=== PATIENT | male | born 1940 | race Hispanic/Latino ===

== ENCOUNTER → 2017-08-14 | Outpatient (CLI) | payer BC, MEDICARE ==
[~2017-08-14] MED LIST: ASPIRIN81 M2 PO; ELMIRON100 MG PO; FLUTICASONE PROP; HYDROCODONE; MELOXICAM7.5 MG PO; METOPROLOL SUCC50 MG PO; NITROFURANTOIN100 MG PO; Z.0.LISINOPRIL40 MG PO; Z.0.METOPROLOL TART5 PO; Z.0.TAMSULOSIN HCL0. PO; Z.0.TRIAMTERENE-HC1 PO; Z.1.TIZANIDINE HCL2 PO; Z.2.METFORMIN HCL500 PO
--- NOTE | 2017-08-14 10:49 | Diagnostic Imaging Report ---
PROCEDURE:KNEE THREE VIEWS BILATERAL COMPARISON:None. INDICATIONS:KNEE PAIN FINDINGS: There are no fractures, dislocations, lytic or blastic lesions. The bones are well-mineralized. The soft-tissues are unremarkable. Tricompartmental degenerative changes evidenced by joint space narrowing and subchondral sclerosis. Atherosclerotic calcifications. CONCLUSION: No acute radiographic abnormality. Degenerative changes. Dictated by: Dung Acevedo M.D. on 08/14/2017 at 10:50 Electronically approved by: Dung Acevedo M.D. on 08/14/2017 at 10:50
== END ==
LOC: RAD 08:53
PROVIDERS: ATTEND Internal Medicine
DX: M25.562 Pain in left knee (principal); M25.561 Pain in right knee

== ENCOUNTER → 2017-08-26 | Outpatient (CLI) | payer BC, MEDICARE ==
--- NOTE | 2017-08-26 09:18 | Diagnostic Imaging Report ---
Right knee MRI without contrast. History: Knee pain. Meniscus tear. Decreased range of motion. Pain not responding to conservative management. Arthritis. Comparison: None. Technique: Multiplanar multi-sequence MRI of the knee without contrast. Findings: Medial compartment: There is a complex tear involving the posterior horn and body segments of the medial meniscus. Meniscal tissue is displaced to the periphery. There is advanced full-thickness articular cartilage loss in the medial compartment with underlying bone marrow edema. There are peripheral marginal osteophytes. The medial collateral ligament complex is intact. Lateral compartment: There is a complex tear involving the posterior horn and body segments of the lateral meniscus. There are regions of articular cartilage fraying and deep fissuring in the lateral compartment with subchondral cystic change and mild bone marrow edema. There are peripheral marginal osteophytes. The lateral collateral ligament complex is intact. Intercondylar notch: There is a chronic appearing full-thickness anterior cruciate ligament tear. The posterior cruciate ligament is intact. Patellofemoral compartment: There are regions of full-thickness articular cartilage loss in the patellofemoral compartment. There are peripheral marginal osteophytes area there is mild underlying bone marrow edema. Extensor mechanism: The quadriceps and patellar tendons are normal. Other findings: There is a joint effusion and synovitis. There is no acute fracture, subluxation or avascular necrosis. Varicose veins are seen. 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 Complex lateral meniscus tear with less severe degenerative arthrosis in the lateral compartment of the knee. 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 Regions of full-thickness articular cartilage loss in the patellofemoral compartment. Signed by: Dr. Srinath Metzger M.D. on 08/26/2017 9:15 AM
--- NOTE | 2017-08-26 09:24 | Diagnostic Imaging Report ---
Left knee MRI without contrast. History: Knee pain. Meniscus tear. Decreased range of motion. Pain not responding to conservative management. Arthritis. Comparison: None. Technique: Multiplanar multi-sequence MRI of the knee without contrast. Findings: Medial compartment: There is a complex tear involving the posterior horn and body segments of the medial meniscus. Meniscal tissue is displaced to the periphery. There are regions of articular cartilage fraying and deep fissuring in the medial compartment with underlying bone marrow edema. There are peripheral marginal osteophytes. The medial collateral ligament complex is intact. Lateral compartment: There is a complex tear involving the anterior horn and body segments of the lateral meniscus. There are regions of articular cartilage fraying and deep fissuring in the lateral compartment with mild bone marrow edema. There are peripheral marginal osteophytes. The lateral collateral ligament complex is intact. Intercondylar notch: There is a chronic appearing near full-thickness anterior cruciate ligament tear. A few intact fibers are seen. The posterior cruciate ligament is intact. Patellofemoral compartment: There are regions of full-thickness articular cartilage loss in the patellofemoral compartment. There are peripheral marginal osteophytes. There is mild underlying bone marrow edema. Extensor mechanism: The quadriceps and patellar tendons are normal. Other findings: There is a joint effusion and synovitis. There is no acute fracture, subluxation or avascular necrosis. Varicose veins are seen. IMPRESSION: Complex medial meniscus tear with moderate degenerative arthrosis in the medial compartment of the knee. Complex lateral meniscus tear with less severe degenerative arthrosis in the lateral compartment of the knee. Chronic appearing near full-thickness anterior cruciate ligament tear. Regions of full-thickness articular cartilage loss in the patellofemoral compartment. Signed by: Dr. Srinath Metzger M.D. on 08/26/2017 9:21 AM
== END ==
LOC: MRI 07:37
PROVIDERS: ATTEND Specialist
DX: S83.242A Other tear of medial meniscus, current injury, left knee, initial encounter (principal); S83.241A Other tear of medial meniscus, current injury, right knee, initial encounter

== ENCOUNTER 2017-10-15 16:07 | Outpatient (RCR) | payer BC, MEDICARE | END 2017-10-25 | LOC: PT 16:07 | PROVIDERS: ATTEND Specialist | DX: M25.562 Pain in left knee (principal); M25.561 Pain in right knee | CPT/HCPCS: 97110 ×2; 97161; G8978; G8979 ==

== ENCOUNTER → 2017-11-25 | Outpatient (RCR) | payer BC, MEDICARE | LOC: PT 10-28 16:12 | PROVIDERS: ATTEND Specialist | DX: M25.562 Pain in left knee (principal); M25.561 Pain in right knee | CPT/HCPCS: 97010; 97110 ×9; 97140; 97164; G8978; G8979 ==

== ENCOUNTER 2017-12-16 07:45 | Outpatient (RCR) | payer BC, MEDICARE | END 2017-12-26 | LOC: PT 07:45 | PROVIDERS: ATTEND Specialist | DX: M25.562 Pain in left knee (principal); M25.561 Pain in right knee; M25.662 Stiffness of left knee, not elsewhere classified; M25.661 Stiffness of right knee, not elsewhere classified | CPT/HCPCS: 97110 ×5; G8978; G8979 ==

== ENCOUNTER 2018-07-28 11:10 | Inpatient (IN) | payer BC, MEDICARE ==
[~2018-07-28] VITALS: Ht 172.7 cm; Wt 80.8 kg
--- OUTSIDE RECORDS SUMMARY | 2018-07-28 11:14 | XMS REPORT | Summary of Care ---
Author Author [facility] Organization [facility] Address Unknown Phone Unavailable Encounter [facility] [place](FIN) [phone] Date(s): 05/18/18 - 05/18/18 [facility] [address], [address] [place], [place] [address] [phone] Discharge Disposition: Home or Self Care Attending Physician: Js Bellamy MD Referring Physician: Jarod Rainey MD Vital Signs No data available for this section Problem List Condition Effective Dates Status Health Status Informant Diabetes Resolved mellitus(Confirmed) Escherichia Active coli(Confirmed)1 Hypertension(Confirm Resolved ed) 1Problem added by Discern Expert. Allergies, Adverse Reactions, Alerts Substance Reaction Severity Status penicillins Active contrast media SV^Severe Active (iodine-based) Medications No data available for this section Results No data available for this section Immunizations Not Given Vaccine Date Status Refusal Reason pneumococcal 23-valent vaccine 05/12/14 Not Given Patient Refuses Procedures Procedure Date Related Diagnosis Body Site Status Craniotomy 04/20/18 Completed Appendectomy Completed Social History Social History Type Response Alcohol Never Smoking Status Former smoker; Previous treatment: None; Ready to change: No; Concerns about tobacco use in household: No; Exposure to Tobacco Smoke None; Cigarette Smoking Last 365 Days No; Reg Smoking Cessation Counseling No entered on: 05/18/18 Assessment and Plan No data available for this section
--- OUTSIDE RECORDS SUMMARY | 2018-07-28 11:14 | XMS REPORT | Continuity of Care Document ---
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 [facility] CEREBRAL MENINGES/GAMMA KNIFE CONSULT Active 05/05/2018 [facility] NEW ONSET SEIZURE Active 04/14/2018 [facility] SEIZURE Active 04/14/2018 [facility] J45.909 - "UNSPECIFIED ASTHMA, UNCOMPLIC Active 05/01/2016 [facility] [place] UNKN Active 12/14/2015 [facility] J40 - "BRONCHITIS, NOT SPECIFIED A" Active 09/12/2015 [facility] [place] Discharge Diagnosis: UTI 07/14/2014 07/16/2014 [facility] Discharge Diagnosis: Cellulitis 07/14/2014 07/16/2014 [facility] TESTICULAR PAIN Active 07/14/2014 [facility] SPLIT [id number] Active 07/07/2014 [facility] CHEST PAIN Active 05/11/2014 [facility] SOB, CHEST PAIN Active 05/11/2014 [facility] UTI Active 05/11/2014 [facility] 466.0 - ACUTE BRONCHITI Active 02/23/2014 [facility] [place] COUGH Active 05/29/2012 [facility] ALLERGIES Active 05/23/2011 [facility] LEG PAIN AND BACK Active 04/11/2011 [facility] HTN CRISIS Active 06/09/2001 [facility] Diabetes mellitus Resolved Problem 06/09/2012 [facility] Hypertension Resolved Problem 06/09/2012 [facility] Prostate Resolved Problem 12/17/2015 [facility], [facility] [place] Escherichia coli<sup>1</sup> Active Problem 05/04/2016 Problem added by Discern Expert. [facility], [facility] [place] Diabetes mellitus Resolved Problem 06/08/2018 [facility] [place],[facility] Escherichia coli<sup>1</sup> Active Problem 06/08/2018 [facility] Discern Expert[facility] Problem 06/08/2018 [facility] Diabetes mellitus Resolved Problem 05/25/2018 SELENA Renner,[facility] Escherichia coli<sup>1</sup> Active Problem 05/25/2018 Problem added by Discern Expert. [facility] Hypertension Resolved Problem 05/25/2018 SELENA Renner,[facility] URIN TRACT INFECTION NOS Active [facility] OBSTRUCTIVE SLEEP APNEA Active [facility] XRAY Active [facility] BENIGN NEOPLASM OF CEREBRAL MENINGES Active [facility] UNSPECIFIED CONVULSIONS Active [facility] Medications Medication Details Route Status Patient Instructions Ordering Provider Order Date Source NS (Bolus) IV 500 mL, 500 ml/hr, Infuse Over: 1 hr, Route: IV, 500, Drug form: INJ, ONCE, Priority: STAT, Dosing Weight 84.091 kg, Start date: 05/22/18 22:22:00 TOY DEPARTMENT MANAGER, Stop date: 05/22/18 22:22:00 TOY DEPARTMENT MANAGER Inactive 05/23/2018 [facility] Acetaminophen 325 MG / Hydrocodone Bitartrate 5 MG Oral Tablet 1 tab, Route: PO, Drug Form: TAB, Dosing Weight 84.091, kg, Q4H, PRN Pain Score 4-6, Start date: 05/18/18 11:06:00 TOY DEPARTMENT MANAGER, Duration: 30 day, Stop date: 06/17/18 11:05:00 CSTNotes: (Same as: [place] 325/5) Do not exceed 4gm/day of acetaminophen. Inactive 05/18/2018 [facility] Sodium Chloride 0.9% IV 1,000 mL 1,000 mL, Rate: 50 ml/hr, Infuse over: 20 hr, Route: IV, Dosing Weight 84.091 kg, Total Volume: 1,000, Priority: Routine, Start date: 05/18/18 11:06:00 TOY DEPARTMENT MANAGER, Duration: 30 day, Stop date: 06/17/18 11:05:00 TOY DEPARTMENT MANAGER, 2.03, m2 Inactive 05/18/2018 [facility] Acetaminophen 325 mg, 1 tab, Route: PO, Drug form: TAB, Q4H, Dosing Weight 84.091, kg, PRN Pain Score 1-3, Start date: 05/18/18 11:06:00 TOY DEPARTMENT MANAGER, Duration: 30 day, Stop date: 06/17/18 11:05:00 CSTNotes: Do not exceed 4 gm/day. (Same as: Tylenol) Inactive 05/18/2018 [facility] Fentanyl 50 microgram, Route: IVP, ONCALL, Dosing Weight 90, kg, Priority: Routine, Start date: 05/18/18 6:00:00 TOY DEPARTMENT MANAGER, Duration: 1 doses or times Inactive 05/18/2018 [facility] Bupivacaine Hydrochloride 2.5 MG/ML / Epinephrine 0.005 MG/ML Injectable Solution 30 mL, Route: MISC, Dosing Weight 90, kg, ONCALL, Start date: 05/18/18 6:00:00 TOY DEPARTMENT MANAGER, Duration: 30 day, Stop date: 06/17/18 5:59:00 TOY DEPARTMENT MANAGER Inactive 05/18/2018 [facility] Bacitracin 0.5 UNT/MG / Polymyxin B 10 UNT/MG Topical Ointment [Polysporin] 1 appl, Route: TOP, ONCALL, Drug form: OINT, Priority: Routine, Start date: 05/18/18 6:00:00 TOY DEPARTMENT MANAGER, Duration: 1 doses or times Inactive 05/18/2018 [facility] Sodium Chloride 0.9% IV 1,000 mL 1,000 mL, Rate: 50 ml/hr, Infuse over: 20 hr, Route: IV, Dosing Weight 90 kg, Total Volume: 1,000, Priority: Routine, Start date: 05/18/18 5:21:00 TOY DEPARTMENT MANAGER, Duration: 30 day, Stop date: 06/17/18 5:20:00 TOY DEPARTMENT MANAGER, 2.07, m2 Inactive 05/18/2018 [facility] Famotidine 20 mg, 2 mL, Route: IVP, Drug form: INJ, ONCE, Dosing Weight 90, kg, Start date: 05/18/18 5:21:00 TOY DEPARTMENT MANAGER, Stop date: 05/18/18 5:21:00 CSTNotes: (Same as: Pepcid) Can be dilute in 5-10cc NS IVP: Slow IV push over at least 2 minutes. Inactive 05/18/2018 [facility] Dexamethasone 6 mg, 0.6 mL, Route: IVP, Drug form: INJ, ONCE, Dosing Weight 90, kg, Start date: 05/18/18 5:21:00 TOY DEPARTMENT MANAGER, Stop date: 05/18/18 5:21:00 CSTNotes: MEDICATION WASTE Product Size: 10 mg Product Wasted: _4__ mg Inactive 05/18/2018 [facility] Ondansetron 4 mg, 2 mL, Route: IVP, Drug form: INJ, Q6H, Dosing Weight 90, kg, PRN Nausea & Vomiting, Start date: 05/18/18 5:21:00 TOY DEPARTMENT MANAGER, Duration: 30 day, Stop date: 06/17/18 5:20:00 CSTNotes: (Same as: Zofran) MEDICATION WASTE Product Size: 4 mg Product Wasted: _0__ mg Inactive 05/18/2018 [facility] Fentanyl 25 microgram, 0.5 mL, Route: IVP, Drug form: INJ, Q1H, Dosing Weight 90, kg, PRN Pain Score 7-10, Priority: Routine, Start date: 05/18/18 5:21:00 TOY DEPARTMENT MANAGER, Duration: 1 doses or times, Stop date: 05/19/18 0:00:00 CSTNotes: (Same as: Sublimaze) Preservative free. Inactive 05/18/2018 [facility] Promethazine 25 mg, 1 mL, Route: IVPB, Drug form: INJ, Q6H, Dosing Weight 90, kg, PRN Nausea & Vomiting, Start date: 05/18/18 5:21:00 TOY DEPARTMENT MANAGER, Duration: 30 day, Stop date: 06/17/18 5:20:00 CSTNotes: Do not give IV pu sh. (Same as: Phenergan) Inactive 05/18/2018 [facility] Diphen 25 mg oral capsule 50 mg=2 cap, PO, ONCE, take 2 caps by mouth one hour before the contrast medium injection., # 2 cap, 0 Refill(s), Pharmacy: [place] [id number] Active 05/15/2018 [facility] Prednisone 50 MG Oral Tablet 50 mg=1 tab, PO, Daily, take 1 tab by mouth 13 hours, 7 hours, and 1 hour before cotrast medium injection, # 3 tab, 0 Refill(s), Pharmacy: [place] [id number] No Longer Active 05/15/2018 [facility] Rocephin 1 gm, Route: IVPB, Drug form: PDR/INJ, ONCE, Dosing Weight 104.545, kg, Priority: STAT, Start date: 07/14/14 10:20:00, Stop date: 07/14/14 10:20:00 Inactive 07/14/2014 [facility] clindamycin 300 mg oral capsule 300 mg=1 cap, PO, Q6H, # 28 cap, 0 Refill(s) Active 07/14/2014 [facility] Ciprofloxacin 500 MG Oral Tablet [Cipro] 500 mg=1 tab, PO, Q12H, # 28 tab, 0 Refill(s) Active 07/14/2014 [facility] Morphine 4 mg, 2 mL, Route: IVP, Drug form: INJ, ONCE, Dosing Weight 104.545, kg, Priority: STAT, Start date: 07/14/14 8:19:00, Stop date: 07/14/14 8:19:00Notes: (Same as:MORPhine Sulfate) Inactive 07/14/2014 [facility] Zofran 4 mg, 2 mL, Route: IVP, Drug form: INJ, ONCE, Dosing Weight 104.545, kg, Priority: STAT, Start date: 07/14/14 8:19:00, Stop date: 07/14/14 8:19:00Notes: (Same as: Zofran) Inactive 07/14/2014 [facility] Sodium Chloride 0.154 MEQ/ML Injectable Solution 1,000 mL, 1,000 ml/hr, Infuse Over: 1 hr, Route: IV, 1,000, Drug form: INJ, ONCE, Priority: STAT, Dosing Weight 104.545 kg, Start date: 07/14/14 8:19:00, Duration: 1 doses or times, Stop date: 07/14/14 8:19:00 Inactive 07/14/2014 [facility] 0.4 ML Enoxaparin sodium 100 MG/ML Prefilled Syringe [Lovenox] 40 mg, SUB-Q, Daily, # 20 syr, 0 Refill(s) Active 05/19/2014 [facility] Vitamin D3 1000 intl units oral tablet, chewable 1,000 IntlUnit=1 tab, CHEW, Daily, 0 Refill(s) Active 05/19/2014 [facility] Insulin Aspart 100 unit/ml - (Starting CD) See Special Instructions, SUB-Q, TID-Before Meals, Check blood sugar before breakfast, lunch, and dinner, and inject correction doses: Inject 1 unit if Sugar 150-199, Inject 2 units if Sugar 200-249, Inject 3 units if Sugar 250-299, Inject 4 units if...Special Instructions: Check blood sugar before breakfast, lunch, and dinner, and inject correction doses: Inject 1 unit if Sugar 150-199, Inject 2 un its if Sugar 200-249, Inject 3 units if Sugar 250-299, Inject 4 units if Sugar 300-349, Inject 5 units if Sugar is 350 or more Active 05/19/2014 [facility] Aspirin 325 MG Oral Tablet 325 mg=1 tab, PO, Daily, # 90 tab, 0 Refill(s) Active 05/19/2014 [facility] Metformin hydrochloride 500 MG Oral Tablet 500 mg=1 tab, PO, BID, # 30 tab, 0 Refill(s) Active 05/19/2014 [facility] Insulin, Aspart, Human 5 unit, SUB-Q, TID-Before Meals, Blood Glucose Results, 0 Refill(s) No Longer Active 05/18/2014 [facility] glucagon recombinant 1 mg injection 1 mg, IM, PRN, Blood Glucose Results, 0 Refill(s) Active 05/18/2014 [facility] finasteride 5 mg oral tablet 5 mg=1 tab, PO, Daily, 0 Refill(s) Active 05/18/2014 [facility] Enoxaparin 40 mg=0.4 mL, SUB-Q, [id number], 0 Refill(s) No Longer Active 05/18/2014 [facility] Avodart 0.5 mg, Route: PO, Drug form: CAP, Daily, Dosing Weight 96.727, kg, Start date: 05/18/14 9:00:00, Duration: 30 day, Stop date: 06/16/14 9:00:00 No Longer Active 05/18/2014 [facility] meropenem 500 mg, Route: IVPB, Drug form: PDR/INJ, ABXQ6H, Dosing Weight 96.727, kg, CrCL >=50ml/min, Extended infusion, infuse over 3 hours, Start date: 05/15/14 16:00:00, Duration: 30 day, Stop date: 06/14/14 10:00:00Notes: Same as Merrem.. No Longer Active 05/15/2014 [facility] metoprolol extended release 50 mg, 1 tab, Route: PO, Drug form: ERTAB, Daily, Start date: 05/14/14 9:00:00, Duration: 30 day, Stop date: 06/12/14 9:00:00Notes: (Same as: Toprol XL) May split tab, but do not crush. No Longer Active 05/14/2014 [facility] meloxicam 7.5 mg, 1 tab, Route: PO, Drug form: TAB, Daily, Dosing Weight 104.091, kg, Start date: 05/14/14 9:00:00, Duration: 30 day, Stop date: 06/12/14 9:00:00Notes: (Same as: Mobic) No Longer Active 05/14/2014 [facility] Lisinopril 40 mg, 2 tab, Route: PO, Drug form: TAB, Daily, Dosing Weight 104.091, kg, Start date: 05/14/14 9:00:00, Duration: 30 day, Stop date: 06/12/14 9:00:00Notes: (Same as: Prinivil, Zestril) No Longer Active 05/14/2014 [facility] Dutasteride 0.5 mg, Route: PO, Drug form: CAP, Daily, Dosing Weight 104.091, kg, Start date: 05/14/14 9:00:00, Duration: 30 day, Stop date: 06/12/14 9:00:00 No Longer Active 05/14/2014 [facility] Vitamin B 12 1,000 microgram, 2 tab, Route: PO, Drug form: TAB, Daily, Dosing Weight 104.091, kg, Start date: 05/14/14 9:00:00, Duration: 30 day, Stop date: 06/12/14 9:00:00Notes: (Same As: Vitamin B12) No Longer Active 05/14/2014 [facility] Proscar 5 mg, 1 tab, Route: PO, Drug form: TAB, Daily, Start date: 05/14/14 9:00:00, Duration: 30 day, Stop date: 06/12/14 9:00:00Notes: (Same as: Proscar) "Do Not Crush" No Longer Active 05/14/2014 [facility] Hydrochlorothiazide 25 MG / Triamterene 37.5 MG Oral Capsule 1 tab, Route: PO, Drug Form: TAB, Dosing Weight 104.091, kg, Before Breakfast, Start date: 05/14/14 7:30:00, Duration: 30 day, Stop date: 06/12/14 7:30:00Notes: (triamterene-hydrochlorothiazide 37.5-25 mg TAB) (Same As: Maxzide-25) No Longer Active 05/14/2014 [facility] Robitussin-DM 5 ml, Route: PO, Drug Form: SYRP, Dosing Weight 96.727, kg, Q6H, PRN as needed for cough, Start date: 05/14/14 6:42:00, Duration: 30 day, Stop date: 06/13/14 6:41:00Notes: (dextromethorphan-guaifenes in 10-100mg/5ml 10 ml oral SOLN ud) (Same as: Robitussin DM) No Longer Active 05/14/2014 [facility] tamsulosin 0.4 mg, 1 cap, Route: PO, Drug form: CAP, Daily, Dosing Weight 96.727, kg, Priority: NOW, Start date: 05/13/14 22:06:00, Duration: 30 day, Stop date: 06/12/14 9:00:00Notes: (Same As: Flomax) "Do Not Crush" No Longer Active 05/14/2014 [facility] Metformin 500 mg, 1 tab, Route: PO, Drug form: TAB, BID, Dosing Weight 104.091, kg, Start date: 05/13/14 9:00:00, Duration: 30 day, Stop date: 06/11/14 17:00:00Notes: (Same as: Glucophage) Take with meal No Longer Active 05/13/2014 [facility] Enoxaparin 40 mg, 0.4 mL, Route: SUB-Q, Drug form: INJ, [id number], Dosing Weight 104.091, kg, Start date: 05/12/14 22:00:00, Duration: 30 day, Stop date: 06/10/14 22:00:00Notes: (Same as: Lovenox) No Longer Active 05/13/2014 [facility] Tylenol 650 mg, 2 tab, Route: PO, Drug form: TAB, Q6H, Dosing Weight 104.091, kg, PRN Pain Score 1-3, Start date: 05/12/14 19:28:00, Duration: 30 day, Stop date: 06/11/14 19:27:00Notes: Do not exceed 4 gm/day. (Same as: Tylenol) No Longer Active 05/13/2014 [facility] Glucagon 1 mg, Route: IM, Drug form: PDR/INJ, PRN, Dosing Weight 104.091, kg, PRN Blood Glucose Results, Start date: 05/12/14 17:57:00, Duration: 30 day, Stop date: 06/11/14 17:56:00 No Longer Active 05/12/2014 [facility] Dextrose 50% Syringe 12.5 gm, 25 mL, Route: IVP, Drug Form: INJ, Dosing Weight 104.091, kg, PRN, PRN Blood Glucose Results, Start date: 05/12/14 17:57:00, Duration: 30 day, Stop date: 06/11/14 17:56:00 No Longer Active 05/12/2014 [facility] Insulin, Aspart, Human 5 unit, 0.05 mL, Route: SUB-Q, Drug form: SOLN, TID-Before Meals, Dosing Weight 104.091, kg, PRN Blood Glucose Results, Start date: 05/12/14 17:57:00, Duration: 30 day, Stop date: 06/11/14 17:56:00Notes: Roll in palms of hands gently; Do not shake vigorously. (Same as: NovoLOG) "single patient use only" Stable for 28 days at room temperature. Expires in days from Date No Longer Active 05/12/2014 [facility] Dextrose 50% Syringe 50 mL, Route: IVP, Dosing Weight 104.091, kg, PRN, PRN Blood Glucose Results, Start date: 05/12/14 17:55:00, Duration: 30 day, Stop date: 06/11/14 17:54:00 Inactive 05/12/2014 [facility] Glucagon 1 mg, Route: IM, PRN, Dosing Weight 104.091, kg, PRN Blood Glucose Results, Start date: 05/12/14 17:55:00, Duration: 30 day, Stop date: 06/11/14 17:54:00 Inactive 05/12/2014 [facility] Levaquin 500 mg, 100 mL, Route: IVPB, Drug form: INJ, [id number], Dosing Weight 104.091, kg, Start date: 05/12/14 17:00:00, Duration: 30 day, Stop date: 06/10/14 17:00:00Notes: (Same as:Levaquin) No Longer Active 05/12/2014 [facility] Hydrochlorothiazide 25 MG / Triamterene 37.5 MG Oral Capsule 1 cap, PO, Before Breakfast, 0 Refill(s) Active 05/12/2014 [facility] pneumococcal capsular polysaccharide type 1 vaccine / pneumococcal capsular polysaccharide type 10A vaccine / pneumococcal capsular polysaccharide type 11A vaccine / pneumococcal capsular polysaccharide type 12F vaccine / pneumococcal capsular polysacchar 0.5 ml, Route: IM, Drug Form: INJ, Daily, Start date: 05/12/14 9:00:00, Duration: 1 doses or times, Stop date: 05/12/14 9:00:00Notes: (Same as: Pneumovax 23) Refrigerate Inactive 05/12/2014 [facility] Saline Flush 0.9% 10 ml, Route: IVP, Drug Form: INJ, Dosing Weight 104.545, kg, Q12H, Start date: 05/12/14 9:00:00, Duration: 30 day, Stop date: 06/10/14 21:00:00Notes: (Same as: BD Posiflush) No Longer Active 05/12/2014 [facility] Aspirin 325 MG Enteric Coated Tablet 325 mg, 1 tab, Route: PO, Drug form: ECTAB, Daily, Dosing Weight 104.545, kg, Start date: 05/12/14 9:00:00, Duration: 30 day, Stop date: 06/10/14 9:00:00Notes: (Do Not Crush) Do not crush or chew. No Longer Active 05/12/2014 [facility] tamsulosin 0.4 mg oral capsule 0.4 mg=1 cap, PO, Daily, # 30 cap, 0 Refill(s) Active 05/12/2014 [facility] Dutasteride 0.5 MG / Tamsulosin hydrochloride 0.4 MG Oral Capsule [Carlene] 1 cap, PO, Daily, 0 Refill(s) Active 05/12/2014 [facility] Sulfamethoxazole 400 MG / Trimethoprim 80 MG Oral Tablet 2 tab, BID, 0 Refill(s) No Longer Active 05/12/2014 [facility] Sulfamethoxazole 0 Refill(s) No Longer Active 05/12/2014 [facility] Vitamin D 1000, 0 Refill(s) No Longer Active 05/12/2014 [facility] Vitamin B-12 1000 mcg oral tablet 1,000 microgram=1 tab, PO, Daily, # 30 tab, 0 Refill(s) No Longer Active 05/12/2014 [facility] metoprolol 50 mg oral tablet, extended release 50 mg, PO, Daily, # 30 tab, 0 Refill(s) Active 05/12/2014 [facility] aspirin 0 Refill(s) No Longer Active 05/12/2014 [facility] Metformin 500 mg, BID, 0 Refill(s) No Longer Active 05/12/2014 [facility] meloxicam 7.5 mg oral tablet 7.5 mg=1 tab, PO, Daily, # 30 tab, 0 Refill(s) Active 05/12/2014 [facility] lisinopril 40 mg oral tablet 40 mg=1 tab, PO, Daily, # 30 tab, 0 Refill(s) Active 05/12/2014 [facility] Saline Flush 0.9% 10 ml, Route: IVP, Drug Form: INJ, Dosing Weight 104.545, kg, PRN, PRN Line Flush, Start date: 05/12/14 7:31:00, Duration: 30 day, Stop date: 06/11/14 7:30:00Notes: (Same as: BD Posiflush) No Longer Active 05/12/2014 [facility] Nitroglycerin 0.4 mg, 1 tab, Route: SL, Drug form: TAB, Q5Min, Dosing Weight 104.545, kg, PRN Chest Pain, Start date: 05/12/14 7:31:00, Duration: 3 doses or times, Stop date: Limited # of timesNotes: (Same as:Nitr oquick, Nitrostat) "Do Not Crush" Sublingual tablet No Longer Active 05/12/2014 [facility] aspirin 325 mg, Route: PO, Drug form: TAB, ONCE, Dosing Weight 104.545, kg, Priority: STAT, Start date: 05/12/14 3:58:00, Stop date: 05/12/14 3:58:00 Inactive 05/12/2014 [facility] Albuterol 0.833 MG/ML / Ipratropium [place] 0.167 MG/ML Inhalant Solution [DuoNeb] 3 ml, Route: INHALATION, Drug Form: SOLN, Dosing Weight 104.545, kg, PRN, PRN Respiratory Protocol, Start date: 05/12/14 2:12:00, Duration: 30 day, Stop date: 06/11/14 2:11:00Notes: (Same as: Duoneb) No Longer Active 05/12/2014 [facility] Sodium Chloride 0.154 MEQ/ML Injectable Solution 1,000 mL, 1,000 ml/hr, Infuse Over: 1 Hour, Route: IV, ONCE, Priority: STAT, Dosing Weight 104.545 kg, Start date: 05/12/14 1:46:00, Duration: 1 doses or times, Stop date: 05/12/14 1:46:00 Inactive 05/12/2014 [facility] Ciprofloxacin 400 mg, Route: IVPB, ONCE, Dosing Weight 104.545, kg, Priority: STAT, Start date: 05/12/14 1:45:00, Stop date: 05/12/14 1:45:00 Inactive 05/12/2014 [facility] Saline Flush 0.9% 10 mL, Route: IVP, Drug Form: INJ, Dosing Weight 104.545, kg, PRN, PRN Line Flush, Start date: 05/12/14 0:52:00, Duration: 30 day, Stop date: 06/11/14 0:51:00Notes: (Same as: BD Posiflush) Inactive 05/12/2014 [facility] albuterol 90 mcg/inh inhalation aerosol 1-2 puff, INHALATION, QID, PRN, 1 unit, wheezing, Substitution Allowed, Maintenance INHALATION Active Shahnaz 06/07/2012 [facility] Azithromycin 5 Day Dose Pack 250 mg oral tablet 250 mg, PO, Daily, Take 2 tablets by mouth the first day then 1 tablet by mouth days 2- 5, 6 tab, Substitution AllowedTake 2 tablets by mouth the first day then 1 tablet by mouth days 2-5 PO Active [place] 06/07/2012 [facility] DuoNeb inhalation solution 3 mL, Route: INHALATION, Drug Form: SOLN, Dosing Weight 100, kg, ONCE, Start date: 06/07/12 15:07:00, Stop date: 06/07/12 15:07:00 INHALATION No Longer Active [place] 06/07/2012 [facility] Saline Flush 0.9% 5 mL, Route: IVP, Drug Form: INJ, Dosing Weight 100, kg, Q8H, PRN Line Flush, Start date: 06/07/12 15:07:00, Duration: 30 day, Stop date: 07/07/12 15:06:00, Administer at least once every 8 hoursAdmi nister at least once every 8 hours IVP No Longer Active [place] 06/07/2012 [facility] predniSONE 50 mg oral tablet 50 mg, 1 tab, PO, Daily, 5 tab, Substitution Allowed, TAB PO Active [place] 05/23/2011 [facility] Pepcid 20 mg oral tablet 20 mg, 1 tab, Route: PO, Drug form: TAB, ONCE, Start date: 05/23/11 14:30:00, Stop date: 05/23/11 14:30:00 PO No Longer Active [place] 05/23/2011 [facility] albuterol 0.083% inhalation solution 2.49 mg, Route: NEB, ONCE, Priority: STAT, Start date: 05/23/11 14:03:00, Stop date: 05/23/11 14:03:00 NEB No Longer Active [place] 05/23/2011 [facility] budesonide 0.5 mg, Route: NEB, ONCE, Priority: STAT, Start date: 05/23/11 14:03:00, Stop date: 05/23/11 14:03:00 NEB No Longer Active [place] 05/23/2011 [facility] Saline Flush 0.9% 5 ml, Route: IVP, Drug Form: INJ, PRN, PRN Line Flush, Start date: 05/23/11 13:57:00, Duration: 30 day, Stop date: 06/22/11 13:56:00 IVP No Longer Active [place] 05/23/2011 [facility] famotidine 20 mg, 2 mL, Route: IVP, Drug form: INJ, ONCE, Priority: STAT, Start date: 05/23/11 13:57:00, Stop date: 05/23/11 13:57:00 IVP No Longer Active [place] 05/23/2011 [facility] methylPREDNISolone SODium SUCCinate 125 mg, 2 mL, Route: IVP, Drug form: INJ, ONCE, Priority: STAT, Start date: 05/23/11 13:57:00, Stop date: 05/23/11 13:57:00 IVP No Longer Active [place] 05/23/2011 [facility] diphenhydrAMINE 25 mg, 0.5 mL, Route: IVP, Drug form: INJ, ONCE, Priority: STAT, Start date: 05/23/11 13:57:00, Stop date: 05/23/11 13:57:00 IVP No Longer Active [place] 05/23/2011 [facility] epinephrine 0.3 mg, 0.3 mL, Route: SUB-Q, Drug form: INJ, ONCE, Priority: STAT, Start date: 05/23/11 13:57:00, Stop date: 05/23/11 13:57:00 SUB-Q No Longer Active [place] 05/23/2011 [facility] [place] 7.5/325 oral tablet 1-2 tab, PO, Q4-6H, PRN, 30 tab, Pain, Substitution Allowed, Maintenance PO Active Edmundo 04/12/2011 [facility] acetaminophen-hydrocodone 325 mg-10 mg oral tablet 1 tab, Route: PO, Drug Form: TAB, ONCE, STAT, Start date: 04/12/11 6:37:00, Stop date: 04/12/11 6:37:00 PO No Longer Active [facility] 04/12/2011 [facility] Allergies, Adverse Reactions, Alerts Substance Category Reaction Severity Reaction type Status Date Reported Comments Source penicillins Assertion Drug allergy Active [facility] contrast media (iodine-based) Assertion SV^Severe Drug allergy Active [facility] Immunizations Immunization Date Given Site Status Last Updated Comments Source pneumococcal 23-valent vaccine 05/12/2014 Not Given [facility], [facility] [place] pneumococcal 23-valent vaccine 05/12/2014 [facility] 05/12/2014 Not Given [facility] Results Order Name Results Value Reference Range Date Interpretation Comments Source CHEM PANEL eGFR 47 mL/min/1.73m2 05/23/2018 Result Comment: The eGFR is calculated using the CKD-EPI formula. In most young, healthy individuals the eGFR will be >90 mL/min/1.73m2. The eGFR declines with age. An eGFR of 60-89 may be normal in some populations, particularly the elderly, for whom the CKD-EPI formula has not been extensively validated. Use of the eGFR is not recommended in the following populations: Individuals with unstable creatinine concentrations, including patients and those with serious co-morbid conditions. Patients with extremes in muscle mass or diet. The data above are obtained from the National Kidney Disease Education Program (NKDEP) which additionally recommends that when the eGFR is used in patients with extremes of body mass index for purposes of drug dosing, the eGFR should be multiplied by the estimated BMI. [facility] CHEM PANEL Calcium Lvl 9.1 mg/dL 8.5 - 10.5 05/23/2018 [facility] CHEM PANEL CO2 27 meq/L 24 - 32 05/23/2018 [facility] CHEM PANEL Chloride Lvl 102 meq/L 95 - 109 05/23/2018 [facility] CHEM PANEL Potassium Lvl 3.9 meq/L 3.5 - 5.1 05/23/2018 [facility] CHEM PANEL Sodium Lvl 139 meq/L 135 - 145 05/23/2018 [facility] CHEM PANEL BUN 33 mg/dL 7 - 22 05/23/2018 [facility] CHEM PANEL Creatinine Lvl 1.44 mg/dL 0.50 - 1.40 05/23/2018 [facility] CHEM PANEL Glucose Lvl 109 mg/dL 70 - 99 05/23/2018 [facility] CHEM PANEL AGAP 13.9 meq/L 10.0 - 20.0 05/23/2018 [facility] HEMATOLOGY Platelet 164 K/CMM 133 - 450 05/23/2018 [facility] HEMATOLOGY MPV 7.8 fL 7.4 - 10.4 05/23/2018 [facility] HEMATOLOGY MCHC 35.2 g/dL 32.0 - 36.0 05/23/2018 [facility] HEMATOLOGY RDW 13.6 % 11.5 - 14.5 05/23/2018 [facility] HEMATOLOGY MCH 33.2 pg 27.0 - 31.0 05/23/2018 [facility] HEMATOLOGY Hgb 13.7 g/dL 14.0 - 18.0 05/23/2018 [facility] HEMATOLOGY Hct 39.0 % 42.0 - 54.0 05/23/2018 [facility] HEMATOLOGY WBC 9.5 K/CMM 3.7 - 10.4 05/23/2018 [facility] HEMATOLOGY RBC 4.14 M/CMM 4.70 - 6.10 05/23/2018 [facility] HEMATOLOGY MCV 94.2 fL 80.0 - 94.0 05/23/2018 [facility] HEMATOLOGY Plt Morph Normal (05/22/18 10:45 PM) 05/23/2018 [facility] HEMATOLOGY Lymphocytes 20.4 % 20.0 - 40.0 05/23/2018 [facility] HEMATOLOGY Monocytes 11.5 % 2.0 - 12.0 05/23/2018 [facility] HEMATOLOGY Segs 64.2 % 45.0 - 75.0 05/23/2018 [facility] HEMATOLOGY RBC Morph Normal (05/22/18 10:45 PM) 05/23/2018 [facility] HEMATOLOGY Basophils 0.7 % 0.0 - 1.0 05/23/2018 [facility] HEMATOLOGY Neutrophils # 6.1 K/CMM 1.5 - 8.1 05/23/2018 [facility] HEMATOLOGY Lymphocytes # 1.9 K/CMM 1.0 - 5.5 05/23/2018 [facility] HEMATOLOGY Eosinophils 3.2 % 0.0 - 4.0 05/23/2018 [facility] HEMATOLOGY Eosinophils # 0.3 K/CMM 0.0 - 0.5 05/23/2018 [facility] HEMATOLOGY Basophils # 0.1 K/CMM 0.0 - 0.2 05/23/2018 [facility] HEMATOLOGY Monocytes # 1.1 K/CMM 0.0 - 0.8 05/23/2018 [facility] Brain wo contrast CT Brain wo contrast CT EXAM: CT BRAIN WITHOUT CONTRAST DATE: 05/22/2018 21:37 INDICATION: - headache COMPARISON: Brain MRI dated 05/18/2018. Brain CT dated 05/18/2018. TECHNIQUE: Routine axial CT images of the brain were obtained. Reformatted images in the sagittal and coronal plane were included. IV contrast: None. DLP: 872 mGy-cm FINDINGS: Status post resection of left frontal meningioma is again demonstrated. Hyperattenuation in the left cerebral convexity adjacent to the craniotomy, which may represent hemorrhage and/or granulation tissue is again demonstrated, with a tiny pockets of pneumocephalus. Encephalomalacia in the left frontal lobe is again demonstrated. Confluent microvascular ischemic changes in the periventricular and subcortical white matter are again identified. IMPRESSION: Expected evolutionary changes of the operative cavity in the left frontal convexity. Microvascular ischemic changes and volume loss. There is no adverse change. 05/22/2018 - - This report was dictated by a Swatch Maker/Fellow/Physician Skimmer. I have personally reviewed the images as well as the interpretation and agree with the findings. Read by: Siva Lu MD Resident/Fellow/Physician Skimmer: Siva Lu MD Dictated Date/time: 05/22/18 21:51 Electronically Signed by: Paz Barrow 05/22/18 22:53 FINAL REPORT [facility] CHEM PANEL POC Creatinine 1.6 mg/dL 0.5 - 1.4 05/18/2018 [facility] CHEM PANEL eGFR 41 mL/min/1.73m2 05/18/2018 Result Comment: The eGFR is calculated using the CKD-EPI formula. In most young, healthy individuals the eGFR will be >90 mL/min/1.73m2. The eGFR declines with age. An eGFR of 60-89 may be normal in some populations, particularly the elderly, for whom the CKD-EPI formula has not been extensively validated. Use of the eGFR is not recommended in the following populations: Individuals with unstable creatinine concentrations, including patients and those with serious co-morbid conditions. Patients with extremes in muscle mass or diet. The data above are obtained from the National Kidney Disease Education Program (NKDEP) which additionally recommends that when the eGFR is used in patients with extremes of body mass index for purposes of drug dosing, the eGFR should be multiplied by the estimated BMI. [facility] Brain w contrast CT Brain w contrast CT EXAM: CT BRAIN WITH CONTRAST INDICATION: - Gamma Knife, malignant neoplasm COMPARISON: MRI brain of the same day TECHNIQUE: Routine axial CT images of the brain were obtained. DISCUSSION: Left frontal resection cavity is redemonstrated with associated extra dural fluid. IMPRESSION: Images are adequate for localization. 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 TECHNIQUE: Axial postcontrast 3-D T1 weighted imaging was acquired through the brain. IV contrast: 18 mL of MultiHance FINDINGS: Limited sequence was acquired for treatment planning. There are expected postoperative changes of left frontal craniotomy. A focal area of nodular enhancement is seen lining the left aspect of the anterior third of the superior sagittal sinus, in close relationship with the superior and medial aspect of the surgical cavity [series 201, image [id number]], measuring approximately 9 x 6 x 10 mm (CCxAPxT), likely representing a small focus of residual tumor. The degree of dural sinus invasion cannot be established in the present examination. There is generalized dilation of the supratentorial ventricular system, associated with proportional widening of the subarachnoid space, indicating diffuse cortical volume loss. There are confluent areas of the distal hyperintensity within the periventricular white matter, likely representing chronic microvascular ischemic changes. There are prominent perivascular spaces within the basal ganglia. The major intracranial flow voids are well preserved. IMPRESSION: 1. Small area of nodular enhancement along the superior and medial aspect of the surgical cavity, in close relationship with the superior sagittal sinus, likely representing a residual tumor 2. Images are adequate for treatment planning 05/18/2018 - - This report was dictated by a Swatch Maker/Fellow/Physician Skimmer. I have personally reviewed the images as well as the interpretation and agree with the findings. Read by: Ernesto Mcleod Resident/Fellow/Physician Skimmer: Ernesto Mcleod Dictated Date/time: 05/18/18 09:57 Electronically Signed by: Kendall Coleman MD 05/18/18 11:00 FINAL REPORT [facility] Elbow 3 views DX Elbow 3 views DX EXAM: XR LEFT ELBOW 3 VIEWS DATE: 04/19/2018 10:32 AM TOY DEPARTMENT MANAGER INDICATION: - Pain COMPARISON: None TECHNIQUE: AP, lateral and oblique radiographs of the elbow FINDINGS: No acute fracture or malalignment is identified. 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 There is no excessive joint fluid. No soft tissue abnormality is identified. IMPRESSION: No acute abnormality. 04/19/2018 - - Read by: So Kenyon MD Dictated Date/time: 04/19/18 13:41 Electronically Signed by: So Kenyon MD 04/19/18 13:41 FINAL REPORT [facility] Shoulder series DX Shoulder series DX EXAM: XR RIGHT SHOULDER 3 VIEWS DATE: 04/19/2018 10:32 AM TOY DEPARTMENT MANAGER INDICATION: - Pain COMPARISON: None TECHNIQUE: AP views in internal and external rotation, and an axillary view of the shoulder FINDINGS: Suboptimal images of the shoulder visualized showing osteoarthritis without definite acute abnormality. No acute fracture or malalignment is identified. No soft tissue abnormality is identified. IMPRESSION: No definite acute abnormality. 04/19/2018 - - Read by: So Kenyon MD Dictated Date/time: 04/19/18 13:39 Electronically Signed by: So Kenyon MD 04/19/18 13:41 FINAL REPORT [facility] Brain Stealth wo contrast CT Brain Stealth wo contrast CT EXAM: CT BRAIN WITHOUT CONTRAST -STEALTH LOCALIZATION. DATE: 04/19/2018 9:49 AM TOY DEPARTMENT MANAGER INDICATION: - prior to OR, left frontal convexity meningioma. COMPARISON: MRI brain with and without contrast 04/15/2018. TECHNIQUE: Noncontrast high-resolution images of the brain were obtained. Coronal and sagittal reformatted images are provided. IV contrast: None. FINDINGS: High-resolution CT images of the head are performed . Correlations made with prior contrast enhanced magnetic resonance imaging images. The 3.7 x 3.5 cm left anterior frontal convexity meningioma is unchanged in size. Associated mass effect on the left frontal lobe. Vasogenic edema is seen in the contiguous left frontal white matter. No midline shift. The ventricles are stable in size. Hypodensities in the supratentorial white matter likely represent chronic migraines hepatic change. The basal cisterns are patent. IMPRESSION: Images adequate for localization. Left anterior frontal convexity meningioma. 04/19/2018 - - Read by: Shilpi Goode MD Dictated Date/time: 04/19/18 14:27 Electronically Signed by: Shilpi Goode MD 04/19/18 14:32 FINAL REPORT [facility] Shoulder series DX Shoulder series DX EXAM: XR RIGHT SHOULDER 3 VIEWS DATE: 04/17/2018 at 0535 hours. INDICATION: - Arm pain COMPARISON: Chest radiograph 04/14/2018. TECHNIQUE: AP views in internal and external rotation, and an axillary view of the shoulder FINDINGS: No acute fracture or malalignment is identified. Mild degenerative changes of the acromioclavicular joint. Cortical irregularity along the greater tuberosity visualized. No soft tissue abnormality is identified. IMPRESSION: Cortical irregularity along the greater tuberosity suggestive of rotator cuff pathology. No acute osseous abnormality. 04/17/2018 - - This report was dictated by a Swatch Maker/Fellow/Physician Skimmer. I have personally reviewed the images as well as the interpretation and agree with the findings. Read by: Bg Zavala MD Resident/Fellow/Physician Skimmer: Bg Zavala MD Dictated Date/time: 04/17/18 09:15 Electronically Signed by: So Kenyon MD 04/17/18 11:50 FINAL REPORT [facility] Pelvis AP DX Pelvis AP DX EXAM: XR PELVIS 1 VIEW DATE: 04/17/2018 at 0533 hours. INDICATION: - Pain COMPARISON: Lumbar spine radiograph 04/12/2011. TECHNIQUE: Frontal pelvis FINDINGS: No acute fracture or malalignment is identified. Degenerative changes are seen in the lower lumbar spine and hip joints. No soft tissue abnormality is identified. IMPRESSION: 1. No acute bony abnormality. 2. Degenerative changes in the lumbar spine and hip joints. 04/17/2018 - - This report was dictated by a Swatch Maker/Fellow/Physician Skimmer. I have personally reviewed the images as well as the interpretation and agree with the findings. Read by: Bg Zavala MD Resident/Fellow/Physician Skimmer: Bg Zavala MD Dictated Date/time: 04/17/18 09:12 Electronically Signed by: So Kenyon MD 04/17/18 09:15 FINAL REPORT [facility] Spine cervical wo contrast CT Spine cervical wo contrast CT EXAM: CT CERVICAL SPINE WITHOUT CONTRAST DATE: 04/17/2018 INDICATION: - Neck pain, R arm pain, neck rigidity COMPARISON: none TECHNIQUE: Volumetric CT acquisition of the cervical spine without contrast. Axial, sagittal and coronal reconstructions. IV contrast: None. DLP: 542 mGy-cm FINDINGS: Vertebral bodies: The craniocervical junction is normal. The height of the vertebral bodies is preserved. There is a subtle scoliotic curvature of cervical spine with the vertex toward the right. Benign-appearing radiolucent lesions and the base of the dens and in the body of C2 on the right side are identified, with a sclerotic margin. Disks, uncovertebral and facet joints: Narrowing of the intervertebral vertebral disc spaces with uncovertebral osteophytes is present at multiple levels. There is sclerosis of the vertebral bodies from C3 through C6. Cartilaginous nodes are identified at multiple levels. * C2-C3: The spinal canal and the neural foramina are patent. * C3-C4: There is narrowing of the left neural foramen secondary to uncovertebral and facet joint hypertrophy. * C4-C5: There is narrowing of the left neural foramen secondary to uncovertebral and facet joint hypertrophy. * C5-C6: There is mild narrowing of the right neural foramen and significant narrowing of the left neural foramen as a result of uncovertebral and facet joint hypertrophy. * C6-C7: The spinal canal and the neural foramina are patent. Neck soft tissues: Soft tissue calcifications posterior to the dens the region of the tectorial membrane are identified. The density of the spinal canal is otherwise unremarkable. The paraspinal soft tissues are normal. IMPRESSION: Degenerative changes of the disks, uncovertebral and facet joints, causing neural foraminal narrowing at multiple levels. Benign appearing radiolucent lesion in the body of C2 and the base of the dens, without clinical significance. 04/16/2018 - - Read by: Paz Barrow M Dictated Date/time: 04/17/18 09:15 Electronically Signed by: Paz Barrow 04/17/18 09:37 FINAL REPORT [facility] Brain w contrast MRI STEALTH Brain w contrast MRI STEALTH EXAM: MRI BRAIN WITH AND WITHOUT CONTRAST EXAM: MRI BRAIN WITH AND WITHOUT CONTRAST, STEALTH PROTOCOL. DATE: 04/14/2018 INDICATION: - better characterization of meningioma COMPARISON: CT brain 04/14/2018. TECHNIQUE: Multiplanar, multisequence MRI of the brain with and without intravenous contrast. High resolution postcontrast images of the brain for the purposes of treatment planning using stealth protocol were included. IV contrast: 18 mL MultiHance. FINDINGS: Examination is limited by patient motion. There is is an avidly enhancing dural-based mass in the left anterior frontal convexity measuring 3.7 x 3.5 x 2.9 cm (TV X AP X CC). The lesion demonstrates diffusion restriction. No susceptibility artifact is identified within the lesion to suggest hemorrhagic changes or calcification. There is local mass effect on the brain parenchyma. Mild surrounding vasogenic edema. The lesion abuts the lateral margin of the superior longitudinal sinus anteriorly, without any changes in its lumen. T2/FLAIR hyperintensity in the supratentorial white matter compatible with chronic microangiopathic change. The ventricles are normal size and configuration. There is no acute chronic hemorrhagic change. The vascular structures enhance uneventfully. Air-fluid level is noted in the left maxillary sinus. The skull base is unremarkable. IMPRESSION: Left anterior frontal convexity meningioma measuring 3.7 x 3.5 x 2.9 cm. Images appropriate for treatment planning. 04/15/2018 - - This report was dictated by a Swatch Maker/Fellow/Physician Skimmer. I have personally reviewed the images as well as the interpretation and agree with the findings. Read by: Zohra Kaiser MD Resident/Fellow/Physician Skimmer: Zohra Kaiser MD Dictated Date/time: 04/15/18 08:16 Electronically Signed by: Paz Barrow 04/15/18 13:47 FINAL REPORT [facility] Brain w/wo contrast MRI Brain w/wo contrast MRI EXAM: MRI BRAIN WITH AND WITHOUT CONTRAST EXAM: MRI BRAIN WITH AND WITHOUT CONTRAST, STEALTH PROTOCOL. DATE: 04/14/2018 INDICATION: - better characterization of meningioma COMPARISON: CT brain 04/14/2018. TECHNIQUE: Multiplanar, multisequence MRI of the brain with and without intravenous contrast. High resolution postcontrast images of the brain for the purposes of treatment planning using stealth protocol were included. IV contrast: 18 mL MultiHance. FINDINGS: Examination is limited by patient motion. There is is an avidly enhancing dural-based mass in the left anterior frontal convexity measuring 3.7 x 3.5 x 2.9 cm (TV X AP X CC). The lesion demonstrates diffusion restriction. No susceptibility artifact is identified within the lesion to suggest hemorrhagic changes or calcification. There is local mass effect on the brain parenchyma. Mild surrounding vasogenic edema. The lesion abuts the lateral margin of the superior longitudinal sinus anteriorly, without any changes in its lumen. T2/FLAIR hyperintensity in the supratentorial white matter compatible with chronic microangiopathic change. The ventricles are normal size and configuration. There is no acute chronic hemorrhagic change. The vascular structures enhance uneventfully. Air-fluid level is noted in the left maxillary sinus. The skull base is unremarkable. IMPRESSION: Left anterior frontal convexity meningioma measuring 3.7 x 3.5 x 2.9 cm. Images appropriate for treatment planning. 04/14/2018 - - This report was dictated by a Swatch Maker/Fellow/Physician Skimmer. I have personally reviewed the images as well as the interpretation and agree with the findings. Read by: Zohra Kaiser MD Resident/Fellow/Physician Skimmer: Zohra Kaiser MD Dictated Date/time: 04/15/18 08:16 Electronically Signed by: Paz Barrow 04/15/18 13:47 FINAL REPORT [facility] Chest 1view DX Chest 1view DX EXAM: XR CHEST 1 VIEW DATE: 04/14/2018 11:26 TOY DEPARTMENT MANAGER INDICATION: - altered mental status COMPARISON: None TECHNIQUE: AP chest FINDINGS: Lines and tubes: Electrocardiogram leads and electrodes overlie portions of the chest. Lungs and pleura: Thin linear opacity seen peripherally in the left lung base. Lungs otherwise clear. Heart and mediastinum: The heart size is normal for technique. The mediastinal contours are normal. Bones: No acute bony abnormality is identified. IMPRESSION: Mild left lower lobe atelectasis. 04/14/2018 - - Read by: Robert Tovar MD Dictated Date/time: 04/14/18 12:45 Electronically Signed by: Robert Tovar MD 04/14/18 12:46 FINAL REPORT [facility] Brain wo contrast CT Brain wo contrast CT EXAM: CT BRAIN WITHOUT CONTRAST DATE: 04/14/2018 11:23 TOY DEPARTMENT MANAGER INDICATION: "seizure, concern for ICH" COMPARISON: None. TECHNIQUE: Axial CT images of the brain were obtained. Sagittal and coronal reformats. IV contrast: None. DLP: 897 mGy-cm FINDINGS: A 2.5 x 3.8 cm x 4.1 extra-axial mass associated with CSF cleft is identified at the left frontal convexity. The mass is associated with an area of hyperostosis of the skull (series 5B image 22). There is associated mass effect on the underlying left frontal lobe, with a mild amount of associated vasogenic edema. No herniation. No acute intracranial hemorrhage or extra-axial collection. Severe confluent white matter hypoattenuation is nonspecific but most likely represents chronic microvascular ischemic changes. Moderate diffuse parenchymal volume loss. . There is no fracture of the skull, skull base, or visible facial bones. IMPRESSION: 1. Left frontal convexity 2.5 x 3.8 x 4.1 cm extra-axial mass with hyperostosis of the left frontal bone is most likely a meningioma. There is associated mass effect on the adjacent left frontal lobe with a mild amount of left frontal vasogenic edema. Suggest further characterization with magnetic resonance imaging of the brain with and without contrast. 2. No acute hemorrhage or infarction. 3. Advanced chronic microvascular ischemic changes observed 04/14/2018 - - This report was dictated by a Swatch Maker/Fellow/Physician Skimmer. I have personally reviewed the images as well as the interpretation and agree with the findings. Read by: Shady De Leon MD Resident/Fellow/Physician Skimmer: Shady De Leon MD Dictated Date/time: 04/14/18 11:54 Electronically Signed by: Thania Lawson MD 04/14/18 12:35 FINAL REPORT [facility] Chest 2 views DX Chest 2 views DX EXAMINATION: Chest, 2 view, frontal and lateral HISTORY: J45.909 Unspecified asthma, uncomplicated; cough FINDINGS: Frontal and lateral views of the chest are submitted for interpretation and compared to 09/12/2015. The cardiomediastinal silhouette is within normal limits. There are no pleural effusions or pneumothorax. The lungs are clear without focal pneumonic consolidation or pulmonary edema. There is multilevel degenerative disc disease of the lower thoracic spine. IMPRESSION: 1. No radiographic evidence of acute cardiopulmonary disease. 05/01/2016 - - Read by: Adithya Tucker MD Dictated Date/time: 05/01/16 09:28 Electronically Signed by: Adithya Tucker MD 05/01/16 09:36 FINAL REPORT [facility] CHEM PANEL eGFR 58 mL/min/1.73m2 12/14/2015 Result Comment: The eGFR is calculated using the CKD-EPI formula. In most young, healthy individuals the eGFR will be >90 mL/min/1.73m2. The eGFR declines with age. An eGFR of 60-89 may be normal in some populations, particularly the elderly, for whom the CKD-EPI formula has not been extensively validated. Use of the eGFR is not recommended in the following populations: Individuals with unstable creatinine concentrations, including patients and those with serious co-morbid conditions. Patients with extremes in muscle mass or diet. The data above are obtained from the National Kidney Disease Education Program (NKDEP) which additionally recommends that when the eGFR is used in patients with extremes of body mass index for purposes of drug dosing, the eGFR should be multiplied by the estimated BMI. [facility] CHEM PANEL AGAP 8.5 meq/L 10.0 - 20.0 12/14/2015 [facility] CHEM PANEL Calcium Lvl 8.3 mg/dL 8.5 - 10.5 12/14/2015 [facility] CHEM PANEL BUN 28 mg/dL 7 - 22 12/14/2015 [facility] CHEM PANEL Chloride Lvl 104 meq/L 95 - 109 12/14/2015 [facility] PANEL Glucose Lvl 123 mg/dL 70 - 99 12/14/2015 [facility] PANEL CO2 32 meq/L 24 - 32 12/14/2015 [facility] PANEL Sodium Lvl 140 meq/L 135 - 145 12/14/[address] [facility] [place] Potassium Lvl 4.5 meq/L 3.5 - 5.1 12/14/[address] [facility] [place] Creatinine Lvl 1.22 mg/dL 0.50 - 1.40 12/14/2015 [facility] Chest 2 views DX Chest 2 views DX CHEST PA AND LATERAL History: 74-year-old male with bronchitis. Comparison: 05/12/2015 Findings: Lungs: The lungs are partial expanded with bilateral lower lung zone subsegmental atelectasis. No distinct consolidation or infiltrate noted. Pleura: No pleural effusion. Mediastinum and dontrell: Perihilar vessels are prominent. Small hiatal hernia suspected. Heart size: Normal. Skeletal: Osteoarthritic changes of shoulders and throughout spine. IMPRESSION: There is no acute cardio pulmonary abnormality. 09/12/2015 - - Read by: Jesus Morris MD Dictated Date/time: 09/12/15 09:45 Electronically Signed by: Jesus Morris 09/12/15 09:47 FINAL REPORT [facility] URINE AND STOOL UA Urobilinogen <=1.0 mg/dL 0.1 - 1.0 07/14/2014 [facility] URINE AND STOOL UA Sq Epi Occasional /LPF Few /LPF 07/14/2014 [facility] URINE AND STOOL UA Ketones Negative mg/dL Negative mg/dL 07/14/2014 [facility] URINE AND STOOL UA Bili Negative *NA* (07/14/14 9:13 AM) Negative 07/14/2014 [facility] URINE AND STOOL UA WBC null 0 - 5 07/14/2014 [facility] URINE AND STOOL UA Leuk Est Large *ABN* (07/14/14 9:13 AM) Negative 07/14/2014 [facility] URINE AND STOOL UA Blood Small *ABN* (07/14/14 9:13 AM) Negative 07/14/2014 [facility] URINE AND STOOL UA Nitrite Negative (07/14/14 9:13 AM) Negative 07/14/2014 [facility] URINE AND STOOL UA Turbidity Marked *ABN* (07/14/14 9:13 AM) Clear 07/14/2014 [facility] URINE AND STOOL UA Protein Negative mg/dL Negative mg/dL 07/14/2014 [facility] URINE AND STOOL UA Glucose Negative mg/dL Negative mg/dL 07/14/2014 [facility] URINE AND STOOL UA Spec Grav 1.008 <=1.030 07/14/2014 [facility] URINE AND STOOL UA pH 5.0 5.0 - 8.0 07/14/2014 [facility] URINE AND STOOL UA RBC 11 /HPF 0 - 2 07/14/2014 [facility] URINE AND STOOL UA Bacteria Few /HPF None Seen /HPF 07/14/2014 [facility] URINE AND STOOL UA Color Yellow *NA* (07/14/14 9:13 AM) Yellow 07/14/2014 [facility] CHEM PANEL eGFR 39 mL/min/1.73m2 07/14/2014 1Result Comment: The eGFR is calculated using the CKD-EPI formula. In most young, healthy individuals the eGFR will be >90 mL/min/1.73m2. The eGFR declines with age. An eGFR of 60-89 may be normal in some populations, particularly the elderly, for whom the CKD-EPI formula has not been extensively validated. Use of the eGFR is not recommended in the following populations: Individuals with unstable creatinine concentrations, including patients and those with serious co-morbid conditions. Patients with extremes in muscle mass or diet. The data above are obtained from the National Kidney Disease Education Program (NKDEP) which additionally recommends that when the eGFR is used in patients with extremes of body mass index for purposes of drug dosing, the eGFR should be multiplied by the estimated BMI. [facility] CHEM PANEL AST 32 unit/L 0 - 37 07/14/2014 [facility] CHEM PANEL ALT 30 unit/L 0 - 65 07/14/2014 [facility] CHEM PANEL Albumin Lvl 3.4 g/dL 3.5 - 5.0 07/14/2014 [facility] CHEM PANEL Alk Phos 104 unit/L 39 - 136 07/14/2014 [facility] CHEM PANEL Bili Total 0.3 mg/dL 0.2 - 1.3 07/14/2014 [facility] CHEM PANEL Calcium Lvl 8.5 mg/dL 8.5 - 10.5 07/14/2014 [facility] CHEM PANEL Creatinine Lvl 1.7 mg/dL 0.5 - 1.4 07/14/2014 [facility] CHEM PANEL CO2 24 meq/L 24 - 32 07/14/2014 [facility] CHEM PANEL Total Protein 7.9 g/dL 6.4 - 8.4 07/14/2014 [facility] CHEM PANEL Glucose Lvl 101 mg/dL 70 - 99 07/14/2014 2Interpretive Data: Adult reference range values reflect the clinical guidelines of the [place] [employer]. [facility] CHEM PANEL BUN 34 mg/dL 7 - 22 07/14/2014 [facility] CHEM PANEL Sodium Lvl 134 meq/L 135 - 145 07/14/2014 [facility] CHEM PANEL Potassium Lvl 4.6 meq/L 3.5 - 5.1 07/14/2014 [facility] CHEM PANEL Chloride Lvl 100 meq/L 95 - 109 07/14/2014 [facility] CHEM PANEL B/C Ratio 20 6 - 25 07/14/2014 [facility] CHEM PANEL AGAP 14.6 meq/L 10.0 - 20.0 07/14/2014 [facility] CHEM PANEL Globulin 4.5 g/dL 2.0 - 4.0 07/14/2014 [facility] CHEM PANEL A/G Ratio 0.8 0.7 - 1.6 07/14/2014 [facility] Lymphocytes # 1.8 K/CMM 1.0 - 5.5 07/14/2014 [facility] Segs-Bands # 5.4 K/CMM 1.5 - 8.1 07/14/2014 [facility] Monocytes # 1.0 K/CMM 0.0 - 0.8 07/14/2014 [facility] Eosinophils # 0.3 K/CMM 0.0 - 0.5 07/14/2014 [facility] Basophils # 0.1 K/CMM 0.0 - 0.2 07/14/2014 [facility] Lymphocytes 21.6 % 20.0 - 40.0 07/14/2014 [facility] Monocytes 11.4 % 2.0 - 12.0 07/14/2014 [facility] Basophils 0.8 % 0.0 - 1.0 07/14/2014 [facility] Segs 62.9 % 45.0 - 75.0 07/14/2014 [facility] Eosinophils 3.3 % 0.0 - 4.0 07/14/2014 [facility] INR 1.01 0.85 - 1.17 07/14/2014 3Interpretive Data: RECOMMENDED RANGES FOR PROTIME INR: 2.0-3.0 for most medical and surgical thromboembolic states. 2.5-3.5 for artificial heart valves and recurrent embolism. INR SHOULD BE USED ONLY FOR PATIENTS ON STABLE ANTICOAGULANT THERAPY. [facility] PT 13.3 s 12.0 - 14.7 07/14/2014 [facility] PTT 21.7 s 22.9 - 35.8 07/14/2014 4Interpretive Data: Heparin Therapeutic Range: 57 - 92 Seconds [facility] MCHC 33.5 g/dL 32.0 - 36.0 07/14/2014 [facility] RDW 13.6 % 11.5 - 14.5 07/14/2014 [facility] MCV 95.8 fL 80.0 - 94.0 07/14/2014 [facility] MCH 32.1 pg 27.0 - 31.0 07/14/2014 [facility] Hgb 13.2 g/dL 14.0 - 18.0 07/14/2014 [facility] Hct 39.3 % 42.0 - 54.0 07/14/2014 [facility] WBC 8.5 K/CMM 3.7 - 10.4 07/14/2014 [facility] HEMATOLOGY RBC 4.10 M/CMM 4.70 - 6.10 07/14/2014 [facility] HEMATOLOGY MPV 7.6 fL 7.4 - 10.4 07/14/2014 [facility] HEMATOLOGY Platelet 216 K/CMM 133 - 450 07/14/2014 [facility] ELECTROLYTES Potassium Lvl 4.6 meq/L 3.5 - 5.1 05/19/2014 [facility] ELECTROLYTES Chloride Lvl 101 meq/L 95 - 109 05/19/2014 [facility] ELECTROLYTES Sodium Lvl 136 meq/L 135 - 145 05/19/2014 [facility] ELECTROLYTES eGFR 67 mL/min/1.73m2 05/19/2014 1Result Comment: The eGFR is calculated using the CKD-EPI formula. In most young, healthy individuals the eGFR will be >90 mL/min/1.73m2. The eGFR declines with age. An eGFR of 60-89 may be normal in some populations, particularly the elderly, for whom the CKD-EPI formula has not been extensively validated. Use of the eGFR is not recommended in the following populations: Individuals with unstable creatinine concentrations, including patients and those with serious co-morbid conditions. Patients with extremes in muscle mass or diet. The data above are obtained from the National Kidney Disease Education Program (NKDEP) which additionally recommends that when the eGFR is used in patients with extremes of body mass index for purposes of drug dosing, the eGFR should be multiplied by the estimated BMI. [facility] ELECTROLYTES CO2 27 meq/L 24 - 32 05/19/2014 [facility] ELECTROLYTES Calcium Lvl 9.2 mg/dL 8.5 - 10.5 05/19/2014 [facility] ELECTROLYTES BUN 29 mg/dL 7 - 22 05/19/2014 [facility] ELECTROLYTES Glucose Lvl 117 mg/dL 70 - 99 05/19/2014 4Interpretive Data: Adult reference range values reflect the clinical guidelines of the [place] [employer]. [facility] ELECTROLYTES Creatinine Lvl 1.1 mg/dL 0.5 - 1.4 05/19/2014 [facility] ELECTROLYTES AGAP 12.6 meq/L 10.0 - 20.0 05/19/2014 [facility] RBC 4.24 M/CMM 4.70 - 6.10 05/19/2014 [facility] HEMATOLOGY WBC 10.6 K/CMM 3.7 - 10.4 05/19/2014 [facility] Hgb 13.9 g/dL 14.0 - 18.0 05/19/2014 [facility] MCHC 33.8 g/dL 32.0 - 36.0 05/19/2014 [facility] MCH 32.8 pg 27.0 - 31.0 05/19/2014 [facility] RDW 12.9 % 11.5 - 14.5 05/19/2014 [facility] Platelet 247 K/CMM 133 - 450 05/19/2014 [facility] MPV 7.8 fL 7.4 - 10.4 05/19/2014 [facility] MCV 97.0 fL 80.0 - 94.0 05/19/2014 [facility] Hct 41.1 % 42.0 - 54.0 05/19/2014 [facility] ELECTROLYTES AGAP 12.3 meq/L 10.0 - 20.0 05/18/2014 [facility] ELECTROLYTES eGFR 60 mL/min/1.73m2 05/18/2014 2Result Comment: The eGFR is calculated using the CKD-EPI formula. In most young, healthy individuals the eGFR will be >90 mL/min/1.73m2. The eGFR declines with age. An eGFR of 60-89 may be normal in some populations, particularly the elderly, for whom the CKD-EPI formula has not been extensively validated. Use of the eGFR is not recommended in the following populations: Individuals with unstable creatinine concentrations, including patients and those with serious co-morbid conditions. Patients with extremes in muscle mass or diet. The data above are obtained from the National Kidney Disease Education Program (NKDEP) which additionally recommends that when the eGFR is used in patients with extremes of body mass index for purposes of drug dosing, the eGFR should be multiplied by the estimated BMI. [facility] ELECTROLYTES Creatinine Lvl 1.2 mg/dL 0.5 - 1.4 05/18/2014 [facility] ELECTROLYTES BUN 31 mg/dL 7 - 22 05/18/2014 [facility] ELECTROLYTES Glucose Lvl 106 mg/dL 70 - 99 05/18/2014 5Interpretive Data: Adult reference range values reflect the clinical guidelines of the [place] [employer]. [facility] ELECTROLYTES CO2 27 meq/L 24 - 32 05/18/2014 [facility] ELECTROLYTES Calcium Lvl 8.7 mg/dL 8.5 - 10.5 05/18/2014 [facility] ELECTROLYTES Potassium Lvl 4.3 meq/L 3.5 - 5.1 05/18/2014 [facility] ELECTROLYTES Chloride Lvl 102 meq/L 95 - 109 05/18/2014 [facility] ELECTROLYTES Sodium Lvl 137 meq/L 135 - 145 05/18/2014 [facility] HEMATOLOGY MCH 32.8 pg 27.0 - 31.0 05/18/2014 [facility] HEMATOLOGY Hgb 12.8 g/dL 14.0 - 18.0 05/18/2014 [facility] HEMATOLOGY MCV 97.3 fL 80.0 - 94.0 05/18/2014 [facility] HEMATOLOGY RBC 3.89 M/CMM 4.70 - 6.10 05/18/2014 [facility] HEMATOLOGY Hct 37.9 % 42.0 - 54.0 05/18/2014 [facility] HEMATOLOGY WBC 9.3 K/CMM 3.7 - 10.4 05/18/2014 [facility] HEMATOLOGY Platelet 210 K/CMM 133 - 450 05/18/2014 [facility] HEMATOLOGY MPV 7.9 fL 7.4 - 10.4 05/18/2014 [facility] HEMATOLOGY MCHC 33.7 g/dL 32.0 - 36.0 05/18/2014 [facility] HEMATOLOGY RDW 12.8 % 11.5 - 14.5 05/18/2014 [facility] CHEM PANEL Procalcitonin Lvl 0.19 ng/mL 0.00 - 0.10 05/15/2014 [facility] URINE AND STOOL UA Urobilinogen <=1.0 mg/dL 0.1 - 1.0 05/15/2014 [facility] URINE AND STOOL UA Protein 30 mg/dL Negative mg/dL 05/15/2014 [facility] URINE AND STOOL UA Glucose Negative mg/dL Negative mg/dL 05/15/2014 [facility] URINE AND STOOL UA Bili Negative *NA* (05/15/14 4:30 PM) Negative 05/15/2014 [facility] URINE AND STOOL UA Ketones Negative mg/dL Negative mg/dL 05/15/2014 [facility] URINE AND STOOL UA Blood Moderate *ABN* (05/15/14 4:30 PM) Negative 05/15/2014 [facility] URINE AND STOOL UA Nitrite Negative (05/15/14 4:30 PM) Negative 05/15/2014 [facility] URINE AND STOOL UA Leuk Est Large *ABN* (05/15/14 4:30 PM) Negative 05/15/2014 [facility] URINE AND STOOL UA RBC 93 /HPF 0 - 2 05/15/2014 [facility] URINE AND STOOL UA WBC null 0 - 5 05/15/2014 [facility] URINE AND STOOL UA Bacteria Many /HPF None Seen /HPF 05/15/2014 [facility] URINE AND STOOL UA Sq Epi None Seen 05/15/2014 [facility] URINE AND STOOL UA Color Yellow *NA* (05/15/14 4:30 PM) Yellow 05/15/2014 [facility] URINE AND STOOL UA Spec Grav 1.015 <=1.030 05/15/2014 [facility] URINE AND STOOL UA pH 5.0 5.0 - 8.0 05/15/2014 [facility] URINE AND STOOL UA Turbidity Marked *ABN* (05/15/14 4:30 PM) Clear 05/15/2014 [facility] CHEM PANEL eGFR 55 mL/min/1.73m2 05/15/2014 3Result Comment: The eGFR is calculated using the CKD-EPI formula. In most young, healthy individuals the eGFR will be >90 mL/min/1.73m2. The eGFR declines with age. An eGFR of 60-89 may be normal in some populations, particularly the elderly, for whom the CKD-EPI formula has not been extensively validated. Use of the eGFR is not recommended in the following populations: Individuals with unstable creatinine concentrations, including patients and those with serious co-morbid conditions. Patients with extremes in muscle mass or diet. The data above are obtained from the National Kidney Disease Education Program (NKDEP) which additionally recommends that when the eGFR is used in patients with extremes of body mass index for purposes of drug dosing, the eGFR should be multiplied by the estimated BMI. [facility] CHEM PANEL CO2 26 meq/L 24 - 32 05/15/2014 [facility] CHEM PANEL Creatinine Lvl 1.3 mg/dL 0.5 - 1.4 05/15/2014 [facility] CHEM PANEL Calcium Lvl 8.9 mg/dL 8.5 - 10.5 05/15/2014 [facility] CHEM PANEL Glucose Lvl 133 mg/dL 70 - 99 05/15/2014 6Interpretive Data: Adult reference range values reflect the clinical guidelines of the [place] [employer]. [facility] CHEM PANEL BUN 29 mg/dL 7 - 22 05/15/2014 [facility] CHEM PANEL Sodium Lvl 137 meq/L 135 - 145 05/15/2014 [facility] CHEM PANEL Chloride Lvl 101 meq/L 95 - 109 05/15/2014 [facility] CHEM PANEL Potassium Lvl 4.3 meq/L 3.5 - 5.1 05/15/2014 [facility] CHEM PANEL AGAP 14.3 meq/L 10.0 - 20.0 05/15/2014 [facility] HEMATOLOGY Eosinophils # 0.5 K/CMM 0.0 - 0.5 05/15/2014 [facility] HEMATOLOGY Monocytes # 1.2 K/CMM 0.0 - 0.8 05/15/2014 [facility] HEMATOLOGY Lymphocytes # 1.4 K/CMM 1.0 - 5.5 05/15/2014 [facility] HEMATOLOGY Segs-Bands # 4.8 K/CMM 1.5 - 8.1 05/15/2014 [facility] HEMATOLOGY Basophils 0.5 % 0.0 - 1.0 05/15/2014 [facility] HEMATOLOGY Monocytes 15.4 % 2.0 - 12.0 05/15/2014 [facility] HEMATOLOGY Eosinophils 6.2 % 0.0 - 4.0 05/15/2014 [facility] HEMATOLOGY Segs 60.6 % 45.0 - 75.0 05/15/2014 [facility] HEMATOLOGY Lymphocytes 17.3 % 20.0 - 40.0 05/15/2014 [facility] HEMATOLOGY MCV 97.2 fL 80.0 - 94.0 05/15/2014 [facility] HEMATOLOGY MCH 33.0 pg 27.0 - 31.0 05/15/2014 [facility] HEMATOLOGY Hct 37.4 % 42.0 - 54.0 05/15/2014 [facility] HEMATOLOGY Hgb 12.7 g/dL 14.0 - 18.0 05/15/2014 [facility] HEMATOLOGY WBC 7.9 K/CMM 3.7 - 10.4 05/15/2014 [facility] HEMATOLOGY RBC 3.85 M/CMM 4.70 - 6.10 05/15/2014 [facility] HEMATOLOGY Platelet 186 K/CMM 133 - 450 05/15/2014 [facility] HEMATOLOGY MPV 8.5 fL 7.4 - 10.4 05/15/2014 [facility] HEMATOLOGY MCHC 33.9 g/dL 32.0 - 36.0 05/15/2014 [facility] HEMATOLOGY RDW 12.8 % 11.5 - 14.5 05/15/2014 [facility] LIPIDS VLDL 21 05/13/2014 [facility] LIPIDS LDL (Calculated) 68 mg/dL <=99 mg/dL 05/13/2014 [facility] LIPIDS Trig 106 mg/dL <=149 mg/dL 05/13/2014 [facility] LIPIDS Chol 122 mg/dL <=199 mg/dL 05/13/2014 [facility] LIPIDS CHD Risk 3.70 4.00 - 7.30 05/13/2014 [facility] LIPIDS HDL 33 mg/dL >=61 mg/dL 05/13/2014 [facility] CARDIAC ENZYMES Total CK 156 unit/L 12 - 191 05/12/2014 [facility] CARDIAC ENZYMES Troponin-I null 0.00 - 0.40 05/12/2014 [facility] CARDIAC ENZYMES CK MB Index 0.9 0.0 - 2.5 05/12/2014 [facility] CARDIAC ENZYMES CK MB 1.4 ng/mL 0.5 - 3.6 05/12/2014 [facility] CARDIAC ENZYMES Total CK 162 unit/L 12 - 191 05/12/2014 [facility] CARDIAC ENZYMES Troponin-I null 0.00 - 0.40 05/12/2014 [facility] CARDIAC ENZYMES CK MB Index 1.2 0.0 - 2.5 05/12/2014 [facility] CARDIAC ENZYMES CK MB 2.0 ng/mL 0.5 - 3.6 05/12/2014 [facility] CARDIAC ENZYMES CK MB Index 1.6 0.0 - 2.5 05/12/2014 [facility] CARDIAC ENZYMES CK MB 2.8 ng/mL 0.5 - 3.6 05/12/2014 [facility] CARDIAC ENZYMES Total CK 178 unit/L 12 - 191 05/12/2014 [facility] CARDIAC ENZYMES Troponin-I null 0.00 - 0.40 05/12/2014 [facility] CARDIAC ENZYMES BNP 95 pg/mL <=100 pg/mL 05/12/2014 7Interpretive Data: Elevated results are in line with increasing severity of congestive heart failure. Minor elevations between 100 and 300 may be seen with Myocardial Ischemia, Sodium retaining drugs, and compensated/treated heart failure. [facility] CHEM PANEL Bili Total 0.3 mg/dL 0.2 - 1.3 05/12/2014 [facility] CHEM PANEL A/G Ratio 0.9 0.7 - 1.6 05/12/2014 [facility] CHEM PANEL Globulin 4.1 g/dL 2.0 - 4.0 05/12/2014 [facility] CHEM PANEL B/C Ratio 24 6 - 25 05/12/2014 [facility] CHEM PANEL Total Protein 7.6 g/dL 6.4 - 8.4 05/12/2014 [facility] CHEM PANEL Alk Phos 113 unit/L 39 - 136 05/12/2014 [facility] CHEM PANEL AST 25 unit/L 0 - 37 05/12/2014 [facility] CHEM PANEL Albumin Lvl 3.5 g/dL 3.5 - 5.0 05/12/2014 [facility] CHEM PANEL ALT 29 unit/L 0 - 65 05/12/2014 [facility] HEMATOLOGY Basophils # 0.1 K/CMM 0.0 - 0.2 05/12/2014 [facility] HEMATOLOGY Segs 87.3 % 45.0 - 75.0 05/12/2014 [facility] HEMATOLOGY Lymphocytes 4.3 % 20.0 - 40.0 05/12/2014 [facility] HEMATOLOGY Segs-Bands # 13.5 K/CMM 1.5 - 8.1 05/12/2014 [facility] HEMATOLOGY Lymphocytes # 0.7 K/CMM 1.0 - 5.5 05/12/2014 [facility] HEMATOLOGY Monocytes # 1.2 K/CMM 0.0 - 0.8 05/12/2014 [facility] HEMATOLOGY Eosinophils 0.3 % 0.0 - 4.0 05/12/2014 [facility] HEMATOLOGY Monocytes 7.7 % 2.0 - 12.0 05/12/2014 [facility] HEMATOLOGY Basophils 0.4 % 0.0 - 1.0 05/12/2014 [facility] HEMATOLOGY D-Dimer 1.50 ug/mL FEU 05/12/2014 8Interpretive Data: In DIC, quantitative D-Dimer is generally greater than 0.66 ug/mL FEU. Values of quantitative D-Dimer less than 0.40 ug/mL FEU have been reported to be associated with a low probability of deep vein thrombosis/pulmonary embolism. This test alone should not be used to rule out DVT/PE. [facility] URINE AND STOOL UA Urobilinogen <=1.0 mg/dL 0.1 - 1.0 05/12/2014 [facility] URINE AND STOOL UA Color Ltyellow 05/12/2014 [facility] URINE AND STOOL UA Sq Epi None Seen 05/12/2014 [facility] URINE AND STOOL UA Turbidity Marked *ABN* (05/12/14 1:15 AM) Clear 05/12/2014 [facility] URINE AND STOOL UA pH 5.0 5.0 - 8.0 05/12/2014 [facility] URINE AND STOOL UA Spec Grav 1.017 <=1.030 05/12/2014 [facility] URINE AND STOOL UA Glucose Negative mg/dL Negative mg/dL 05/12/2014 [facility] URINE AND STOOL UA Protein 100 mg/dL Negative mg/dL 05/12/2014 [facility] URINE AND STOOL UA Blood Moderate *ABN* (05/12/14 1:15 AM) Negative 05/12/2014 [facility] URINE AND STOOL UA Leuk Est Large *ABN* (05/12/14 1:15 AM) Negative 05/12/2014 [facility] URINE AND STOOL UA Nitrite Negative (05/12/14 1:15 AM) Negative 05/12/2014 [facility] URINE AND STOOL UA WBC null 0 - 5 05/12/2014 [facility] URINE AND STOOL UA RBC 29 /HPF 0 - 2 05/12/2014 [facility] URINE AND STOOL UA Mucus Few /LPF None Seen /LPF 05/12/2014 [facility] URINE AND STOOL UA Bili Negative *NA* (05/12/14 1:15 AM) Negative 05/12/2014 [facility] URINE AND STOOL UA Ketones Negative mg/dL Negative mg/dL 05/12/2014 [facility] URINE AND STOOL UA Bacteria Many /HPF None Seen /HPF 05/12/2014 [facility] VIRAL - SEROLOGY Influ A Negative (05/12/14 1:15 AM) Negative 05/12/2014 [facility] VIRAL - SEROLOGY Influ B Negative 9 (05/12/14 1:15 AM) Negative 05/12/2014 9Interpretive Data: Influenza A&B Antigen: Due to the low sensitivity of this test a negative result does not exclude influenza virus infection. A diagnosis of influenza should be considered based on a patient's clinical presentation and empiric antiviral treatment should be considered, if indicated. If more conclusive testing is desired, follow-up confirmatory testing with either viral culture or PCR is warranted. [facility] Microbiology Culture: Blood 06/07/2012 [facility] Microbiology Culture: Blood 06/07/2012 [facility] CHEMISTRY CK MB Index 0.6 0.0 - 2.5 06/07/2012 Normal [facility] CHEMISTRY Lactic Acid Lvl 1.3 mMol/L 0.5 - 2.2 06/07/2012 Normal [facility] CHEMISTRY Total CK 165 unit/L 12 - 191 06/07/2012 Normal [facility] CHEMISTRY BNP 83 pg/mL <=100 06/07/2012 Normal 3Interpretive Data: Elevated results are in line with increasing severity of congestive heart failure. Minor elevations between 100 and 300 may be seen with Myocardial Ischemia, Sodium retaining drugs, and compensated/treated heart failure. [facility] CHEMISTRY eGFR 55 mL/min/1.73m2 06/07/2012 NA 1Result Comment: The eGFR is calculated using the CKD-EPI formula. In most young, healthy individuals the eGFR will be >90 mL/min/1.73m2. The eGFR declines with age. An eGFR of 60-89 may be normal in some populations, particularly the elderly, for whom the CKD-EPI formula has not been extensively validated. Use of the eGFR is not recommended in the following populations: Individuals with unstable creatinine concentrations, including patients and those with serious co-morbid conditions. Patients with extremes in muscle mass or diet. The data above are obtained from the National Kidney Disease Education Program (NKDEP) which additionally recommends that when the eGFR is used in patients with extremes of body mass index for purposes of drug dosing, the eGFR should be multiplied by the estimated BMI. [facility] CHEMISTRY Glucose Lvl 127 mg/dL 70 - 99 06/07/2012 [place] 2Interpretive Data: Adult reference range values reflect the clinical guidelines of the [place] [employer]. [facility] CHEMISTRY B/C Ratio 16 6 - 25 06/07/2012 Normal [facility] CHEMISTRY Albumin Lvl 3.2 g/dL 3.5 - 5.0 06/07/2012 LOW [facility] CHEMISTRY AGAP 15.1 meq/L 10.0 - 20.0 06/07/2012 Normal [facility] CHEMISTRY CO2 27 meq/L 24 - 32 06/07/2012 Normal [facility] CHEMISTRY Calcium Lvl 8.5 mg/dL 8.5 - 10.5 06/07/2012 Normal [facility] CHEMISTRY Chloride Lvl 104 meq/L 95 - 109 06/07/2012 Normal [facility] CHEMISTRY Creatinine Lvl 1.3 mg/dL 0.5 - 1.4 06/07/2012 Normal [facility] CHEMISTRY Potassium Lvl 4.1 meq/L 3.5 - 5.1 06/07/2012 Normal [facility] CHEMISTRY BUN 21 mg/dL 7 - 22 06/07/2012 Normal [facility] CHEMISTRY Sodium Lvl 142 meq/L 135 - 145 06/07/2012 Normal [facility] CHEMISTRY Globulin 4.6 g/dL 2.0 - 4.0 06/07/2012 HI [facility] CHEMISTRY A/G Ratio 0.7 0.7 - 1.6 06/07/2012 Normal [facility] CHEMISTRY Total Protein 7.8 g/dL 6.4 - 8.4 06/07/2012 Normal [facility] CHEMISTRY ALT 20 unit/L 0 - 65 06/07/2012 Normal [facility] CHEMISTRY Bili Total 0.5 mg/dL 0.2 - 1.3 06/07/2012 Normal [facility] CHEMISTRY Alk Phos 91 unit/L 39 - 136 06/07/2012 Normal [facility] CHEMISTRY AST 18 unit/L 0 - 37 06/07/2012 Normal [facility] CHEMISTRY CK MB 1.0 ng/mL 0.5 - 3.6 06/07/2012 Normal [facility] CHEMISTRY Troponin-I null 0.00 - 0.40 06/07/2012 Normal [facility] HEMATOLOGY Lymphocytes # 1.9 K/CMM 1.0 - 5.5 06/07/2012 Normal [facility] HEMATOLOGY Monocytes # 2.2 K/CMM 0.0 - 0.8 06/07/2012 HI [facility] HEMATOLOGY Eosinophils # 0.3 K/CMM 0.0 - 0.5 06/07/2012 Normal [facility] HEMATOLOGY Basophils # 0.0 K/CMM 0.0 - 0.2 06/07/2012 Normal [facility] HEMATOLOGY Segs-Bands # 10.3 K/CMM 1.5 - 8.1 06/07/2012 HI [facility] HEMATOLOGY Segs 66.0 % 45.0 - 75.0 06/07/2012 Normal [facility] HEMATOLOGY Bands 4.0 % 0.0 - 11.0 06/07/2012 Normal [facility] HEMATOLOGY Basophils 0.0 % 0.0 - 1.0 06/07/2012 Normal [facility] HEMATOLOGY Atypical Lymphs 0.0 % <=0.0 06/07/2012 Normal [facility] HEMATOLOGY Lymphocytes 13.0 % 20.0 - 40.0 06/07/2012 LOW [facility] HEMATOLOGY Eosinophils 2.0 % 0.0 - 4.0 06/07/2012 Normal [facility] HEMATOLOGY Monocytes 15.0 % 2.0 - 12.0 06/07/2012 HI [facility] HEMATOLOGY INR 1.09 0.85 - 1.17 06/07/2012 Normal 4Interpretive Data: RECOMMENDED RANGES FOR PROTIME INR: 2.0-3.0 for most medical and surgical thromboembolic states. 2.5-3.5 for artificial heart valves and recurrent embolism. INR SHOULD BE USED ONLY FOR PATIENTS ON STABLE ANTICOAGULANT THERAPY. [facility] HEMATOLOGY PT 14.3 s 12.0 - 14.7 06/07/2012 Normal [facility] HEMATOLOGY PTT 29.5 s 22.9 - 35.8 06/07/2012 Normal 5Interpretive Data: Heparin Therapeutic Range: 57 - 92 Seconds [facility] HEMATOLOGY Platelet 149 K/CMM 133 - 450 06/07/2012 Normal [facility] HEMATOLOGY RDW 13.8 % 11.5 - 14.5 06/07/2012 Normal [facility] HEMATOLOGY MPV 8.2 fL 7.4 - 10.4 06/07/2012 Normal [facility] HEMATOLOGY Hgb 13.4 g/dL 14.0 - 18.0 06/07/2012 LOW [facility] HEMATOLOGY MCH 32.8 pg 27.0 - 31.0 06/07/2012 HI [facility] HEMATOLOGY MCV 98.2 fL 80.0 - 94.0 06/07/2012 [facility] HEMATOLOGY Hct 40.2 % 42.0 - 54.0 06/07/2012 LOW [facility] HEMATOLOGY MCHC 33.4 g/dL 32.0 - 36.0 06/07/2012 Normal [facility] HEMATOLOGY RBC 4.10 M/CMM 4.70 - 6.10 06/07/2012 LOW [facility] HEMATOLOGY WBC 14.7 K/CMM 3.7 - 10.4 06/07/2012 HI [facility] CHEMISTRY Calcium Lvl 8.9 mg/dL 8.5 - 10.5 05/23/2011 Normal [facility] CHEMISTRY Sodium Lvl 142 meq/L 135 - 145 05/23/2011 Normal [facility] CHEMISTRY BUN 22 mg/dL 7 - 22 05/23/2011 Normal [facility] CHEMISTRY Glucose Lvl 125 mg/dL 05/23/2011 NA 1Interpretive Data: Reference Ranges : 0 - 7 days : 41 - 90 mg/dL7 days - 150 yrs : 70 - 99 mg/dL (fasting), based on the clinical recommendations of the [place] [employer]. [facility] CHEMISTRY Chloride Lvl 107 meq/L 95 - 109 05/23/2011 Normal [facility] CHEMISTRY Potassium Lvl 3.7 meq/L 3.5 - 5.1 05/23/2011 Normal [facility] CHEMISTRY Creatinine Lvl 1.1 mg/dL 0.5 - 1.4 05/23/2011 Normal [facility] CHEMISTRY CO2 27 meq/L 24 - 32 05/23/2011 Normal [facility] CHEMISTRY AGAP 11.7 meq/L 10.0 - 20.0 05/23/2011 Normal [facility] HEMATOLOGY Lymphocytes # 1.5 K/CMM 1.0 - 5.5 05/23/2011 Normal [facility] HEMATOLOGY Monocytes # 0.7 K/CMM 0.0 - 0.8 05/23/2011 Normal [facility] HEMATOLOGY Eosinophils # 0.3 K/CMM 0.0 - 0.5 05/23/2011 Normal [facility] HEMATOLOGY Basophils # 0.1 K/CMM 0.0 - 0.2 05/23/2011 Normal [facility] HEMATOLOGY Segs-Bands # 4.8 K/CMM 1.5 - 8.1 05/23/2011 Normal [facility] HEMATOLOGY Basophils 0.8 % 0.0 - 1.0 05/23/2011 Normal [facility] HEMATOLOGY Lymphocytes 20.4 % 20.0 - 40.0 05/23/2011 Normal [facility] HEMATOLOGY Monocytes 9.6 % 2.0 - 12.0 05/23/2011 Normal [facility] HEMATOLOGY Eosinophils 3.5 % 0.0 - 4.0 05/23/2011 Normal [facility] HEMATOLOGY Segs 65.7 % 45.0 - 75.0 05/23/2011 Normal [facility] HEMATOLOGY RBC 3.93 M/CMM 4.70 - 6.10 05/23/2011 LOW [facility] HEMATOLOGY Hct 37.4 % 42.0 - 54.0 05/23/2011 LOW [facility] HEMATOLOGY Hgb 13.1 g/dL 14.0 - 18.0 05/23/2011 LOW [facility] HEMATOLOGY WBC 7.4 K/CMM 3.7 - 10.4 05/23/2011 Normal [facility] HEMATOLOGY MCHC 35.1 g/dL 32.0 - 36.0 05/23/2011 Normal [facility] HEMATOLOGY MCH 33.4 pg 27.0 - 31.0 05/23/2011 [facility] HEMATOLOGY MCV 95.2 fL 80.0 - 94.0 05/23/2011 [facility] HEMATOLOGY MPV 8.2 fL 7.4 - 10.4 05/23/2011 Normal [facility] HEMATOLOGY Platelet 188 K/CMM 133 - 450 05/23/2011 Normal [facility] HEMATOLOGY RDW 13.1 % 11.5 - 14.5 05/23/2011 Normal [facility] Vital Signs Vital Sign Value Date Comments Source BMI Calculated 27.73 06/03/2018 [facility] Weight 82.727 06/03/2018 [facility] Height 172.72 cm 06/03/2018 [facility] Systolic (mm Hg) 122 06/03/2018 [facility] Diastolic (mm Hg) 72 06/03/2018 [facility] Heart Rate 60 06/03/2018 [facility] Temperature Oral (F) 97 F 06/03/2018 [facility] Temperature Oral (F) 97.9 F 05/23/2018 [facility] Systolic (mm Hg) 129 05/23/2018 [facility] Diastolic (mm Hg) 78 05/23/2018 [facility] Respitory Rate 18 05/23/2018 [facility] Respitory Rate 16 05/23/2018 [facility] Systolic (mm Hg) 137 05/23/2018 [facility] Diastolic (mm Hg) 68 05/23/2018 [facility] Height 177.8 cm 05/23/2018 [facility] BMI Calculated 26.6 05/23/2018 [facility] Weight 84.091 05/23/2018 [facility] Systolic (mm Hg) 113 05/23/2018 [facility] Diastolic (mm Hg) 59 05/23/2018 [facility] Temperature Oral (F) 97.8 F 05/23/2018 [facility] Heart Rate 61 05/23/2018 [facility] Respitory Rate 18 05/23/2018 [facility] Systolic (mm Hg) 161 05/18/2018 [facility] Diastolic (mm Hg) 83 05/18/2018 [facility] Respitory Rate 17 05/18/2018 [facility] Systolic (mm Hg) 161 05/18/2018 [facility] Diastolic (mm Hg) 88 05/18/2018 [facility] Respitory Rate 15 05/18/2018 [facility] Respitory Rate 16 05/18/2018 [facility] Systolic (mm Hg) 161 05/18/2018 [facility] Diastolic (mm Hg) 86 05/18/2018 [facility] BMI Calculated 28.19 05/18/2018 [facility] Weight 84.091 05/18/2018 [facility] Height 172.72 cm 05/18/2018 [facility] BMI Calculated 32.02 05/15/2018 [facility] Weight 90 05/15/2018 [facility] Height 167.64 cm 05/15/2018 [facility] Respitory Rate 18 07/14/2014 [facility] Systolic (mm Hg) 116 07/14/2014 [facility] Diastolic (mm Hg) 62 07/14/2014 [facility] Heart Rate 64 07/14/2014 [facility] Systolic (mm Hg) 128 07/14/2014 [facility] Diastolic (mm Hg) 65 07/14/2014 [facility] Heart Rate 68 07/14/2014 [facility] Respitory Rate 20 07/14/2014 [facility] Heart Rate 71 07/14/2014 [facility] Respitory Rate 24 07/14/2014 [facility] Systolic (mm Hg) 145 07/14/2014 [facility] Diastolic (mm Hg) 75 07/14/2014 [facility] BMI Calculated 37.2 07/14/2014 [facility] Weight 104.545 07/14/2014 [facility] Height 167.64 cm 07/14/2014 [facility] Temperature Oral (F) 98.7 F 05/19/2014 [facility] Heart Rate 76 05/19/2014 [facility] Respitory Rate 17 05/19/2014 [facility] Systolic (mm Hg) 139 05/19/2014 [facility] Diastolic (mm Hg) 83 05/19/2014 [facility] Temperature Oral (F) 98.3 F 05/19/2014 [facility] Heart Rate 74 05/19/2014 [facility] Respitory Rate 17 05/19/2014 [facility] Systolic (mm Hg) 139 05/19/2014 [facility] Diastolic (mm Hg) 80 05/19/2014 [facility] Temperature Oral (F) 97.9 F 05/19/2014 [facility] Systolic (mm Hg) 132 05/19/2014 [facility] Diastolic (mm Hg) 73 05/19/2014 [facility] Respitory Rate 17 05/19/2014 [facility] Heart Rate 75 05/19/2014 [facility] Weight 96.727 05/13/2014 [facility] Weight 104.091 05/12/2014 [facility] Height 172.72 cm 05/12/2014 [facility] Weight 104.545 05/12/2014 [facility] BMI Calculated 35.04 05/12/2014 [facility] Weight 100.000 06/07/2012 [facility] Height 172.72 cm 06/07/2012 [facility] Systolic (mm Hg) 141 05/23/2011 [facility] Heart Rate 81 05/23/2011 [facility] Temperature Oral (F) 98.0 F 05/23/2011 [facility] Diastolic (mm Hg) 81 05/23/2011 [facility] Respitory Rate 18 05/23/2011 [facility] Weight 95.455 05/23/2011 [facility] Height 167.64 cm 05/23/2011 [facility] Temperature Oral (F) 97.6 F 05/23/2011 [facility] Respitory Rate 18 05/23/2011 [facility] Heart Rate 89 05/23/2011 [facility] Diastolic (mm Hg) 80 05/23/2011 [facility] Systolic (mm Hg) 154 05/23/2011 [facility] Temperature Oral (F) 98.2 F 04/12/2011 [facility] Systolic (mm Hg) 146 04/12/2011 [facility] Diastolic (mm Hg) 78 04/12/2011 [facility] Heart Rate 66 04/12/2011 [facility] Respitory Rate 18 04/12/2011 [facility] Height 167.64 cm 04/12/2011 [facility] Weight 97.727 04/12/2011 [facility] Respitory Rate 18 04/12/2011 [facility] Heart Rate 87 04/12/2011 [facility] Diastolic (mm Hg) 69 04/12/2011 [facility] Systolic (mm Hg) 147 04/12/2011 [facility] Temperature Oral (F) 98.7 F 04/12/2011 [facility] Encounters Location Location Details Encounter Type Encounter Number Reason For Visit Attending Provider ADM Date DC Date Status Source [facility] Emergency [id number] LEG PAIN AND BACK DANTE EDMUNDO 04/12/2011 04/12/2011 Active [facility] Emergency [id number] ALLERGIES HALEY ARACELIS 05/23/2011 05/23/2011 Active [facility] Emergency [id number] COUGH DIDIER SHAHNAZ 06/07/2012 06/07/2012 Active [facility] [place] [facility] Di[facility] Services [id number] Jose Luis Yates 02/23/2014 [facility]/24[facility] [id number] Morris Mcfarlane 05/12/2014 05/19/2014 [facility] [id number] Hawk Merida 07/14/2014 07/14/2014 [facility] Outpatient [id number] Pilar Souza 07/20/2014 07/20/2014 [facility] - [place] Out[facility] Diag Services [id number] Jose Luis Yates 09/12/2015 09/13/2015 [facility] [place] [facility] Outpatient [id number] Pilar Souza 12/14/2015 12/15/2015 [facility] [place] Outpt Diag Services [id number] Jose Luis Briscoea 05/01/2016 05/02/2016 [facility] [place] Outpatient [id number] MARIZA HERNANDEZ 05/08/2018 Active [facility] Outpatient [id number] JS BARRERANCO 05/18/2018 Active [facility] Bedded Outpatient [id number] Cedric Villarreal 05/18/2018 05/18/2018 [facility] [place] [id number] Js Josesito 05/18/2018 05/19/2018 [facility] Emergency [id number] Wes Александрharley 05/23/2018 05/23/2018 [facility] Outpatient [id number] MARIZA HERNANDEZ 06/02/2018 Active [facility] Ambulatory Pre-Reg [id number] Mariza Hernandez 06/02/2018 06/02/2018 [facility] [place] [id number] MARIZA HERNANDEZ 06/03/2018 Active [facility] Outpatient [id number] Mariza Hernandez 06/03/2018 06/04/2018 [facility] Phone Message [id number] 06/04/2018 06/06/2018 [facility] Procedures Procedure Code Date Perfomer Comments Source Craniotomy [id number] 04/20/2018 [facility] Craniotomy [id number] 04/20/2018 [facility] Appendectomy [id number] [facility] [id number] [facility] [place] [facility] [id number] [facility] Appendectomy [id number] [facility]
--- OUTSIDE RECORDS SUMMARY | 2018-07-28 11:15 | XMS REPORT ---
Author Author [facility] Address Unknown Phone Unavailable Care Team Providers Care Dry Cell Tester Name Role Phone RENE HAYES Unavailable Unavailable DENICE GIRALDO Unavailable Unavailable Problems This patient has no known problems. Allergies, Adverse Reactions, Alerts This patient has no known allergies or adverse reactions. Medications This patient has no known medications. Results Test Description Test Time Test Comments Text Results Atomic Results Result Comments CHEST SINGLE (PORTABLE) 2017-12-27 06:49:00 [place] [address] Patient Name: DEVIKA ALICEA MR #: [id number] : 1940 Age/Sex: 77/M Req #: [id number] Adm Physician: RENE HAYES MD Ordered by: STEVE CLANCY DIVEMASTER Report #: [id number] Location: ICU Room/Bed: ICU [facility] Procedure: [id number] DX/CHEST SINGLE (PORTABLE) Exam Date: Exam Time: REPORT STATUS: Signed EXAM: CHEST SINGLE (PORTABLE), AP 1 view INDICATION: Chest pain COMPARISON: AP view of the chest December 26, 2017 FINDINGS: LINES/TUBES: None LUNGS: No consolidations or edema. Mild subsegmental bibasilar atelectasis and central bronchial thickening. PLEURA: No effusions or pneumothorax. HEART AND MEDIASTINUM: Normal size and contour. BONES AND SOFT TISSUES: No acute findings. IMPRESSION: Mild subsegmental bibasilar atelectasis and central bronchial thickening. Signed by: Dr. Maria Antonia Solo M.D. on 12/27/2017 6:50 AM Dictated By: MARIA ANTONIA SOLO MD 9 Transcribed By: JSOE on 12/27/17649 COPY TO: STEVE CLANCY NP CHEST SINGLE (PORTABLE) 2017-12-26 16:56:00 [place] [address] Patient Name: DEVIKA ALICEA MR #: [id number] : 1940 Age/Sex: 77/M Req #: [id number] Adm Physician: Ordered by: JUS HUERTA MD Report #: [id number] Location: ER Room/Bed: Procedure: [id number] DX/CHEST SINGLE (PORTABLE) Exam Date: 12/26/17 Exam Time: 1614 REPORT STATUS: Signed EXAMINATION: CHEST SINGLE (PORTABLE) INDICATION: COMPARISON: Chest radiograph 03/12/2017 FINDINGS: AP view TUBES and LINES: None. LUNGS: Lungs are well inflated. Lungs are clear. There is no evidence of pneumonia or pulmonary edema. PLEURA: No pleural effusion or pneumothorax. HEART AND MEDIASTINUM: The cardiomediastinal silhouette is unremarkable. BONES AND SOFT TISSUES: No acute osseous lesion. Soft tissues are unremarkable. UPPER ABDOMEN: No free air under the diaphragm. IMPRESSION: No acute thoracic abnormality. Signed by: DR. Guillermo Reese MD on 12/26/2017 4:57 PM Dictated By: GUILLERMO REESE MD 56 Transcribed By: JOSE on 12/26/171656 COPY TO: JUS HUERTA MD MRI RIGHT KNEE WO [facility] [address] [place] [address] Patient Name: DEVIKA ALICEA MR #: [id number] : 1940 Age/Sex: 76/M Req #: [id number] Adm Physician: Ordered by: DENICE GIRALDO MD Report #: [id number] Location: MRI Room/Bed: Procedure: [id number] MRI/MRI RIGHT KNEE WO Exam Date: Exam Time: REPORT STATUS: Signed Right knee MRI without contrast. History: Knee pain. Meniscus tear. Decreased range of motion. Pain not responding to conservative management. Arthritis. Comparison: None. Technique: Multiplanar multi-sequence MRI of the knee without contrast. Findings: Medial compartment: There is a complex tear involving the posterior horn and body segments of the medial meniscus. Meniscal tissue is displaced to the periphery. There is advanced full-thickness articular cartilage loss in the medial compartment with underlying bone marrow edema. There are peripheral marginal osteophytes. The medial collateral ligament complex is intact. Lateral compartment: There is a complex tear involving the posterior horn and body segments of the lateral meniscus. There are regions of articular cartilage fraying and deep fissuring in the lateral compartment with subchondral cystic change and mild bone marrow edema. There are peripheral marginal osteophytes. The lateral collateral ligament complex is intact. Intercondylar notch: There is a chronic appearing full-thickness anterior cruciate ligament tear. The posterior cruciate ligament is intact. Patellofemoral compartment: There are regions of full-thickness articular cartilage loss in the patellofemoral compartment. There are peripheral marginal osteophytes area there is mild underlying bone marrow edema. Extensor mechanism: The quadriceps and patellar tendons are normal. Other findings: There is a joint effusion and synovitis. There is no acute fracture, subluxation or avascular necrosis. Varicose veins are seen. 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 Complex lateral meniscus tear with less severe degenerative arthrosis in the lateral c ompartment of the knee. 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 Regions of full-thickness articular cartilage loss in the patellofemoral compartment. Signed by: Dr. Harvey Metzger M.D. on 08/26/2017 9:15 AM Dictated By: HARVEY METZGER MD, MD 4 Transcribed By: JOSE on 08/26/17914 COPY TO: DENICE GIRALDO MD MRI KNEE LEFT WO [place] [address] Patient Name: DEVIKA ALICEA MR #: [id number] : 1940 Age/Sex: 76/M Req #: [id number] Adm Physician: Ordered by: DENICE GIRALDO MD Report #: [id number] Location: MRI Room/Bed: Procedure: [id number] MRI/MRI KNEE LEFT WO Exam Date: Exam Time: REPORT STATUS: Signed Left knee MRI without contrast. History: Knee pain. Meniscus tear. Decreased range of motion. Pain not responding to conservative management. Arthritis. Comparison: None. Technique: Multiplanar multi-sequence MRI of the knee without contrast. Findings: Medial compartment: There is a complex tear involving the posterior horn and body segments of the medial meniscus. Meniscal tissue is displaced to the periphery. There are regions of articular cartilage fraying and deep fissuring in the medial compartment with underlying bone marrow edema. There are peripheral marginal osteophytes. The medial collateral ligament complex is intact. Lateral compartment: There is a complex tear involving the anterior horn and body segments of the lateral meniscus. There are regions of articular cartilage fraying and deep fissuring in the lateral compartment with mild bone marrow edema. There are peripheral marginal osteophytes. The lateral collateral ligament complex is intact. Intercondylar notch: There is a chronic appearing near full-thickness anterior cruciate ligament tear. A few intact fibers are seen. The posterior cruciate ligament is intact. Patellofemoral compartment: There are regions of full- thickness articular cartilage loss in the patellofemoral compartment. There are peripheral marginal osteophytes. There is mild underlying bone marrow edema. Extensor mechanism: The quadriceps and patellar tendons are normal. Other findings: There is a joint effusion and synovitis. There is no acute fracture, subluxation or avascular necrosis. Varicose veins are seen. IMPRESSION: Complex medial meniscus tear with moderate degenerative arthrosis in the medial compartment of the knee. Complex lateral meniscus tear with less severe degenerative arthrosis in the lateral compartment of the knee. Chronic appearing near full-thickness anterior cruciate ligament tear. Regions of full-thickness articular cartilage loss in the patellofemoral compartment. Signed by: Dr. Harvey Metzger M.D. on 08/26/2017 9:21 AM Dictated By: HARVEY METZGER MD, MD 0 Transcribed By: JOSE on 08/26/17920 COPY TO: DENICE GIRALDO MD KNEE THREE VIEWS BILATERAL [place] [address] Patient Name: DEVIKA ALICEA MR #: [id number] : 1940 Age/Sex: 76/M Req #: [id number] Adm Physician: Ordered by: RENE HAYES MD Report #: [id number] Location: [facility] Room/Bed: Procedure: [id number] DX/KNEE THREE VIEWS BILATERAL Exam Date: 08/14/17 Exam Time: 0900 REPORT STATUS: Signed PROCEDURE: KNEE THREE VIEWS BILATERAL COMPARISON: None. INDICATIONS: KNEE PAIN FINDINGS: There are no fractures, dislocations, lytic or blastic lesions. The bones are well-mineralized. The soft-tissues are unremarkable. Tricompartmental degenerative changes evidenced by joint space narrowing and subchondral sclerosis. Atherosclerotic calcifications. CONCLUSION: No acute radiographic abnormality. Degenerative changes. Dictated by: Carey Marion M.D. on 08/14/2017 at 10:50 Electronically approved by: Carey Marion M.D. on 08/14/2017 at 10:50 Dictated By: CAREY MARION MD 1050 Transcribed By: NOEMI on 08/14/17 1050 COPY TO: RENE HAYES MD US RENAL RETROPERITONEAL COMP [place] [address] Patient Name: DEVIKA ALICEA MR #: [id number] : 1940 Age/Sex: 76/M Req #: [id number] [facility] Physician: RENE HAYES MD Ordered by: RENE HAYES MD Report #: [id number] Location: [facility] Room/Bed: [place] Procedure: [id number] US/US RENAL RETROPERITONEAL COMP Exam Date: 03/13/17 Exam Time: 1520 REPORT STATUS: Signed PROCEDURE: US RETROPERITONEAL ( KIDNEY ). COMPARISON: None. INDICATIONS: BETO TECHNIQUE: Kathleen-scale and color sonographic images of the bilateral kidneys and bladder where obtained in transverse and longitudinal planes. FINDINGS: RIGHT KIDNEY: 12.9 cm, cortex 1.6 cm Cysts: None Solid masses: None Stones: None Hydronephrosis: None Echogenicity: Slightly increased LEFT KIDNEY: 12.8 cm, cortex 1.9 cm Cysts: None Solid masses: None Stones: None Hydronephrosis: None Echogenicity: Slightly increased Bladder: No focal lesions. Prostate: Not visualized. CONCLUSION: 1. Normal bilateral renal size. Slightly increased renal cortical echogenicity, likely reflecting mild medical renal disease. No hydronephrosis, stones, or solid lesions. Bertin Bliss M.D. Dictated by: Bertin Bliss M.D. on 03/13/2017 at 16:28 Electronically approved by: Bertin Bliss M.D. on 03/13/2017 at 16:28 Dictated By: BERTIN BLISS MD 27 Transcribed By: NOEMI on 03/13/171627 COPY TO: RENE HAYES MD CHEST XRAY LINE PLACEMENT [place] [address] Patient Name: DEVIKA ALICEA MR #: [id number] : 1940 Age/Sex: 76/M Req #: [id number] Adm Physician: ETHEL MCCALL MD Ordered by: RENE HAYES MD Report #: [id number] Location: [facility] Room/Bed: [place] [address] Procedure: [id number] DX/CHEST XRAY LINE PLACEMENT Exam Date: Exam Time: REPORT STATUS: Signed Examination: Single AP view of the chest. COMPARISON: None. INDICATION: PICC line placement IMPRESSION: 1. Lines and Tubes: Right-sided PICC line has its distal tip projecting in the mid SVC. 2. Linear opacity in the left lower lung, likely reflect subsegmental atelectasis. The lungs are otherwise clear. 3. Cardiomediastinal silhouette is normal. Pulmonary vasculature is normal. 4. No acute bony abnormalities. Signed by: Dr. Bertin Bliss M.D. on 03/12/2017 7:57 PM Dictated By: BERTIN BLISS MD 56 Transcribed By: JOSE on 03/12/171956 COPY TO: RENE HAYES MD
--- OUTSIDE RECORDS SUMMARY | 2018-07-28 11:15 | XMS REPORT | Summary of Care ---
Author Author [facility] Address Unknown Phone Unavailable Encounter HQ Encntr_alicoleen(FIN) [id number] Date(s): 06/02/18 - 06/02/18 [facility] [address], [address] [phone] Attending Physician: Alexis Separ MD Referring Physician: Jarod Rainey MD Vital [...] Response Alcohol Never Smoking Status Former smoker; Type: Cigarettes; Lives with someone who smokes; Cigarette Smoking Last 365 Days Yes; Reg Smoking Cessation Counseling No entered on: 06/03/18 Assessment and Plan No data available for this section
--- OUTSIDE RECORDS SUMMARY | 2018-07-28 11:15 | XMS REPORT | Summary of Care ---
Author Author [facility] Address Unknown Phone Unavailable Encounter HQ Bryanr_tomi(FIN) [id number] Date(s): 06/03/18 - 06/03/18 [facility] [address], [address] [place] [phone] Discharge Disposition: Home or Self Care Attending Physician: Alexis Spear MD Referring Physician: Jarod Rainey MD Vital Signs Most recent to 1 oldest [Reference Range]: Height 172.72 cm (06/03/18 8:57 AM) Temperature Oral 97 DegF [96.4-99.1 DegF] (06/03/18 8:57 AM) Blood Pressure 122/72 mmHg [90-140/60-90 mmHg] (06/03/18 8:57 AM) Peripheral Pulse 60 bpm Rate [60-100 bpm] (06/03/18 8:57 AM) Weight 82.727 kg (06/03/18 8:57 AM) Body Mass Index 27.73 m2 (06/03/18 8:57 AM) Problem List Condition Effective Dates Status Health Status Informant Diabetes Resolved mellitus(Confirmed) Escherichia Active coli(Confirmed)1 Hypertension(Confirm Resolved ed) 1Problem added by Discern Expert. Allergies, Adverse Reactions, Alerts Substance Reaction Severity Status penicillins Active contrast media SV^Severe Active (iodine-based) Medications No Known Medications Results No data available for this section [...]
--- OUTSIDE RECORDS SUMMARY | 2018-07-28 11:15 | XMS REPORT | Summary of Care ---
Author Author [facility] Address Unknown Phone Unavailable Encounter HQ Millientr_tomi(FIN) [id number] Date(s): 06/04/18 - 06/05/18 [facility] [address], [address] [place] [phone] Vital Signs No data available for this [...]
--- OUTSIDE RECORDS SUMMARY | 2018-07-28 11:15 | XMS REPORT | Summary of Care ---
Author Author [facility] Organization [facility] Address Unknown Phone Unavailable Encounter MARYCARMEN Dickson(TRACEY) [id number] Date(s): 05/18/18 - 05/18/18 [facility] [address] Discharge Disposition: Home or Self Care Attending Physician: Cedric Merino MD Referring Physician: Cedric Merino MD Vital Signs 1 2 3 Most recent to oldest [Reference Range]: 172.72 cm (05/18/18 6:07 AM) 167.64 cm (05/15/18 1:12 PM) Height 161/83 mmHg *HI* (05/18/18 1:00 PM) 161/88 mmHg *HI* (05/18/18 12:45 PM) 161/86 mmHg *HI* (05/18/18 12:30 PM) Blood Pressure [90-140/60-90 mmHg] 17 BRMIN (05/18/18 1:00 PM) 15 BRMIN (05/18/18 12:45 PM) 16 BRMIN (05/18/18 12:30 PM) Respiratory Rate [14-20 BRMIN] 84.091 kg (05/18/18 6:07 AM) 90 kg (05/15/18 1:12 PM) Weight 28.19 m2 (05/18/18 6:07 AM) 32.02 m2 (05/15/18 1:12 PM) Body Mass Index Problem List Condition Effective Dates Status Health Status Informant Diabetes Resolved mellitus(Confirmed) Escherichia Active coli(Confirmed)1 Hypertension(Confirm Resolved ed) 1Problem added by Discern Expert. Allergies, Adverse Reactions, Alerts Substance Reaction Severity Status penicillins Active contrast media SV^Severe Active (iodine-based) Medications acetaminophen 325 mg, 1 tab, Route: PO, Drug form: TAB, Q4H, Dosing Weight 84.091, kg, PRN Nick n Score 1-3, Start date: 05/18/18 11:06:00 HEALTH AND SAFETY TECHNICIAN, Duration: 30 day, Stop date: 11:05:00 HEALTH AND SAFETY TECHNICIAN Notes: Do not exceed 4 gm/day. (Same as: Tylenol) Start Date: 05/18/18 Stop Date: 05/18/18 Status: Discontinued acetaminophen-hydrocodone 325 mg-5 mg oral tablet 1 tab, Route: PO, Drug Form: TAB, Dosing Weight 84.091, kg, Q4H, PRN Pain Score 4-6, Start date: 05/18/18 11:06:00 HEALTH AND SAFETY TECHNICIAN, Duration: 30 day, Stop date: 06/17/18 11 :05:00 HEALTH AND SAFETY TECHNICIAN Notes: (Same as: [place] 325/5) Do not exceed 4gm/day of acetaminophen. Start Date: 05/18/18 Stop Date: 05/18/18 Status: Discontinued acetaminophen-hydrocodone 325 mg-5 mg oral tablet 2 tab, Route: PO, Drug Form: TAB, Dosing Weight 84.091, kg, Q4H, PRN Pain Score 7-10, Start date: 05/18/18 11:06:00 HEALTH AND SAFETY TECHNICIAN, Duration: 30 day, Stop date: 06/17/18 1 1:05:00 HEALTH AND SAFETY TECHNICIAN Notes: (Same as: [place] 325/5) Do not exceed 4gm/day of acetaminophen. Start Date: 05/18/18 Stop Date: 05/18/18 Status: Discontinued bupivacaine 0.25%-epinephrine 1:200,000 injectable solution 30 mL, Route: MISC, Dosing Weight 90, kg, ONCALL, Start date: 05/18/18 6:00:[address], Duration: 30 day, Stop date: 06/17/18 5:59:00 HEALTH AND SAFETY TECHNICIAN Start Date: 05/18/18 Stop Date: 05/18/18 Status: Completed dexamethasone 6 mg, 0.6 mL, Route: IVP, Drug form: INJ, ONCE, Dosing Weight 90, kg, Start date : 05/18/18 5:21:00 HEALTH AND SAFETY TECHNICIAN, Stop date: 05/18/18 5:21:00 HEALTH AND SAFETY TECHNICIAN Notes: MEDICATION WASTE Product Size: 10 mgProduct Wasted: _4__ mg Start Date: 05/18/18 Stop Date: 05/18/18 Status: Completed Diphen 25 mg oral capsule 50 mg=2 cap, PO, ONCE, take 2 caps by mouth one hour before the contrast medium injection., # 2 cap, 0 Refill(s), Pharmacy: [facility] [id number] Start Date: 05/15/18 Status: Ordered famotidine 20 mg, 2 mL, Route: IVP, Drug form: INJ, ONCE, Dosing Weight 90, kg, Start date: 05/18/18 5:21:00 HEALTH AND SAFETY TECHNICIAN, Stop date: 05/18/18 5:21:00 HEALTH AND SAFETY TECHNICIAN Notes: (Same as: Pepcid)Can be dilute in 5-10cc NS IVP: Slow IV push over at le ast 2 minutes. Start Date: 05/18/18 Stop Date: 05/18/18 Status: Completed fentaNYL 25 microgram, 0.5 mL, Route: IVP, Drug form: INJ, Q1H, Dosing Weight 90, kg, PRN Pain Score 7-10, Priority: Routine, Start date: 05/18/18 5:21:00 HEALTH AND SAFETY TECHNICIAN, Duration: 1 doses or times, Stop date: 05/19/18 0:00:00 HEALTH AND SAFETY TECHNICIAN Notes: (Same as: Sublimaze) Preservative free. Start Date: 05/18/18 Stop Date: 05/18/18 Status: Discontinued fentaNYL 50 microgram, Route: IVP, ONCALL, Dosing Weight 90, kg, Priority: Routine, Start date: 05/18/18 6:00:00 HEALTH AND SAFETY TECHNICIAN, Duration: 1 doses or times Start Date: 05/18/18 Stop Date: 05/18/18 Status: Completed ondansetron 4 mg, 2 mL, Route: IVP, Drug form: INJ, Q6H, Dosing Weight 90, kg, PRN Nausea & Vomiting, Start date: 05/18/18 5:21:00 HEALTH AND SAFETY TECHNICIAN, Duration: 30 day, Stop date: 5:20:00 HEALTH AND SAFETY TECHNICIAN Notes: (Same as: Zofran) MEDICATION WASTE Product Size: 4 mgProduct Was tanya: _0__ mg Start Date: 05/18/18 Stop Date: 05/18/18 Status: Discontinued Polysporin topical ointment 1 appl, Route: TOP, ONCALL, Drug form: OINT, Priority: Routine, Start date: 04/29 05/16 6:00:00 HEALTH AND SAFETY TECHNICIAN, Duration: 1 doses or times Start Date: 05/18/18 Stop Date: 05/18/18 Status: Completed predniSONE 50 mg oral tablet 50 mg=1 tab, PO, Daily, take 1 tab by mouth 13 hours, 7 hours, and 1 hour before cotrast medium injection, # 3 tab, 0 Refill(s), Pharmacy: [facility] [id number] Start Date: 05/15/18 Stop Date: 05/18/18 Status: Completed promethazine 25 mg, 1 mL, Route: IVPB, Drug form: INJ, Q6H, Dosing Weight 90, kg, PRN Nausea & Vomiting, Start date: 05/18/18 5:21:00 HEALTH AND SAFETY TECHNICIAN, Duration: 30 day, Stop date: 06/17/18 5:20:00 HEALTH AND SAFETY TECHNICIAN Notes: Do not give IV push. (Same as: Phenergan) Start Date: 05/18/18 Stop Date: 05/18/18 Status: Discontinued Sodium Chloride 0.9% IV 1,000 mL 1,000 mL, Rate: 50 ml/hr, Infuse over: 20 hr, Route: IV, Dosing Weight 84.091 kg , Total Volume: 1,000, Priority: Routine, Start date: 05/18/18 11:06:00 HEALTH AND SAFETY TECHNICIAN, Dur ation: 30 day, Stop date: 06/17/18 11:05:00 HEALTH AND SAFETY TECHNICIAN, 2.03, m2 Start Date: 05/18/18 Stop Date: 05/18/18 Status: Discontinued Sodium Chloride 0.9% IV 1,000 mL 1,000 mL, Rate: 50 ml/hr, Infuse over: 20 hr, Route: IV, Dosing Weight 90 kg, To gina Volume: 1,000, Priority: Routine, Start date: 05/18/18 5:21:00 HEALTH AND SAFETY TECHNICIAN, Duration : 30 day, Stop date: 06/17/18 5:20:00 HEALTH AND SAFETY TECHNICIAN, 2.07, m2 Start Date: 05/18/18 Stop Date: 05/18/18 Status: Discontinued Results CHEM PANEL Most recent to 1 oldest [Reference Range]: eGFR 41 mL/min/1.73m2 1 *NA* (05/18/18 5:49 AM) POC Creatinine 1.6 mg/dL [0.5-1.4 mg/dL] *HI* (05/18/18 5:49 AM) 1Result Comment: The eGFR is calculated using [...] from the National Kidney Disease Education Program ( NKDEP) which additionally recommends that when the eGFR is used in patients with extremes of body mass index for purposes of drug dosing, the eGFR should be mul tiplied by the estimated BMI. Immunizations Not Given Vaccine Date Status Refusal [...]
--- OUTSIDE RECORDS SUMMARY | 2018-07-28 11:15 | XMS REPORT | Summary of Care ---
Author Author [facility] Organization [facility] Address Unknown Phone Unavailable Encounter HQ Randolph(FIN) [id number] Date(s): 05/22/18 - 05/22/18 [facility] [address] [facility] [place] [address]- Encounter Diagnosis Headache (Discharge Diagnosis) - 05/22/18 Discharge Disposition: Home or Self Care Attending Physician: Wes Winslow MD Vital Signs 1 2 3 Most recent to oldest [Reference Range]: 177.8 cm (05/22/18 7:16 PM) Height 97.9 DegF (05/22/18 11:51 PM) 97.8 DegF (05/22/18 7:16 PM) Temperature Oral [96.4-99.1 DegF] 129/78 mmHg (05/22/18 11:51 PM) 137/68 mmHg (05/22/18 9:51 PM) 113/59 mmHg (05/22/18 7:16 PM) Blood Pressure [90-140/60-90 mmHg] 18 BRMIN (05/22/18 11:51 PM) 16 BRMIN (05/22/18 9:51 PM) 18 BRMIN (05/22/18 7:16 PM) Respiratory Rate [14-20 BRMIN] 61 bpm (05/22/18 7:16 PM) Peripheral Pulse Rate [60-100 bpm] 84.091 kg (05/22/18 7:16 PM) Weight 26.6 m2 (05/22/18 7:16 PM) Body Mass Index Problem List Condition Effective Dates Status Health Status Informant Diabetes Resolved mellitus(Confirmed) Escherichia Active coli(Confirmed)1 Hypertension(Confirm Resolved ed) 1Problem added by Discern Expert. Allergies, Adverse Reactions, Alerts Substance Reaction Severity Status penicillins Active contrast media SV^Severe Active (iodine-based) Medications NS (Bolus) IV 500 mL, 500 ml/hr, Infuse Over: 1 hr, Route: IV, 500, Drug form: INJ, ONCE, Prio rity: STAT, Dosing Weight 84.091 kg, Start date: 05/22/18 22:22:00 BASKET BRAIDER, Stop ede e: 05/22/18 22:22:00 BASKET BRAIDER Start Date: 05/22/18 Stop Date: 05/22/18 Status: Completed Results ELECTROLYTES Most recent to 1 oldest [Reference Range]: Sodium Lvl [135-145 139 mEq/L mEq/L] (05/22/18 10:45 PM) Potassium Lvl 3.9 mEq/L [3.5-5.1 mEq/L] (05/22/18 10:45 PM) Chloride Lvl [95-109 102 mEq/L mEq/L] (05/22/18 10:45 PM) CO2 [24-32 mEq/L] 27 mEq/L (05/22/18 10:45 PM) AGAP [10.0-20.0 13.9 mEq/L mEq/L] (05/22/18 10:45 PM) CHEM PANEL Most recent to 1 oldest [Reference Range]: Creatinine Lvl 1.44 mg/dL [0.50-1.40 mg/dL] *HI* (05/22/18 10:45 PM) eGFR 47 mL/min/1.73m2 1 *NA* (05/22/18 10:45 PM) BUN [7-22 mg/dL] 33 mg/dL *HI* (05/22/18 10:45 PM) Glucose Lvl [70-99 109 mg/dL mg/dL] *HI* (05/22/18 10:45 PM) Calcium Lvl 9.1 mg/dL [8.5-10.5 mg/dL] (05/22/18 10:45 PM) 1Result Comment: The eGFR is calculated using [...] be mul tiplied by the estimated BMI. HEMATOLOGY Most recent to 1 oldest [Reference Range]: WBC [3.7-10.4 K/CMM] 9.5 K/CMM (05/22/18 10:45 PM) RBC [4.70-6.10 4.14 M/CMM M/CMM] *LOW* (05/22/18 10:45 PM) Hgb [14.0-18.0 g/dL] 13.7 g/dL *LOW* (05/22/18 10:45 PM) Hct [42.0-54.0 %] 39.0 % *LOW* (05/22/18 10:45 PM) MCV [80.0-94.0 fL] 94.2 fL *HI* (05/22/18 10:45 PM) MCH [27.0-31.0 pg] 33.2 pg *HI* (05/22/18 10:45 PM) MCHC [32.0-36.0 35.2 g/dL g/dL] (05/22/18 10:45 PM) RDW [11.5-14.5 %] 13.6 % (05/22/18 10:45 PM) MPV [7.4-10.4 fL] 7.8 fL (05/22/18 10:45 PM) Platelet [133-450 164 K/CMM K/CMM] (05/22/18 10:45 PM) Segs [45.0-75.0 %] 64.2 % (05/22/18 10:45 PM) Lymphocytes 20.4 % [20.0-40.0 %] (05/22/18 10:45 PM) Monocytes [2.0-12.0 11.5 % %] (05/22/18 10:45 PM) Eosinophils [0.0-4.0 3.2 % %] (05/22/18 10:45 PM) Basophils [0.0-1.0 0.7 % %] (05/22/18 10:45 PM) Neutrophils # 6.1 K/CMM [1.5-8.1 K/CMM] (05/22/18 10:45 PM) Lymphocytes # 1.9 K/CMM [1.0-5.5 K/CMM] (05/22/18 10:45 PM) Monocytes # [0.0-0.8 1.1 K/CMM K/CMM] *HI* (05/22/18 10:45 PM) Eosinophils # 0.3 K/CMM [0.0-0.5 K/CMM] (05/22/18 10:45 PM) Basophils # [0.0-0.2 0.1 K/CMM K/CMM] (05/22/18 10:45 PM) RBC Morph Normal (05/22/18 10:45 PM) Plt Morph Normal (05/22/18 10:45 PM) Immunizations Not Given Vaccine Date Status Refusal Reason pneumococcal 23-valent vaccine 05/12/14 Not Given Patient Refuses Procedures Procedure Date Related Diagnosis Body Site Status Craniotomy 04/20/18 Completed Appendectomy Completed Social History Social History Type Response Alcohol Never Smoking Status Former smoker; Type: Cigarettes; Lives with someone who smokes; Cigarette Smoking Last 365 Days Yes; Reg Smoking Cessation Counseling No entered on: 05/22/18 Assessment and Plan No data available for this section
[2018-07-28 12:16] LABS: BASOPHILS # (AUTO) 0.1 (0.0-0.1); BASOPHILS % 0.5 % (0.0-1.0); EOSINOPHILS # (AUTO) 0.2 (0.0-0.4); EOSINOPHILS % 2.1 % (0.0-6.0); HEMATOCRIT 44.8 % (38.2-49.6); HEMOGLOBIN 14.9 g/dL (14.0-18.0); LYMPHOCYTES # (AUTO) 1.6 (1.0-3.2); LYMPHOCYTES % 13.5 % (18.0-39.1); MEAN CORPUSCULAR HEMOGLOBIN 33.3 pg (28-32); MEAN CORPUSCULAR HGB CONC 33.3 g/dL (31-35); MONOCYTES # (AUTO) 1.2 (0.2-0.8); MONOCYTES % 10.4 % (4.4-11.3); NEUTROPHILS # (AUTO) 8.4 (2.1-6.9); NEUTROPHILS % 72.6 % (38.7-80.0); PLATELET COUNT 253 x10e3/uL (140-360); RED BLOOD COUNT 4.48 x10e6/uL (4.3-5.7); RED CELL DISTRIBUTION WIDTH 14.1 % (11.7-14.4)
[2018-07-28 12:21] LABS: INR 0.99; PROTHROMBIN TIME 13.6 seconds (11.9-14.5)
[2018-07-28 12:22] LABS: PARTIAL THROMBOPLASTIN TIME 28.8 seconds (23.8-35.5)
[2018-07-28 12:23] LABS: BILIRUBIN,URINE NEGATIVE (NEGATIVE); CLARITY,URINE SL CLOUDY (CLEAR); COLOR,URINE YELLOW (YELLOW); KETONES,URINE NEGATIVE (NEGATIVE); LEUKOCYTE ESTERASE ,URINE NEGATIVE (NEGATIVE); NITRITE,URINE NEGATIVE (NEGATIVE); PROTEIN,URINE DIPSTICK 2+ (NEGATIVE)
[2018-07-28 12:24] LABS: URINE UROBILINOGEN 1 mg/dL (0.2 - 1)
[2018-07-28 12:30] LABS: ALANINE AMINOTRANSFERASE 22 IU/L (0-55); ALBUMIN 3.3 g/dL (3.5-5.0); ALBUMIN/GLOBULIN RATIO 0.8 (0.8-2.0); ALKALINE PHOSPHATASE 148 IU/L (40-150); ANION GAP 13.2 mmol/L (8-16); BLOOD UREA NITROGEN 18 mg/dL (7-26); BUN/CREATININE RATIO 19 (6-25); CALCIUM 9.4 mg/dL (8.4-10.2); CARBON DIOXIDE 28 mmol/L (22-29); CHLORIDE 101 mmol/L (98-107); CREATININE, SERUM 0.97 mg/dL (0.72-1.25); EST GLOMERULAR FILTRATION RATE > 60 ML/MIN (60-); GLUCOSE 100 mg/dL (74-118); MAGNESIUM 2.3 MG/DL (1.3-2.1); PHOSPHORUS 3.2 MG/DL (2.3-4.7); POTASSIUM 4.2 mmol/L (3.5-5.1); SODIUM 138 mmol/L (136-145)
[2018-07-28] MEDS ORDERED: ACETAMINOPHEN 325 MG TAB PO ONE (12:30)
[2018-07-28] MEDS ORDERED: ACETAMINOPHEN 325 MG TAB ONE (12:32)
[2018-07-28 12:33] LABS: BACTERIA,URINE RARE /HPF; EPITHELIAL CELLS,URINE RARE /LPF
--- NOTE | 2018-07-28 13:39 | Diagnostic Imaging Report ---
EXAMINATION: PA and lateral views of the chest. COMPARISON: Portable chest 12/27/2017 CLINICAL HISTORY: Shortness of breath, weakness DISCUSSION: Lines/tubes: None. Lungs: Large left sided pneumothorax with complete collapse of the left lung. Right lung is grossly clear, without consolidation, nodules or masses. Pleura: No pleural effusion. Heart and mediastinum: Cardiomediastinal silhouette is unremarkable. Pulmonary vasculature is normal. Bones and soft tissues: No acute bony abnormalities. Degenerative changes in the thoracic spine IMPRESSION: Large left-sided pneumothorax with complete collapse of the left lung. 2. Findings discussed with Dr. Bethea July 28, 2018 1340 hours Signed by: Dr. Bertin Bliss M.D. on 07/28/2018 1:35 PM
[2018-07-28] MEDS ORDERED: LIDOCAINE HCL 2% LOCAL 20 ML VIAL ONE (13:57)
[2018-07-28] MEDS ORDERED: ONDANSETRON HCL INJ 2MG/ML 2ML 2 MG/ML VIAL ONE (14:19)
[2018-07-28] MEDS ORDERED: MORPHINE SULFATE INJ 4 MG/ML INJ 1ML ONE (14:19)
[2018-07-28] MEDS ORDERED: ONDANSETRON HCL INJ 2MG/ML 2ML 2 MG/ML VIAL IV STA (14:33)
[2018-07-28] MEDS ORDERED: MORPHINE SULFATE INJ 4 MG/ML INJ 1ML IV ONE (14:45)
[2018-07-28] MEDS ORDERED: LIDOCAINE HCL 2% LOCAL INJ 5 ML SDV VIAL INJ ONE (14:45)
[2018-07-28] MEDS ORDERED: SODIUM CHLORIDE FLUSH 10 ML SYR INJ PRN (15:30)
[2018-07-28] MEDS ORDERED: ONDANSETRON HCL INJ 2MG/ML 2ML 2 MG/ML VIAL IV PRN (15:30)
[2018-07-28] MEDS ORDERED: ASPIRIN 81 MG CHEW TAB PO ONE (15:30)
--- NOTE | 2018-07-28 15:36 | Diagnostic Imaging Report ---
Examination: Single AP view of the chest. COMPARISON: Earlier 07/28/2018 INDICATION: Chest tube placement DISCUSSION: Interval placement of a left chest tube, which terminates over the medial aspect of the left lung base. Near complete interval reexpansion of the left lung with a small residual apical pneumothorax, air gap approximately 1.5 cm. Linear opacity in the lung base likely reflects residual subsegmental atelectasis. Right lung remains grossly clear. Stable cardiomediastinal contour. No acute osseous abnormality. IMPRESSION: Interval placement of a left chest tube as described above, with near complete interval reexpansion of the left lung. Small residual left apical pneumothorax. Signed by: Dr. Dalton Yost M.D. on 07/28/2018 3:33 PM
[2018-07-28] MEDS ORDERED: MORPHINE SULFATE INJ 4 MG/ML INJ 1ML IV PRN (15:45)
[2018-07-28] MEDS ORDERED: MORPHINE SULFATE 2 MG/ML SYR 1ML IV PRN (16:00)
--- NOTE | 2018-07-28 19:07 | NUR ---
please call dtr to inform of change or move to room. Georgette
--- NOTE | 2018-07-28 19:38 | NUR ---
PT AWAKE ALERT SKIN W/D RESP NONLAB. NAD NOTED. AWAITING BED ASSIGNMENT. APPROX 90ML BLOODY RETURN IN CHEST TUBE DRAIN.
[2018-07-28 20:55] LABS: CREATINE KINASE MB 1.7 ng/mL (0-5.0)
[2018-07-28 22:00] VITALS: BP 148/70
[2018-07-28 22:31] VITALS: BP 148/70
--- NOTE | 2018-07-28 22:40 | NUR ---
Patient daughter in the room. Daughter provided patient's medical history at this time.
[2018-07-28 22:54] VITALS: BP 148/70
--- NOTE | 2018-07-28 23:15 | NUR ---
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 Patient admitted in unit @8990 by stretcher. Patient alert/oriented x2-3 Bel[place]ian speaking. Patient complained pain on left chest. Medicated as ordered. Head to toe assessment completed. No skin issued noted. Bed in lower position,locked. Call lay within reach. Will continue to monitor.
[2018-07-29] VITALS (7 sets, daily range): BP systolic 101–130; BP diastolic 63–71
[2018-07-29 05:45] LABS: BASOPHILS # (AUTO) 0.1 (0.0-0.1); BASOPHILS % 0.7 % (0.0-1.0); EOSINOPHILS # (AUTO) 0.3 (0.0-0.4); EOSINOPHILS % 3.2 % (0.0-6.0); HEMATOCRIT 42.4 % (38.2-49.6); HEMOGLOBIN 13.7 g/dL (14.0-18.0); LYMPHOCYTES # (AUTO) 1.6 (1.0-3.2); LYMPHOCYTES % 18.3 % (18.0-39.1); MEAN CORPUSCULAR HEMOGLOBIN 32.9 pg (28-32); MEAN CORPUSCULAR HGB CONC 32.3 g/dL (31-35); MEAN CORPUSCULAR VOLUME 101.7 fL (81-99); MONOCYTES # (AUTO) 1.3 (0.2-0.8); MONOCYTES % 15.2 % (4.4-11.3); NEUTROPHILS # (AUTO) 5.5 (2.1-6.9); NEUTROPHILS % 61.9 % (38.7-80.0); PLATELET COUNT 220 x10e3/uL (140-360); RED BLOOD COUNT 4.17 x10e6/uL (4.3-5.7)
--- NOTE | 2018-07-29 06:12 | Diagnostic Imaging Report ---
Examination: Single AP view of the chest. COMPARISON: 07/28/2018 INDICATION: Follow-up pneumothorax DISCUSSION: Lines/tubes: Chest tube present. Lungs: Increased consolidation in the left lung. Pleura: No pneumothorax. Heart and mediastinum: The heart and the mediastinum are unremarkable. Bones and soft tissues: No acute bony abnormalities. IMPRESSION: 1. Left lung pneumonia versus reexpansion edema. 2. No pneumothorax. Signed by: Dr. Felix Murcia M.D. on 07/29/2018 6:09 AM
[2018-07-29 06:18] LABS: CREATINE KINASE MB 1.5 ng/mL (0-5.0)
[2018-07-29 06:54] LABS: ALANINE AMINOTRANSFERASE 15 IU/L (0-55); ALBUMIN 2.8 g/dL (3.5-5.0); ALBUMIN/GLOBULIN RATIO 0.8 (0.8-2.0); ALKALINE PHOSPHATASE 128 IU/L (40-150); ANION GAP 12.9 mmol/L (8-16); BLOOD UREA NITROGEN 19 mg/dL (7-26); BUN/CREATININE RATIO 17 (6-25); CARBON DIOXIDE 31 mmol/L (22-29); CHLORIDE 103 mmol/L (98-107); CREATININE, SERUM 1.15 mg/dL (0.72-1.25); EST GLOMERULAR FILTRATION RATE > 60 ML/MIN (60-); GLUCOSE 111 mg/dL (74-118); POTASSIUM 3.9 mmol/L (3.5-5.1); SODIUM 143 mmol/L (136-145)
--- NOTE | 2018-07-29 07:00 | NUR ---
bedside rounds complete no distress noted, updated on poc vocied understanding, denies pain at this time, call light in reach will continue to monitor
--- NOTE | 2018-07-29 07:01 | NUR ---
Report given to oncoming nurse,walking round done.
[2018-07-29] MEDS ORDERED: DEXTROSE 50% SYRINGE 50 ML IV PRN (09:00)
[2018-07-29] MEDS ORDERED: METOPROLOL SUCCINATE 50 MG TAB XL PO SCH (09:00)
[2018-07-29] MEDS ORDERED: NON-FORMULARY MEDICATION (Aspirin 81 MG) PO SCH (09:00)
[2018-07-29] MEDS ORDERED: NON-FORMULARY MEDICATION (Lisinopril 40 MG) PO SCH (09:00)
[2018-07-29] MEDS ORDERED: LISINOPRIL 20 MG TAB PO SCH ×2 (09:30)
[2018-07-29] MEDS ORDERED: VENLAFAXINE HCL75 MG PO (09:59)
[2018-07-29] MEDS ORDERED: AMIODARONE HCL200 MG PO (09:59)
[2018-07-29] MEDS ORDERED: Jardiance PO (09:59)
[2018-07-29] MEDS ORDERED: LEVETIRACETAM500 MG PO (09:59)
[2018-07-29] MEDS ORDERED: atrovastatin PO (09:59)
[2018-07-29] MEDS ORDERED: HYDRALAZINE HCL25 MG PO (09:59)
[2018-07-29] MEDS ORDERED: CLOPIDOGREL75 MG PO (09:59)
[2018-07-29] MEDS ORDERED: LASIX20 MG PO (09:59)
[2018-07-29] MEDS ORDERED: LISINOPRIL 2.5 MG TAB PO SCH (10:00)
[2018-07-29] MEDS ORDERED: PENTOSAN POLYSULFATE SODIUM 100 MG CAP PO SCH (10:00)
[2018-07-29] MEDS: ASPIRIN 81 MG ENTERIC COATED PO SCH (10:30)
[2018-07-29] MEDS: LEVOFLOXACIN 250MG/D5W 50ML 50 ML IV SCH (10:30)
[2018-07-29] MEDS: METOPROLOL SUCCINATE 25 MG TAB XL PO SCH (10:30)
[2018-07-29] MEDS: LEVETIRACETAM 500 MG TAB PO SCH ×2 (10:30→20:25)
[2018-07-29] MEDS: FUROSEMIDE INJ 10 MG/ML 2 ML VIAL IV SCH (10:30)
[2018-07-29] MEDS: AMIODARONE HCL 200 MG TAB PO SCH (10:30)
--- NOTE | 2018-07-29 11:00 | NUR ---
Iv infiltrated, R fa 20g x 1 stick tolerated well, r ac dc'd covered with 2x2 and tape.
[2018-07-29] MEDS: INSULIN LISPRO 100 UNIT/1 ML 3ML VIAL SQ SCH ×3 (11:30→20:25)
--- NOTE | 2018-07-29 12:47 | Consultation ---
DATE OF CONSULTATION: Pulmonary Consultation REASON FOR CONSULT: Pneumothorax. CONSULTING PHYSICIAN: Dr. Ortega. HISTORY OF PRESENT ILLNESS: Mr. Levy is a 77-year-old male, who presented to Dr. Ortega's office with complaints of shortness of breath going on for a week and a half. [place] the [place] and the shortness of breath started and it was associated with chest pain, so he used medication for acid reflux; however, no improvement and they came back, which was two days ago and they saw Dr. Ortega in the office. I spoke to Dr. Ortega. The patient's oxygen saturation was in the 80s with no audible breath sounds on the left side. He was sent to the emergency room, chest tube was placed, and the patient started feeling better. He still has a chest tube. There is minimal air leak and there is fluid drainage. Lung has opened up on the chest x-ray. He is denying any complaints of nausea, vomiting, or diarrhea. He smoked for 25 plus years, four packs per day and he quit around 30 years ago. REVIEW OF SYSTEMS: GENERAL: Denies any fever or chills. HEAD: Denies any head trauma. ENT: Denies any earaches. CVS: Denies any chest pain. RESPIRATORY: Shortness of breath. GI: Denies any nausea or vomiting. The rest of the review of systems are negative except as in HPI. PAST MEDICAL HISTORY: Hypertension, hyperlipidemia, seizure disorder, coronary artery disease, and CKD. PAST SURGICAL HISTORY: Appendectomy, prostate surgery, and kidney stone. FAMILY HISTORY: Mother at the age of 72 from heart attack. SOCIAL HISTORY: He is . 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 Four to five packs per day for 25 years. ALLERGIES: PENICILLIN. PHYSICAL EXAMINATION: VITAL SIGNS: Temperature 97.9, pulse of 60, blood pressure 130/67, respiratory rate is 18 to 20, and O2 saturation 96% on 2 L. HEENT: Head is atraumatic, normocephalic. NECK: Supple. CHEST: Crackles on the left side, but otherwise clear to auscultation. Breath sounds are audible on both sides. He has a left-sided chest tube. HEART: S1, S2 audible. ABDOMEN: Soft, nontender, and nondistended. EXTREMITIES: No pedal edema. No clubbing, cyanosis, or edema. NEUROLOGIC: Awake and alert. No focal neurologic deficit. LABS: White count of 8000, hemoglobin 13.7, and platelets 220. Chemistry is within normal limits. Chest x-ray, I have reviewed the images. The pneumothorax is resolved and re-expansion is done; however, it is showing increased interstitial marking and alveolar markings. ASSESSMENT: Mr. Levy is a 77-year-old male with pneumothorax, previous history of smoking, likely has chronic obstructive pulmonary disease and emphysema; however, not proven. Question of asbestos exposure. Possible etiology of pneumothorax may be emphysema unlikely that he has a spontaneous pneumothorax at this age; however, it is possible: CURRENT PROBLEMS: 1. Left-sided pneumothorax, possibly tension. 2. Coronary artery disease. 3. Hypertension. 4. Chronic kidney disease. PLAN: 1. I will continue the patient on chest tube, small air leak, but we will continue the chest tube for now. 2. CT of the chest without contrast to further evaluate the lung parenchyma. 3. At some point, once the chest tube is out, the patient will need a PFT to evaluate for presence of COPD and emphysema. Detailed discussion was done with the patient and daughter at bedside. MD JOLIE Melgar/IVELISSE /[id number]
--- NOTE | 2018-07-29 13:50 | NUR ---
CASE MANAGEMENT INITIAL ASSESSMENT Supervisor General to bedside to discuss plan of care with patient/family. CM/SW role and care transitions discussed. Anticipated discharge plan discussed along with duration of care. CM/SW discussed patients right to make decisions in care. CM/SW work hours given. Patient lives: LIVES IN 1 STROY HOME W HIS . PT AND SPEAK VERY LITTLE GAMBIAN. DTR AND GDTR SPEAK GAMBIAN WELL. Admit/Transfer: TO ER FROM DR. HAYES'S OFFICE Hospital/ER visits since last admit: NONE. LAST ADMIT WAS TO [facility] FOR CR[facility]OTOMY IN 03/2018; BENIGN. XRT ONLY POA/Emergency contact: SAPPHIRE / CAROLE @ [phone] Current/Previous Home Health: RECEIVES PHYSICAL THERAPY 2X/WEEK, BUT THE GRAND DTR AND MOM CANNOT REMEMBER THE NAME. PCP/Follow-up Care: FREDDY Current/Previous DME: [facility] Other Services: NONE Employment Status: RETIRED Areas of Concerns: NONE Referral Needs: NONE STATES PT WILL F/U IN OCTOBER FOR BRAIN TUMOR Education Needs: EDUCATED FAMILY TO NOTIFY CM OF NAME OF AGENCY FOR CONTINUUM OF HOME CARE / PT IMM/WHITE given and signed (if applicable): ALREADY GIVEN Goal for discharge: RETURN HOME W FAMILY CM/SW left business card at the bedside with contact information. Name and number was also written on the patients whiteboard. Patient verbalized understanding of discussion. CM will follow-up with ongoing discharge and transition of care needs.
--- NOTE | 2018-07-29 13:53 | History and Physical ---
HISTORY OF PRESENT ILLNESS: Hemant Levy is a 77-year-old male, who had a past medical historypositive for congestive heart failure, coronary artery disease status post stent placement, hypertension, and chronic renal insufficiency, came to my office complaining of shortness of breath. On physical exam, he was noted to have decreased breath sounds on the left lung, hypoxemic with oxygen saturation of 88% at rest. He was sent to the emergency room immediately. The patient was found to have pneumothorax. Chest tube was placed immediately. The patient is feeling much better and he was also complaining of chest pain. REVIEW OF SYSTEMS: CARDIOVASCULAR: He had some chest pain. No palpitation. RESPIRATORY: Shortness of breath, which resolved now after chest tube having placed. No cough. No phlegm. GASTROINTESTINAL: No nausea. No vomiting. No diarrhea. GENITOURINARY: No frequency. No dysuria. ALLERGIES: ALLERGIC TO PENICILLIN. SOCIAL HISTORY: He used to smoke, he quit 30 years ago. He does not drink alcohol. PAST MEDICAL HISTORY: Positive for congestive heart failure, coronary artery disease, status post stent placement, diabetes mellitus, and chronic renal insufficiency. PHYSICAL EXAMINATION: VITAL SIGNS: Blood pressure 130/67, temperature 98.4, heart rate 61 per minute, respiratory rate 16 per minute, and oxygen saturation 96%. HEART: Showed regular rhythm. No murmur or added sound. LUNGS: Clear bilaterally with decreased breath sounds on the left base. ABDOMEN: Soft. EXTREMITIES: No evidence of cyanosis or hematoma. IMAGING: The initial chest x-ray showed large left-sided pneumothorax with complete collapse of the left lung. The right lung was completely clear. Last chest x-ray showed left lung pneumonia versus re-expansion edema. No pneumothorax. Blood culture has been done, reports are pending. I am going to start the patient on Levaquin 500 mg IV daily also because of the pneumonia. FINAL IMPRESSION: 1. Left pneumothorax, status post chest tube placement. 2. Acute on chronic systolic congestive heart failure. 3. Hypoxic respiratory failure. 4. Chronic renal failure, stage 3. 5. Hypertension with chronic renal failure. 6. Hypertensive heart disease with congestive heart failure. 7. Uncontrolled diabetes mellitus, type 2 with chronic renal insufficiency. 8. Coronary artery disease, status post stent placement. 9. Obesity. 10. Left pneumonia, which is a community-acquired pneumonia. PLAN OF TREATMENT: We are going to continue current medication regimen. We are going to start him on Lasix 20 mg IV daily because of the edema that he has in the legs. Aspirin 81 mg daily. Continue with furosemide 20 mg daily. Continue monitoring blood sugar before meals and at bedtime with sliding scale medium dose. Continue Toprol-XL 50 mg daily, morphine 4 mg IV q.4 hours as needed for severe pain, and Zofran 4 mg IV as needed for nausea and vomiting, amiodarone 100 mg daily, aspirin 81 mg daily, lisinopril 40 mg daily. We are going to also start him on Levaquin, which is going to be 500 mg IV daily. Consults going to be Dr. Almaraz for Cardiology and also Dr. Stanley for Pulmonary. We are going to repeat a BMP tomorrow. MD VANESSA Sloan/IVELISSE /[id number]
--- NOTE | 2018-07-29 14:19 | Diagnostic Imaging Report ---
EXAM: CT Chest without contrast. INDICATION: Pneumothorax. COMPARISON: Chest radiograph 07/29/2018. TECHNIQUE: Chest was scanned utilizing a multidetector helical scanner from the lung apex through the level of the adrenal glands without administration of IV contrast. Coronal and sagittal reformations were obtained. Routine protocol was performed. RADIATION DOSE: Total DLP: 447.3 mGy*cm Estimated effective dose: (DLP x 0.014 x size factor) mSv Dose modulation, iterative reconstruction, and/or weight based adjustment of the mA/kV was utilized to reduce the radiation dose to as low as reasonably achievable. FINDINGS: LINES/ TUBES: There is a left basilar chest tube which terminates in the medial lower left lung. LUNGS AND AIRWAYS: There is multifocal groundglass and consolidative opacity throughout the left upper lobe. There is consolidative opacity in the left lower lobe. There is patchy opacity in the right lower lobe. Mild scattered smooth intralobular septal thickening. PLEURA: There is a small basilar predominant left-sided pneumothorax, measuring up to 1 cm in maximal thickness. Trace left apical pneumothorax component. Trace left pleural effusion. HEART AND MEDIASTINUM: The thyroid gland is normal. No mediastinal, hilar or axillary lymphadenopathy. There is mild cardiomegaly. There are extensive coronary at this chronic calcifications. UPPER ABDOMEN: Limited non-contrast views of the upper abdomen. There is gallbladder sludge. Extensive atherosclerotic vascular calcifications. Small hiatal hernia. BONES: No acute osseous abnormality. No suspicious lytic or blastic lesions. Degenerative changes of the visualized spine. SOFT TISSUES: There is subcutaneous gas in the left lower chest wall and left lateral upper abdominal soft tissues, likely related to chest tube placement. IMPRESSION: Left basilar chest tube with small basilar predominant left-sided pneumothorax, measuring up to 1 cm. Trace left pleural effusion. Multifocal groundglass and consolidative opacities in the left lung. Findings likely represent multifocal pneumonia with superimposed pulmonary edema. Signed by: Dr. David Hernández MD on 07/29/2018 2:15 PM
[2018-07-29] MEDS: HYDRALAZINE HCL 25 MG TAB PO SCH ×2 (15:00→20:17)
--- NOTE | 2018-07-29 15:39 | Consultation ---
DATE OF CONSULTATION: 07/29/2018 Cardiac Consultation REASON FOR CONSULTATION: Cardiac and Pulmonary status care. HISTORY OF PRESENT ILLNESS: A 77-year-old gentleman, who is known with hypertension, diet controlled diabetes mellitus, chronic renal disease, recurrent urinary tract infection, former smoker, coronary artery disease status post PCI and stenting of the right coronary artery in November 2017, chronic swelling and edema of the lower extremities. The patient was in his usual status of health until approximately a week ago. He started having severe shortness of breath, easy fatigability, unable to do much with worsening leg edema and hypoxemia. His condition deteriorated. He was seen by Dr. Ortega, sent to the emergency room because of his disease finding. Chest x- ray showed large left pneumothorax with complete collapse of the left lung. He had chest tube placement with that. He had expansion of the lung, but he got pulmonary edema in that lung. He was given diuretics, he was given medication and cardiac consultation was obtained. his breathing is better, he is having localized left-sided chest pain at the site of the chest tube. He said the shortness of breath by far is much better. Cardiac joshi, he denied having angina. He is taking his medications including Plavix and he is taking his ТАТЬЯНА inhibitor with beta-garrick. He should be on statin, but he does not recall any. REVIEW OF SYSTEMS: Done for all 14 systems, will be summarized for clarity. GENERAL: Failure to thrive, weakness, and poor appetite. HEENT: Congestion and cough. PULMONARY: Severe shortness of breath and cough. CARDIAC: Swelling of the lower extremities. No angina. Easy fatigability, shortness of breath, leg edema, orthopnea, and paroxysmal nocturnal dyspnea. GI: Poor appetite. No hematemesis. No melena. : Increased frequency of urination and history of repeated urinary tract infection. LOWER EXTREMITIES: Chronic lower extremity edema. MUSCULOSKELETAL: Aches and pain. NEUROLOGIC: No headache. No tingling. No tremors. No weakness. HEMATOLOGY: Easy bruising, but no bleeding. ENDOCRINE: Diet-controlled diabetes mellitus. Denied any polyuria or polydipsia. PAST MEDICAL HISTORY: 1. Diet-controlled diabetes mellitus. 2. Hypertension. 3. Chronic renal disease, class 3. 4. Coronary artery disease with history of cardiac catheterization on December 26, 2017, with stenting of distal RCA to PDA using 2.25 x 15 Resolute stent. At that time, cardiac catheterization showed 50% left main disease, 50% proximal and mid LAD and diffuse disease of the distal LAD, 50% diagonal disease, and 50% circumflex disease. 5. Diabetes mellitus. 6. Chronic renal insufficiency. 7. Recurrent urinary tract infection. 8. Ex-smoker. 9. Obstructive sleep apnea. 10. Appendectomy. 11. Prostate surgery twice. 12. Kidney stone. 13. Hypertension. FAMILY HISTORY: Mother at the age of 72 with myocardial infarction. Father at age 82 with myocardial infarction. SOCIAL HISTORY: He is . 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 He is ex-smoker, quit in 1994 where he smoked 4-pack a day for more than 30 years. He is not alcohol drinker. ALLERGIES: PENICILLIN. HOME MEDICATIONS: Plavix 75 mg daily, Aspirin 81 mg a day, Toprol XL 50 mg a day, Lipitor 20 mg a day, Hydaralazine 50 mg BID, amiodarone 200 mg a day, nitrofurantoin 100 mg twice a day, keppra 750mg bid, Jardiance 25 mg per day. PHYSICAL EXAMINATION: VITAL SIGNS: Height of 5 feet 9 inches, weight of 185 pounds. Blood pressure 110/70, heart rate of 70, respiratory rate of 20, and afebrile. HEENT: Pupils are reactive. NECK: No elevation of jugular venous pulsation. CHEST: Chest tube noted in place with decreased air entry in the left lung. HEART: PMI, fifth left intercostal space. Normal first and second heart sounds with ejection systolic murmur. ABDOMEN: Soft. There is no organomegaly. LOWER EXTREMITIES: Decreased feet pulse. Skin discoloration, evidence of chronic venous stasis and changes. NEUROLOGIC: Awake, alert, and oriented. No gross motor deficits. LABORATORY DATA: White blood cell count of 11.6, hemoglobin of 14.9, hematocrit 44%, and platelet count of 253,000. BNP of only 132. Sodium of 143, potassium 3.1, BUN 19, creatinine of 1.15, and glucose of 133. EKG; normal sinus rhythm, nonspecific ST changes. ASSESSMENT: 1. Spontaneous left pneumothorax, status post left chest tube placement. 2. Coronary artery disease, status post percutaneous coronary intervention on December 26, 2018. 3. Hypertension. 4. Chronic renal insufficiency. 5. Diabetes mellitus. 6. Venous stasis of the lower extremities and chronic changes. 7. Ex-heavy smoker. Cardiac joshi, we will adjust his medication to his blood pressure including lisinopril and Toprol. We will continue aspirin. We will hold on Plavix, not sure if the patient is taking it or he is off it, but regardless, we need to hold until Pulmonary evaluates the patient and formulate plan for any procedure if it is needed. We will follow the patient's progression with you. I would like thank you for your kind referral. We will adjust medication and treatment as needed. Questions are answered, case discussed with nursing staff. Medications are reviewed with nursing staff. We will follow the patient's progression with you. MD RAYNE Castro/IVELISSE /[id number] SAUL
--- NOTE | 2018-07-29 15:55 | NUR ---
Nutrition Screen Note RD Recommendation for Physician: -Consider 2000 ADA diet, cardiac diet. Plan of Care: RD following, monitoring for tolerance and adequacy Nutrition reason for involvement: Nutrition Risk Trigger-MST 2 Primary Diagnose(s): Respiratory distress, spontaneous pneumothorax PMH: congestive heart failure, coronary artery disease, status post stent placement, diabetes mellitus, and chronic renal insufficiency. Ht: 68 in Wt:184 lb BMI: 28.0 kg/m2 IBW:[address] Assessment: 07/29: 77 YOM admitted for respiratory distress, spontaneous pneumothorax. Pt was seen resting in bed with at bedside; observed 75% of pts breakfast meal completed at bedside. Pt speaks German only, used logistics vice president for visit. Pts reported that the pt does not like to follow any particular diet at home, he eats what he wants to eat. Pts reported the pt has a good appetite some days but does not eat much other days. Pts also stated that the pt did lose 65-70 lbs within the last 2 years intentionally. They had no further questions or concerns. Discussed pt in rounds-pt has a chest tube placed and is scheduled for CT today, 07/29. Chart reviewed. Labs and meds reviewed. Will continue to monitor. Current Diet: renal/ADA diet Malnutrition Evaluation (07/29) The patient does not meet criteria for a specified degree of malnutrition at this time. Will re-evaluate at follow-up as appropriate. Diet Education Needs Assessment: Diet education indicated, pt not appropriate at time of visit. Nutrition Care Level: low Signed: Hue Corbett, MS, RD, LD
[2018-07-29] MEDS: ATORVASTATIN 20 MG TAB PO SCH (20:25)
[2018-07-30] VITALS (9 sets, daily range): BP systolic 114–127; BP diastolic 53–85
[2018-07-30 05:43] LABS: BASOPHILS # (AUTO) 0.1 (0.0-0.1); BASOPHILS % 0.5 % (0.0-1.0); EOSINOPHILS # (AUTO) 0.2 (0.0-0.4); HEMATOCRIT 41.6 % (38.2-49.6); HEMOGLOBIN 13.2 g/dL (14.0-18.0); LYMPHOCYTES # (AUTO) 1.7 (1.0-3.2); LYMPHOCYTES % 18.1 % (18.0-39.1); MEAN CORPUSCULAR HGB CONC 31.7 g/dL (31-35); MONOCYTES # (AUTO) 1.4 (0.2-0.8); MONOCYTES % 14.4 % (4.4-11.3); NEUTROPHILS # (AUTO) 6.1 (2.1-6.9); NEUTROPHILS % 64.2 % (38.7-80.0); PLATELET COUNT 204 x10e3/uL (140-360); RED BLOOD COUNT 4.12 x10e6/uL (4.3-5.7); RED CELL DISTRIBUTION WIDTH 13.6 % (11.7-14.4)
[2018-07-30 06:07] LABS: ALANINE AMINOTRANSFERASE 12 IU/L (0-55); ALBUMIN 2.7 g/dL (3.5-5.0); ALBUMIN/GLOBULIN RATIO 0.8 (0.8-2.0); ALKALINE PHOSPHATASE 133 IU/L (40-150); ANION GAP 9.6 mmol/L (8-16); BLOOD UREA NITROGEN 21 mg/dL (7-26); BUN/CREATININE RATIO 19 (6-25); CALCIUM 8.9 mg/dL (8.4-10.2); CARBON DIOXIDE 33 mmol/L (22-29); CHLORIDE 102 mmol/L (98-107); CHOL/HDL RATIO 3.7 (3.9-4.7); CHOLESTEROL 112 MD/DL (0-199); CREATININE, SERUM 1.12 mg/dL (0.72-1.25); EST GLOMERULAR FILTRATION RATE > 60 ML/MIN (60-); GLUCOSE 108 mg/dL (74-118); HDL CHOLESTEROL 30 MG/DL (40-60); LDL CHOLESTEROL 61 MG/DL (60-130); POTASSIUM 3.6 mmol/L (3.5-5.1); SODIUM 141 mmol/L (136-145); TRIGLYCERIDES 105 MG/DL (0-149)
[2018-07-30] MEDS: INSULIN LISPRO 100 UNIT/1 ML 3ML VIAL SQ SCH ×4 (07:30→21:00)
[2018-07-30] MEDS: FUROSEMIDE INJ 10 MG/ML 2 ML VIAL IV SCH (08:16)
[2018-07-30] MEDS: ASPIRIN 81 MG ENTERIC COATED PO SCH (08:16)
[2018-07-30] MEDS: METOPROLOL SUCCINATE 25 MG TAB XL PO SCH (08:16)
[2018-07-30] MEDS: HYDRALAZINE HCL 25 MG TAB PO SCH ×3 (08:16→21:00)
[2018-07-30] MEDS: AMIODARONE HCL 200 MG TAB PO SCH (08:16)
[2018-07-30] MEDS: LEVETIRACETAM 500 MG TAB PO SCH ×2 (08:16→21:32)
[2018-07-30] MEDS ORDERED: METOPROLOL SUCCINATE 50 MG TAB XL PO SCH (09:00)
--- NOTE | 2018-07-30 09:44 | NUR ---
CHEST TUBE CLAMPED AT THIS TIME BY DR. SALVADOR. PT TO HAVE PORTABLE CHEST XRAY AT NOON TO REASSESS PNEUMOTHORAX. INSTRUCTED PT TO NOTIFY NURSE IF BECOMES SOB. PT VERBALIZED UNDERSTANDING.
[2018-07-30] MEDS: LEVOFLOXACIN 250MG/D5W 50ML 50 ML IV SCH (10:16)
[2018-07-30] MEDS: POTASSIUM CHLORIDE 20 MEQ TAB CR PO SCH (10:16)
--- NOTE | 2018-07-30 10:43 | Progress Note ---
DATE: 07/30/2018 Internal Medicine Progress Note SUBJECTIVE: The patient doing much better. PHYSICAL EXAMINATION: VITAL SIGNS: Blood pressure 126/63, temperature 98.6, heart rate 77 per minute, respiratory rate 17 per minute, oxygen saturation 97%. HEART: Showed regular rhythm. Normal S1, S2 sounds. LUNGS: Clear bilaterally. ABDOMEN: Soft. EXTREMITIES: Show no evidence of cyanosis, edema, or trauma. LABORATORY STUDIES: BMP; sodium 141, potassium 3.6, chloride 102, CO2 of 33, BUN 21, creatinine 1.12, glucose 108. CBC; white blood count 9.44, hemoglobin 13.2, hematocrit 41.6, platelet count 204,000. PT 13.6, PTT 28.8, INR 0.99. AST 17, ALT 12, total bilirubin 0.6, alkaline phosphatase 133. FINAL IMPRESSION: 1. Spontaneous pneumothorax on the left, status post chest tube placement. 2. Bilateral pneumonia. 3. Uncontrolled diabetes mellitus type 2 with diabetic nephropathy. 4. Hypertension with hypertensive nephropathy and hypertensive heart disease with congestive heart failure. 5. Acute on chronic systolic congestive heart failure. PLAN OF TREATMENT: We are going to continue with current IV antibiotic regimen, which includes Levaquin 500 mg IV daily. Continue amiodarone 100 mg daily. Continue aspirin 81 mg daily, Lipitor 20 mg daily. Continue with Lasix 20 mg IV daily. Continue monitoring blood sugar a.c. and at bedtime. Continue hydralazine 25 mg three times a day, Keppra 750 mg twice a day, metoprolol 25 mg daily, morphine 4 mg IV q.4 hours as needed for severe pain, Zofran 4 mg IV q.4 hours as needed for nausea and vomiting. MD VANESSA Sloan/IVELISSE /[id number]
--- NOTE | 2018-07-30 14:00 | NUR ---
CALLED RADIOLOGY FOR REPORT ON CXRAY WAS TOLD CXRAY WAS IN LINE TO BE READ SHOULD NOT BE MUCH LONGER BEFORE IT IS READ.
--- NOTE | 2018-07-30 14:25 | NUR ---
ORDER RECEIVED FOR [facility] EVAL. PT CALLED HIS AND SPOKE W PAULA AND MARIA LUISA HERCULES TO INTERPRET. STATES HE HAS BEEN TO [facility] BEFORE AND WOULD LIKE TO GO TO [facility] [address]. CHOICE LETTER WAS SIGNED AND MOT INITIATED AND SIGNED.
--- NOTE | 2018-07-30 15:00 | NUR ---
CALLED RADIOLOGY AGAIN FOR REPORT ON CXRAY WAS TOLD RADIOLOGIST WAS PLACING A LINE BUT OFFSITE RADIOLOGIST WOULD BE CALLED TO READ. AWAITING REPORT. PT SITTING UP IN CHAIR. RESPIRATIONS 20, EVEN AND NON LABORED ON 2LNC.
--- NOTE | 2018-07-30 15:27 | Diagnostic Imaging Report ---
EXAMINATION: CHEST SINGLE (PORTABLE) INDICATION: Pneumothorax ^PNEUMOTHORAX ^[id number] ^[id number] COMPARISON: 07/29/2018. FINDINGS: TUBES and LINES: None. LUNGS: Multifocal groundglass and consolidative opacities in the left lung. Findings likely represent multifocal pneumonia with superimposed pulmonary edema. PLEURA: Left basilar chest tube with small basilar predominant left-sided pneumothorax. Trace left pleural effusion. HEART AND MEDIASTINUM: The cardiomediastinal silhouette is unremarkable. BONES AND SOFT TISSUES: No acute osseous lesion. Soft tissues are unremarkable. UPPER ABDOMEN: No free air under the diaphragm. IMPRESSION: Left basilar chest tube with small basilar predominant left-sided pneumothorax. Trace left pleural effusion. Multifocal groundglass and consolidative opacities in the left lung. Findings likely represent multifocal pneumonia with superimposed pulmonary edema. Signed by: Dr. Srinath Metzger M.D. on 07/30/2018 3:24 PM
--- NOTE | 2018-07-30 15:49 | NUR ---
NOTIFIED DR. SALVADOR OF CXRAY RESULTS. NEW ORDERS RECEIVED FOR CXRAY AT 1900. NURSE TO CALL WITH RESULTS.
--- NOTE | 2018-07-30 19:28 | Diagnostic Imaging Report ---
EXAMINATION: CHEST SINGLE (PORTABLE) INDICATION: Respiratory distress. ^REASSESSMENT OF PNEUMOTHORAX, PLEASE READ STAT COMPARISON: July 30, 2018 at 1251 hours FINDINGS: TUBES and LINES: None. LUNGS: Multifocal groundglass and consolidative opacities in the left lung. Findings likely represent multifocal pneumonia with superimposed pulmonary edema. PLEURA: Left basilar chest tube. No definite pneumothorax is seen. Trace left pleural effusion. HEART AND MEDIASTINUM: The cardiomediastinal silhouette is unremarkable. BONES AND SOFT TISSUES: No acute osseous lesion. Soft tissues are unremarkable. UPPER ABDOMEN: No free air under the diaphragm. IMPRESSION: Left basilar chest tube. No definite pneumothorax is seen. Trace left pleural effusion. . Multifocal groundglass and consolidative opacities in the left lung. Findings likely represent multifocal pneumonia with superimposed pulmonary edema. Signed by: Dr. Srinath Metzger M.D. on 07/30/2018 7:25 PM
--- NOTE | 2018-07-30 20:02 | NUR ---
CALLED AND SPOKE WITH DR SALVADOR REGARDING LAST PATIENT'S XRAY RESULT, THE MD ORDERED ANOTHER XRAY IN THE AM AND HE NEEDS TO BE CALLED FOR THE RESULT IN THE MORNING. ORDER CARRIED OUT.
[2018-07-30] MEDS: ATORVASTATIN 20 MG TAB PO SCH (21:32)
[2018-07-31] VITALS (8 sets, daily range): BP systolic 116–142; BP diastolic 52–77
--- NOTE | 2018-07-31 05:30 | Diagnostic Imaging Report ---
Examination: Single AP view of the chest. COMPARISON: July 30, 2018 INDICATION: Follow-up pneumothorax DISCUSSION: Lines/tubes: None. Lungs: Improved aeration of the left lung with decreased opacifications. Pleura: No radiographic pneumothorax. Heart and mediastinum: The heart and the mediastinum are unremarkable. Bones and soft tissues: No acute bony abnormalities. IMPRESSION: Improved aeration of the left lung. No radiographic pneumothorax. Signed by: Dr. Felix Murcia M.D. on 07/31/2018 5:27 AM
[2018-07-31 06:03] LABS: ANION GAP 12.6 mmol/L (8-16); BLOOD UREA NITROGEN 22 mg/dL (7-26); BUN/CREATININE RATIO 20 (6-25); CALCIUM 9.1 mg/dL (8.4-10.2); CARBON DIOXIDE 30 mmol/L (22-29); CHLORIDE 102 mmol/L (98-107); CREATININE, SERUM 1.08 mg/dL (0.72-1.25); EST GLOMERULAR FILTRATION RATE > 60 ML/MIN (60-); GLUCOSE 110 mg/dL (74-118); POTASSIUM 3.6 mmol/L (3.5-5.1); SODIUM 141 mmol/L (136-145)
--- NOTE | 2018-07-31 06:38 | NUR ---
called and spoke with dr Burton regarding chest xray result this morning, no order obtained at this time.
[2018-07-31] MEDS: HYDRALAZINE HCL 25 MG TAB PO SCH ×3 (07:30→20:50)
[2018-07-31] MEDS: INSULIN LISPRO 100 UNIT/1 ML 3ML VIAL SQ SCH ×4 (07:58→20:50)
[2018-07-31] MEDS: FUROSEMIDE INJ 10 MG/ML 2 ML VIAL IV SCH (08:14)
[2018-07-31] MEDS: AMIODARONE HCL 200 MG TAB PO SCH (08:14)
[2018-07-31] MEDS: ASPIRIN 81 MG ENTERIC COATED PO SCH (08:14)
[2018-07-31] MEDS: METOPROLOL SUCCINATE 25 MG TAB XL PO SCH (08:14)
[2018-07-31] MEDS: POTASSIUM CHLORIDE 20 MEQ TAB CR PO SCH (08:14)
[2018-07-31] MEDS: LEVETIRACETAM 500 MG TAB PO SCH ×2 (08:14→20:49)
--- NOTE | 2018-07-31 08:15 | NUR ---
assisted pt to bathroom, amb well with walker. when pt returned to room, he dc tele and was attempting to put on his jeans. when asked, pt did not know where he was but was able to state name and . thought he was at [facility]. reoriented pt to place, assisted to bed and reconnected to tele and o2. o2 sats 88% on RA. pt currently resting in bed. nasal congestion, brian BARRETO.
--- NOTE | 2018-07-31 08:37 | NUR ---
dr chan on unit, family (daughter and ) also arrived. updated home medications. family stated pt previously had brain tumor and periodically will present with AMS. aware.
[2018-07-31] MEDS ORDERED: FLUTICASONE PROPIONATE NASAL SPRAY NS PRN (08:45)
[2018-07-31 09:00] LABS: BASOPHILS % 0.4 % (0.0-1.0); EOSINOPHILS # (AUTO) 0.3 (0.0-0.4); EOSINOPHILS % 3.1 % (0.0-6.0); HEMATOCRIT 43.3 % (38.2-49.6); HEMOGLOBIN 14.3 g/dL (14.0-18.0); LYMPHOCYTES # (AUTO) 1.3 (1.0-3.2); LYMPHOCYTES % 13.9 % (18.0-39.1); MEAN CORPUSCULAR HEMOGLOBIN 33.3 pg (28-32); MEAN CORPUSCULAR VOLUME 100.7 fL (81-99); MONOCYTES # (AUTO) 1.5 (0.2-0.8); MONOCYTES % 15.7 % (4.4-11.3); NEUTROPHILS # (AUTO) 6.3 (2.1-6.9); NEUTROPHILS % 66.3 % (38.7-80.0); PLATELET COUNT 189 x10e3/uL (140-360); RED CELL DISTRIBUTION WIDTH 13.6 % (11.7-14.4)
[2018-07-31 09:03] LABS: ALANINE AMINOTRANSFERASE 11 IU/L (0-55); ALBUMIN 2.7 g/dL (3.5-5.0); ALBUMIN/GLOBULIN RATIO 0.8 (0.8-2.0); ALKALINE PHOSPHATASE 121 IU/L (40-150); ANION GAP 14.5 mmol/L (8-16); BLOOD UREA NITROGEN 22 mg/dL (7-26); BUN/CREATININE RATIO 21 (6-25); CARBON DIOXIDE 28 mmol/L (22-29); CHLORIDE 101 mmol/L (98-107); CREATININE, SERUM 1.05 mg/dL (0.72-1.25); EST GLOMERULAR FILTRATION RATE > 60 ML/MIN (60-); GLUCOSE 110 mg/dL (74-118); POTASSIUM 3.5 mmol/L (3.5-5.1); SODIUM 140 mmol/L (136-145)
[2018-07-31] MEDS ORDERED: LIDOCAINE HCL 2% LOCAL 20 ML VIAL INJ ONE (10:45)
[2018-07-31] MEDS: LEVOFLOXACIN 250MG/D5W 50ML 50 ML IV SCH (11:00)
--- NOTE | 2018-07-31 11:05 | Progress Note ---
DATE: 07/31/2018 SUBJECTIVE: Mr. Levy is a 77-year-old man with history of coronary artery disease, status post stent, congestive heart failure, hypertension and that was admitted to the hospital with complaining of shortness of breath. He was found to have a spontaneous left pneumothorax, had a chest tube placed and doing much better. PHYSICAL EXAMINATION: GENERAL: Today, he has been a little confused and family states sometimes he gets confused. VITAL SIGNS: Temperature is 96.9, blood pressure is 128/71. HEART: Regular rate. LUNGS: Decreased breath sounds. ABDOMEN: Distended and soft. LABORATORY DATA: Today's lab work is pending. White count yesterday 9.44, hemoglobin 13.2, hematocrit 41.6. Potassium 3.6, creatinine 1.08, glucose 129 today. Blood cultures so far have been negative. Chest x-ray done today shows improved aeration of the left lung. No radiographic pneumothorax. ASSESSMENT: 1. Spontaneous left pneumothorax, status post chest tube placement. 2. Bilateral pneumonia. 3. Diabetes type 2 with nephropathy. 4. Hypertensive heart and chronic renal disease with congestive heart failure. 5. Acute on chronic systolic congestive heart failure. 6. Coronary artery disease, status post stent. PLAN: At present time, he is to continue IV antibiotics. Continue to monitor mental status. Continue ADA diet and sliding scale with insulin. Continue pain and nausea medications. All these were discussed with the patient and with family at bedside. All questions were answered to satisfaction. MD MATTEO Ng/JEANL /[id number]
--- NOTE | 2018-07-31 11:40 | NUR ---
attempted to admin insulin, pt family present and states he doesnt take insulin at home and doesnt want. refused
--- NOTE | 2018-07-31 13:08 | NUR ---
dr moore on unit, removed chest tube. pt vs stable, no c/o pain. family at bedside.
[2018-07-31] MEDS: ACETAMINOPHEN 325 MG TAB PO PRN (13:12)
--- NOTE | 2018-07-31 14:18 | Diagnostic Imaging Report ---
Examination: Single AP view of the chest. COMPARISON: 07/30/2018 INDICATION: Chest tube removal DISCUSSION: Interval removal of left chest tube. Very small left apical pneumothorax (air gap 5 mm). Residual linear opacity in the lung base may reflect contusion or atelectasis. Right lung remains clear. No new consolidations. Stable cardiomediastinal contour. No acute osseous abnormality. IMPRESSION: Very small (approximately 5 mm) left apical pneumothorax status post chest tube removal. Findings discussed with IMC[facility] RN Ms. Amaya at 1415 hours 07/31/18. Signed by: Dr. Dalton Yost M.D. on 07/31/2018 2:14 PM
--- NOTE | 2018-07-31 14:45 | NUR ---
dr moore was paged re cxr results, pt family also at bedside and concerned about LYNN, has cpap at home.
--- NOTE | 2018-07-31 15:09 | NUR ---
per MD, cpap may be contra to current pneumo, no cpap at this time. updated family at bedside and will continue to monitor resp.
[2018-07-31] MEDS: ATORVASTATIN 20 MG TAB PO SCH (20:49)
[2018-08-01] VITALS (8 sets, daily range): BP systolic 110–142; BP diastolic 59–74
--- NOTE | 2018-08-01 06:24 | Diagnostic Imaging Report ---
Examination: Single AP view of the chest. COMPARISON: July 31, 2018 INDICATION: Follow-up pneumothorax. DISCUSSION: Lines/tubes: None. Lungs: Mild increased left lower lobe atelectasis. Pleura: No visualized pneumothorax. Heart and mediastinum: The heart and the mediastinum are unremarkable. Bones and soft tissues: No acute bony abnormalities. IMPRESSION: 1. No visualized pneumothorax Signed by: Dr. Felix Murcia M.D. on 08/01/2018 6:21 AM
--- NOTE | 2018-08-01 07:08 | NUR ---
Report given to AM nurse,walking round done.
[2018-08-01] MEDS: INSULIN LISPRO 100 UNIT/1 ML 3ML VIAL SQ SCH ×4 (07:30→21:00)
[2018-08-01] MEDS: HYDRALAZINE HCL 25 MG TAB PO SCH ×3 (08:22→21:46)
[2018-08-01] MEDS: LEVETIRACETAM 500 MG TAB PO SCH ×2 (09:50→21:46)
[2018-08-01] MEDS: ASPIRIN 81 MG ENTERIC COATED PO SCH (09:50)
[2018-08-01] MEDS: AMIODARONE HCL 200 MG TAB PO SCH (09:50)
[2018-08-01] MEDS: FUROSEMIDE INJ 10 MG/ML 2 ML VIAL IV SCH (09:50)
[2018-08-01] MEDS: POTASSIUM CHLORIDE 20 MEQ TAB CR PO SCH (09:51)
[2018-08-01] MEDS: METOPROLOL SUCCINATE 25 MG TAB XL PO SCH (09:51)
[2018-08-01] MEDS: LEVOFLOXACIN 250MG/D5W 50ML 50 ML IV SCH (09:59)
[2018-08-01] MEDS: ACETAMINOPHEN 325 MG TAB PO PRN (19:51)
--- NOTE | 2018-08-01 19:51 | NUR ---
PATIENT C/O MILD PAIN TO THE LEFT SIDE WITH PAIN SCORE #4, TYLENOL GIVEN BUT THE PATIENT ONLY TOOK ONE OF THE TYLENOL AND REFUSED THE OTHER. NO RESPIRATORY DISTRESS OBSERVED, CALL LIGHT WITHIN EASY REACH.
[2018-08-01] MEDS: ATORVASTATIN 20 MG TAB PO SCH (21:46)
--- NOTE | 2018-08-01 22:23 | NUR ---
PATIENT REPOSITION IN BED FOR COMFORT, NO RESPIRATORY DISTRESS OBSERVED AND HE DENIES PAIN. CALL LIGHT WITHIN EASY REACH, HE'S INSTRUCTED TO CALL FOR ASSISTANCE NEEDED.
[2018-08-02] VITALS (7 sets, daily range): BP systolic 106–141; BP diastolic 59–89
--- NOTE | 2018-08-02 01:02 | NUR ---
PATIENT IS ASLEEP, HE'S EASY TO AROUSE. ATTEMPTED TO REPOSITION THE PATIENT, HE STATED "I'M OK FOR NOW".
--- NOTE | 2018-08-02 03:10 | NUR ---
ASSISTED PATIENT WITH ADLS, REPOSITION IN BED FOR COMFORT, HE DENIES PAIN. CALL LIGHT WITHIN EASY REACH, BED ALARM ON.
[2018-08-02 05:36] LABS: BASOPHILS # (AUTO) 0.1 (0.0-0.1); BASOPHILS % 0.7 % (0.0-1.0); EOSINOPHILS # (AUTO) 0.6 (0.0-0.4); HEMATOCRIT 40.4 % (38.2-49.6); HEMOGLOBIN 13.1 g/dL (14.0-18.0); LYMPHOCYTES # (AUTO) 1.7 (1.0-3.2); LYMPHOCYTES % 18.2 % (18.0-39.1); MEAN CORPUSCULAR HEMOGLOBIN 32.4 pg (28-32); MEAN CORPUSCULAR HGB CONC 32.4 g/dL (31-35); MONOCYTES # (AUTO) 1.3 (0.2-0.8); MONOCYTES % 14.1 % (4.4-11.3); NEUTROPHILS # (AUTO) 5.5 (2.1-6.9); NEUTROPHILS % 60.1 % (38.7-80.0); PLATELET COUNT 218 x10e3/uL (140-360); RED BLOOD COUNT 4.04 x10e6/uL (4.3-5.7); RED CELL DISTRIBUTION WIDTH 13.2 % (11.7-14.4)
--- NOTE | 2018-08-02 05:41 | Diagnostic Imaging Report ---
Examination: Single AP view of the chest. COMPARISON: August 01, 2018 INDICATION: Follow-up pneumothorax. DISCUSSION: Lines/tubes: None. Lungs: Stable left lower lobe opacity. Pleura: No visualized pneumothorax. Heart and mediastinum: The heart and the mediastinum are unremarkable. Bones and soft tissues: No acute bony abnormalities. IMPRESSION: 1. No visualized pneumothorax Signed by: Dr. Felix Murcia M.D. on 08/02/2018 5:38 AM
[2018-08-02 06:25] LABS: ALANINE AMINOTRANSFERASE 12 IU/L (0-55); ALBUMIN 2.5 g/dL (3.5-5.0); ALKALINE PHOSPHATASE 116 IU/L (40-150); BLOOD UREA NITROGEN 26 mg/dL (7-26); CALCIUM 9.1 mg/dL (8.4-10.2); CARBON DIOXIDE 32 mmol/L (22-29); GLUCOSE 114 mg/dL (74-118)
[2018-08-02 06:52] LABS: ALBUMIN/GLOBULIN RATIO 0.7 (0.8-2.0); ANION GAP 11.8 mmol/L (8-16); BUN/CREATININE RATIO 23 (6-25); CHLORIDE 101 mmol/L (98-107); CREATININE, SERUM 1.11 mg/dL (0.72-1.25); EST GLOMERULAR FILTRATION RATE > 60 ML/MIN (60-); POTASSIUM 3.8 mmol/L (3.5-5.1); SODIUM 141 mmol/L (136-145)
[2018-08-02] MEDS: INSULIN LISPRO 100 UNIT/1 ML 3ML VIAL SQ SCH ×4 (07:30→21:00)
[2018-08-02] MEDS: HYDRALAZINE HCL 25 MG TAB PO SCH ×3 (08:56→21:18)
[2018-08-02] MEDS: POTASSIUM CHLORIDE 20 MEQ TAB CR PO SCH (10:02)
[2018-08-02] MEDS: FUROSEMIDE INJ 10 MG/ML 2 ML VIAL IV SCH (10:02)
[2018-08-02] MEDS: ASPIRIN 81 MG ENTERIC COATED PO SCH (10:02)
[2018-08-02] MEDS: LEVETIRACETAM 500 MG TAB PO SCH ×2 (10:02→21:18)
[2018-08-02] MEDS: LEVOFLOXACIN 250MG/D5W 50ML 50 ML IV SCH (10:03)
[2018-08-02] MEDS: CLOPIDOGREL BISULFATE 75 MG TAB PO SCH (10:03)
[2018-08-02] MEDS: METOPROLOL SUCCINATE 25 MG TAB XL PO SCH (10:03)
--- NOTE | 2018-08-02 10:50 | NUR ---
right forearm PIV infiltrated during IV ABX infusion, redness and warmth noted at site, medication stopped and PIV removed, warm compress applied to site
--- NOTE | 2018-08-02 13:47 | NUR ---
patient assisted back to bed, redness to right forearm improved, call lay in reach and will continue to monitor
--- NOTE | 2018-08-02 16:30 | NUR ---
patient refusing iv access, placed called to daughter to inform of patients refusal, informed she will be up to hospital shortly
--- NOTE | 2018-08-02 18:40 | NUR ---
attempted iv access x3 by charge nurse, unsuccessful and oncoming charge nurse informed, family at bedside and updated on plan
--- NOTE | 2018-08-02 19:15 | NUR ---
Received patient from day nurse, patient is alert and oriented x 2, introduced self to patient, safety and fall precautions maintained as per hospital protocol: bed in lowest position and locked, needed items beside bed and call lay placed close to patient, patient instructed to use it to call nurses for help, verbalized understanding. patient is currently stable, will continue to monitor.
[2018-08-02] MEDS: ATORVASTATIN 20 MG TAB PO SCH (21:18)
[2018-08-03 00:10] VITALS: BP 127/65
[2018-08-03 04:00] VITALS: BP 142/68
--- NOTE | 2018-08-03 06:15 | Diagnostic Imaging Report ---
Examination: Single AP view of the chest. COMPARISON: August 02, 2018 INDICATION: Follow-up pneumothorax. DISCUSSION: Lines/tubes: None. Lungs: Stable left lower lobe opacity. Pleura: No visualized pneumothorax. Heart and mediastinum: The heart and the mediastinum are unremarkable. Bones and soft tissues: No acute bony abnormalities. IMPRESSION: 1. No visualized pneumothorax Signed by: Dr. Felix Murcia M.D. on 08/03/2018 6:12 AM
[2018-08-03 06:31] LABS: BASOPHILS # (AUTO) 0.1 (0.0-0.1); BASOPHILS % 1.1 % (0.0-1.0); EOSINOPHILS # (AUTO) 0.4 (0.0-0.4); EOSINOPHILS % 5.8 % (0.0-6.0); HEMATOCRIT 42.6 % (38.2-49.6); HEMOGLOBIN 13.8 g/dL (14.0-18.0); LYMPHOCYTES # (AUTO) 1.7 (1.0-3.2); LYMPHOCYTES % 21.9 % (18.0-39.1); MEAN CORPUSCULAR HEMOGLOBIN 31.9 pg (28-32); MEAN CORPUSCULAR HGB CONC 32.4 g/dL (31-35); MEAN CORPUSCULAR VOLUME 98.4 fL (81-99); MONOCYTES % 13.6 % (4.4-11.3); NEUTROPHILS # (AUTO) 4.3 (2.1-6.9); NEUTROPHILS % 56.8 % (38.7-80.0); PLATELET COUNT 194 x10e3/uL (140-360); RED BLOOD COUNT 4.33 x10e6/uL (4.3-5.7); RED CELL DISTRIBUTION WIDTH 13.1 % (11.7-14.4)
[2018-08-03 07:01] LABS: ANION GAP 10.1 mmol/L (8-16); BLOOD UREA NITROGEN 19 mg/dL (7-26); BUN/CREATININE RATIO 21 (6-25); CALCIUM 8.9 mg/dL (8.4-10.2); CARBON DIOXIDE 30 mmol/L (22-29); CHLORIDE 104 mmol/L (98-107); CREATININE, SERUM 0.92 mg/dL (0.72-1.25); EST GLOMERULAR FILTRATION RATE > 60 ML/MIN (60-); GLUCOSE 107 mg/dL (74-118); POTASSIUM 4.1 mmol/L (3.5-5.1); SODIUM 140 mmol/L (136-145)
[2018-08-03 07:29] VITALS: BP_SYST 141; BP_DIAS 65; BP_DIAS 68
[2018-08-03] MEDS: INSULIN LISPRO 100 UNIT/1 ML 3ML VIAL SQ SCH ×3 (07:30→16:30)
--- NOTE | 2018-08-03 07:36 | NUR ---
Patient endorsed to next shift for continuity of care.
[2018-08-03 08:23] VITALS: BP 141/65
[2018-08-03 09:00] VITALS: BP 141/65
[2018-08-03] MEDS ORDERED: FUROSEMIDE 40 MG TAB PO SCH (09:00)
[2018-08-03] MEDS ORDERED: LEVOFLOXACIN 250 MG TAB PO SCH (09:00)
[2018-08-03] MEDS: CLOPIDOGREL BISULFATE 75 MG TAB PO SCH (09:28)
[2018-08-03] MEDS: POTASSIUM CHLORIDE 20 MEQ TAB CR PO SCH (09:28)
[2018-08-03] MEDS: ASPIRIN 81 MG ENTERIC COATED PO SCH (09:28)
[2018-08-03] MEDS: LEVETIRACETAM 500 MG TAB PO SCH (09:28)
[2018-08-03] MEDS: HYDRALAZINE HCL 25 MG TAB PO SCH ×2 (09:29→15:00)
[2018-08-03] MEDS: METOPROLOL SUCCINATE 25 MG TAB XL PO SCH (09:30)
--- NOTE | 2018-08-03 11:25 | Progress Note ---
DATE: Internal Medicine Progress Note SUBJECTIVE: The patient is doing well now. The chest tube has been removed. PHYSICAL EXAMINATION: VITAL SIGNS: Blood pressure 141/65, temperature 99.7, heart rate 65 per minute, respiratory rate 20 per minute, oxygen saturation 100%. HEART: Showed regular rhythm. Normal S1, S2 sounds. LUNGS: Clear bilaterally. ABDOMEN: Soft. EXTREMITIES: Show no evidence of cyanosis, edema, or trauma. LABORATORY STUDIES: CBC, white blood count 7.58, hemoglobin 13.8, hematocrit 42.6, platelet count 184, 000. BMP; sodium 140, potassium 4.1, chloride 104, CO2 of 30, BUN 19, creatinine 0.82, glucose 107. Lactic acid was done also in the past, which was 14.8. AST 19, ALT 12. Alkaline phosphatase 116, total protein 6.2, albumin 2.5, globulin 3.7. FINAL IMPRESSION: 1. Spontaneous left pneumothorax which is resolved. 2. Left lower lobe pneumonia. 3. Controlled diabetes mellitus type 2. 4. Hypertension. 5. Coronary artery disease, status post PTCA. PLAN OF TREATMENT: We are going to continue with Tylenol 650 mg q.4 hours as needed for pain or fever, aspirin 81 mg daily, Lipitor 20 mg daily, Plavix 75 mg daily, Flonase 1 inhalation daily, furosemide he is taking 20 mg IV daily, Humalog before meals and at bedtime according to the sliding scale, hydralazine 25 mg three times a day, Keppra 750 mg twice a day. Levaquin he is taking 250 mg p.o. once a day, metoprolol 25 mg daily, morphine 4 mg IV q.4 hours as needed, Zofran 4 mg IV q.4 hours as needed, potassium chloride 20 mEq daily. The patient has been evaluated to go to a long-term care hospital, but now he might not meet criteria. Time spent 45 minutes. MD VANESSA Sloan/IVELISSE /[id number]
[2018-08-03] MEDS: ACETAMINOPHEN 325 MG TAB PO PRN ×2 (12:31→16:41)
--- NOTE | 2018-08-03 13:02 | NUR ---
LONG-TERM ACUTE CARE DISCHARGE INFORMATION PATIENT HAS BEEN ACCEPTED TO: NAME: [facility] ADDRESS: [address], [place] [address] ACCEPTING OUTREACH DIRECTOR: KYLE KWON, STATE INSPECTOR ACCEPTING MD: DR. HAYES ROOM: ICU 4 NURSE CALL REPORT TO: [phone] THE FOLLOWING DOCUMENTS MUST ACCOMPANY PATIENT FOR TRANSFER: COPIED CHART: [facility] MOT INFO RECEIVED FROM: [facility] ORDER/RECONCILED MED LIST: [facility]IST [id number] DNR: N/A
[2018-08-03 16:09] VITALS: BP 118/66
--- NOTE | 2018-08-03 16:44 | NUR ---
DISCHARGED TO [facility]. VIA EMS IN STRETCHER WITH OXYGEN.
--- NOTE | 2018-08-03 16:57 | Discharge Summary ---
HOSPITAL COURSE: A 77-year-old male with past medical history positive for hypertension, diabetes, coronary artery disease. Apparently, he was in a cruise and family noticed he was getting very short of breath, could not get out of his wheelchair, came to my office. Oxygen saturation was 88% in sitting position at rest. The patient was noticed to have decreased breath sounds on the left lung, sent immediately to the hospital. He was found to have complete pneumothorax on the left thorax. Chest tube was placed immediately in the emergency room. The chest tube expanded. He was found also found to have pneumonia, started on IV antibiotics. The patient is going to be transferred to [facility] for continuation of the IV antibiotics and optimization of cardiopulmonary status. PHYSICAL EXAMINATION: HEART: Showed regular rhythm. Normal S1, S2 sounds. LUNGS: Clear bilaterally. ABDOMEN: Soft. FINAL IMPRESSION: 1. Respiratory failure secondary to spontaneous pneumothorax. 2. Left lower lobe pneumonia. 3. Hypertension. 4. Uncontrolled diabetes mellitus type 2 with diabetic nephropathy. 5. Coronary artery disease, status post stent. PLAN OF TREATMENT: Continue antibiotic therapy. Continue Lasix. Continue rest of the medication regimen. Continue diabetic diet. The patient is going to be transferred to [facility] for continuation of the antibiotic and optimization of cardiopulmonary status. MD VANSESA Sloan/IVELISSE /[id number]
== END 2018-08-03 16:44 | DRG 199 ==
LOC: ER 11:10 → ERHOLD 15:32 → IMCU 21:37
PROVIDERS: ADMIT Internal Medicine; ATTEND Internal Medicine
PROC: 0W9B30Z Drainage of Left Pleural Cavity with Drainage Device, Percutaneous Approach (ICD-10-PCS; principal; 2018-07-28)
DX: J93.83 Other pneumothorax (principal); I50.21 Acute systolic (congestive) heart failure; I50.23 Acute on chronic systolic (congestive) heart failure; J96.01 Acute respiratory failure with hypoxia; J18.9 Pneumonia, unspecified organism; I13.0 Hypertensive heart and chronic kidney disease with heart failure and stage 1 through stage 4 chronic kidney disease, or unspecified chronic kidney disease; E11.65 Type 2 diabetes mellitus with hyperglycemia; E11.22 Type 2 diabetes mellitus with diabetic chronic kidney disease; N18.3 Chronic kidney disease, stage 3 (moderate); I25.10 Atherosclerotic heart disease of native coronary artery without angina pectoris; Z95.5 Presence of coronary angioplasty implant and graft; E11.21 Type 2 diabetes mellitus with diabetic nephropathy; J44.9 Chronic obstructive pulmonary disease, unspecified; Z77.090 Contact with and (suspected) exposure to asbestos; Z79.4 Long term (current) use of insulin; G47.33 Obstructive sleep apnea (adult) (pediatric); Z87.891 Personal history of nicotine dependence
CPT/HCPCS: 36415; 71045; 71046; 71250; 80048; 80053; 80061; 81001; 82550; 82553; 82948; 83605; 83735; 83880; 84100; 84443; 84484; 85025; 85610; 85730; 87040; 87400; 93005; 93306; 96372; 97139; 99284; J1940; J1956; J2001; J2270; J2405

== ENCOUNTER 2018-09-28 12:45 | Inpatient (IN) | payer BC, MEDICARE ==
[~2018-09-28] VITALS: Ht 172.7 cm; Wt 80.7 kg
[~2018-09-28 12:45] MED LIST changes: +AMIODARONE HCL200 MG PO; +CLOPIDOGREL75 MG PO; +HYDRALAZINE HCL25 MG PO; +Jardiance PO; +LASIX20 MG PO; +LEVETIRACETAM500 MG PO; +VENLAFAXINE HCL75 MG PO; +atrovastatin PO
[2018-09-28] MEDS ORDERED: SODIUM CHLORIDE 0.9% 1000ML 1,000 ML IV STA (12:57)
[2018-09-28 13:54] LABS: BASOPHILS % 0.4 % (0.0-1.0); EOSINOPHILS # (AUTO) 0.1 (0.0-0.4); EOSINOPHILS % 1.1 % (0.0-6.0); HEMOGLOBIN 13.9 g/dL (14.0-18.0); LYMPHOCYTES # (AUTO) 0.7 (1.0-3.2); LYMPHOCYTES % 7.2 % (18.0-39.1); MEAN CORPUSCULAR HEMOGLOBIN 32.6 pg (28-32); MEAN CORPUSCULAR HGB CONC 33.1 g/dL (31-35); MEAN CORPUSCULAR VOLUME 98.6 fL (81-99); MONOCYTES # (AUTO) 1.5 (0.2-0.8); MONOCYTES % 16.1 % (4.4-11.3); NEUTROPHILS # (AUTO) 7.1 (2.1-6.9); NEUTROPHILS % 74.9 % (38.7-80.0); PLATELET COUNT 145 x10e3/uL (140-360); RED BLOOD COUNT 4.26 x10e6/uL (4.3-5.7); RED CELL DISTRIBUTION WIDTH 13.6 % (11.7-14.4)
[2018-09-28 13:57] LABS: BILIRUBIN,URINE NEGATIVE (NEGATIVE); CLARITY,URINE CLEAR (CLEAR); COLOR,URINE YELLOW (YELLOW); KETONES,URINE NEGATIVE (NEGATIVE); LEUKOCYTE ESTERASE ,URINE NEGATIVE (NEGATIVE); NITRITE,URINE NEGATIVE (NEGATIVE); PROTEIN,URINE DIPSTICK 2+ (NEGATIVE); URINE UROBILINOGEN 1 mg/dL (0.2 - 1)
[2018-09-28 14:05] LABS: INR 1.06; PROTHROMBIN TIME 14.3 seconds (11.9-14.5)
--- NOTE | 2018-09-28 14:05 | Diagnostic Imaging Report ---
History:Low oxygen saturation and confusion, started today Comparison studies:None Technique: Axial images were obtained from the skull base to the vertex. Coronal and sagittal images reconstructed from the axial data. Intravenous contrast: None Dose modulation, iterative reconstruction, and/or weight based adjustment of the mA/kV was utilized to reduce the radiation dose to as low as reasonably achievable. Findings: Scalp/skull: Left frontal craniotomy changes with underlying dural thickening. Extra-axial spaces: No masses. No fluid collections. Brain sulci: Mildly prominent. Ventricles: Mild compensatory dilatation. No hydrocephalus. Parenchyma: Scattered hypodensities in the supratentorial white matter are small vessel ischemic changes. Left anterior frontal cortical based hypodensity with volume loss. No masses, hemorrhage, acute or chronic cortical vascular insults. Sellar/suprasellar region: No abnormalities. Craniocervical junction: Patent foramen magnum. No Chiari one malformation. Incidental findings: Atherosclerotic calcifications in the carotid siphons . Impression: No acute abnormalities. Chronic findings: 1. Mild generalized volume loss. 2. Moderate supratentorial white matter small vessel ischemic changes. 3. Left frontal craniotomy changes with underlying dural thickening and encephalomalacia Signed by: DR Juventino Moran M.D. on 09/28/2018 2:02 PM
[2018-09-28 14:06] LABS: PARTIAL THROMBOPLASTIN TIME 26.8 seconds (23.8-35.5)
[2018-09-28 14:12] LABS: ALBUMIN 3.7 g/dL (3.5-5.0); ALBUMIN/GLOBULIN RATIO 1.1 (0.8-2.0); ANION GAP 12.8 mmol/L (8-16); CALCIUM 9.3 mg/dL (8.4-10.2); CREATININE, SERUM 1.3 mg/dL (0.72-1.25); POTASSIUM 3.8 mmol/L (3.5-5.1)
[2018-09-28 14:18] LABS: AMORPHOUS SEDIMENT,URINE MODERATE (FEW); BACTERIA,URINE FEW /HPF; HYALINE CASTS 0-1 (0-1)
[2018-09-28 14:20] LABS: CREATINE KINASE MB 0.8 ng/mL (0-5.0)
--- NOTE | 2018-09-28 14:22 | Diagnostic Imaging Report ---
Examination: Single AP view of the chest. COMPARISON: None. INDICATION: Cough DISCUSSION: Lines/tubes: None. Lungs: New right middle lobe opacity. Pleura: No pleural effusion or pneumothorax. Heart and mediastinum: The heart and the mediastinum are unremarkable. Bones and soft tissues: No acute bony abnormalities. IMPRESSION: New right middle lobe opacity may reflect pneumonia. Signed by: Dr. Felix Murcia M.D. on 09/28/2018 2:18 PM
[2018-09-28 14:36] LABS: STREPTOCOCCUS GRP A ANTIGEN NEGATIVE (NEGATIVE)
[2018-09-28 14:46] LABS: INFLUENZAE A&B ANTIGEN (RAPID) NEGATIVE (NEGATIVE)
[2018-09-28] MEDS: AZITHROMYCIN 500MG/NS 250 ML 250 ML IV SCH (16:28)
--- NOTE | 2018-09-28 17:05 | NUR ---
RECD PT FROM ER VIA STRETCHER AAOX2,TONGAN SPEAKIMG ONLY,IV ANTIBIOTIC INFUSING TO LT AC PATENT,DENIES PAIN ,HOB ELEVATED ,CALL VIGIL IN REACH ,O2 2L NC ON,INSTRUCTED PT TO CALL FOR ASSISTANCE,BED ALARM ON
[2018-09-28 17:11] VITALS: BP 174/84
[2018-09-28] MEDS: CEFTRIAXONE SOD 1 GM/NS 50 ML 50 ML IV SCH (17:30)
[2018-09-28 19:00] VITALS: BP_SYST 140; BP_SYST 174; BP_DIAS 70; BP_DIAS 84
--- NOTE | 2018-09-28 19:00 | NUR ---
patient received awake, alert, lying quietly in bed. hob elevated 40 degrees. no c/o pain noted. respirations even and unlabored. 02/2l/nc in use. pm assessment complete. patient instructed to call for assistance when needed.
[2018-09-28 19:30] VITALS: BP 140/70
[2018-09-28 20:00] VITALS: BP 140/70
[2018-09-28] MEDS: ALBUTEROL SULF 0.083% NEB SOLN 3 ML NEB NEB SCH (20:00)
[2018-09-28] MEDS: IPRATROPIUM BROMIDE 0.02% 2.5 ML NEB NEB SCH (20:00)
[2018-09-28 22:27] LABS: CREATINE KINASE MB 0.7 ng/mL (0-5.0)
[2018-09-29] VITALS (7 sets, daily range): BP systolic 135–164; BP diastolic 73–84
[2018-09-29] MEDS: ALBUTEROL SULF 0.083% NEB SOLN 3 ML NEB NEB SCH ×6 (00:30→19:30)
[2018-09-29] MEDS: IPRATROPIUM BROMIDE 0.02% 2.5 ML NEB NEB SCH ×6 (00:30→19:30)
--- NOTE | 2018-09-29 02:00 | NUR ---
patient oob to shower with assistance. bruising noted to left posterior shoulder and left arm. drk discolored skin noted to bilateral lower legs. skin care provided after shower.
[2018-09-29] MEDS: CEFTRIAXONE SOD 1 GM/NS 50 ML 50 ML IV SCH ×2 (03:45→16:00)
[2018-09-29 07:02] LABS: BASOPHILS % 0.5 % (0.0-1.0); EOSINOPHILS # (AUTO) 0.1 (0.0-0.4); EOSINOPHILS % 1.3 % (0.0-6.0); HEMATOCRIT 41.3 % (38.2-49.6); HEMOGLOBIN 13.3 g/dL (14.0-18.0); LYMPHOCYTES % 15.6 % (18.0-39.1); MEAN CORPUSCULAR HGB CONC 32.2 g/dL (31-35); MEAN CORPUSCULAR VOLUME 99.3 fL (81-99); MONOCYTES # (AUTO) 1.3 (0.2-0.8); NEUTROPHILS # (AUTO) 3.9 (2.1-6.9); NEUTROPHILS % 62.1 % (38.7-80.0); PLATELET COUNT 129 x10e3/uL (140-360); RED BLOOD COUNT 4.16 x10e6/uL (4.3-5.7); RED CELL DISTRIBUTION WIDTH 13.7 % (11.7-14.4)
[2018-09-29 07:25] LABS: ALBUMIN 3.2 g/dL (3.5-5.0); ANION GAP 12.7 mmol/L (8-16); CREATININE, SERUM 1.21 mg/dL (0.72-1.25); POTASSIUM 3.7 mmol/L (3.5-5.1)
--- NOTE | 2018-09-29 07:30 | NUR ---
pt up in bed sleeping no distress noted.bed alarm on
[2018-09-29] MEDS ORDERED: FUROSEMIDE INJ 10 MG/ML 4 ML VIAL IV SCH (09:00)
[2018-09-29] MEDS ORDERED: SODIUM CHLORIDE 0.9% 250ML 250 ML ONE (14:46)
[2018-09-29] MEDS: HYDRALAZINE HCL 25 MG TAB PO SCH ×2 (15:00→21:00)
[2018-09-29] MEDS: AZITHROMYCIN 500MG/NS 250 ML 250 ML IV SCH (16:30)
[2018-09-29] MEDS: AMIODARONE HCL 200 MG TAB PO SCH (17:00)
[2018-09-29] MEDS: LEVETIRACETAM 500 MG TAB PO SCH (17:00)
[2018-09-29] MEDS: VENLAFAXINE HCL 75 MG TAB PO SCH (17:00)
[2018-09-29] MEDS: CLOPIDOGREL BISULFATE 75 MG TAB PO SCH (17:00)
--- NOTE | 2018-09-29 18:21 | NUR ---
PT SLEEPING NO DISTRESS NTOED,DENIES PAIN,O2 2L NC IN PLACE.
--- NOTE | 2018-09-29 19:00 | NUR ---
patient received awake, alert, lying quietly in bed. no c/o pain noted. 02/2l/nc in use. respirations even and unlabored. pm assessment complete. patient instructed to call for assistance when needed.
[2018-09-29] MEDS: ATORVASTATIN 20 MG TAB PO SCH (21:00)
[2018-09-29] MEDS: DOCUSATE SODIUM 100 MG CAP PO SCH (21:00)
--- NOTE | 2018-09-29 21:55 | History and Physical ---
HISTORY OF PRESENT ILLNESS: A 77-year-old male with past medical history positive for diabetes, obesity, coronary artery disease, who came to the clinic complaining of shortness of breath. He was found to have right middle lobe pneumonia, transferred to the hospital, admitted with IV antibiotic. His oxygen saturation was 88% when he came to the hospital. REVIEW OF SYSTEMS: CARDIOVASCULAR: No chest pain or palpitation. RESPIRATORY: He did have shortness of breath and cough. GASTROINTESTINAL: No nausea or vomiting. No diarrhea. GENITOURINARY: No frequency. No dysuria. ALLERGIES: HE IS ALLERGIC TO PENICILLIN. SOCIAL HISTORY: He used to smoke. He quit smoking 40 years ago. He does not drink alcohol. PAST MEDICAL HISTORY: Diabetes, obesity, coronary artery disease, and chronic renal failure. PHYSICAL EXAMINATION: VITAL SIGNS: Blood pressure 135/75, temperature 38.4, heart rate 71 per minute, respiratory rate 18 per minute, oxygen saturation 93%. HEART: Showed regular rhythm. Normal S1 and S2 sound. LUNGS: Show crackles in both lungs. ABDOMEN: Soft. EXTREMITIES: Show no evidence of cyanosis or hematoma. IMAGING STUDIES: Chest x-ray showed right middle lobe pneumonia. LABORATORY DATA: On the BMP; sodium 142, potassium 3.7, chloride 105, CO2 of 28, BUN 20, creatinine 1.21, glucose 92. On CBC; white blood count 6.29, hemoglobin 13.3, hematocrit 41.3, and platelet count of 129,000. PT 14.3, INR 1.06, PTT 26.8. AST 27, ALT 23, total bilirubin 0.5, alkaline phosphatase 107. IMPRESSION: 1. Right middle lobe pneumonia. 2. Hypoxemic respiratory failure. 3. 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 4. Obesity. 5. Coronary artery disease. PLAN OF TREATMENT: Continue albuterol and Atrovent q.4 hours. Continue Zithromax 250 mg IV daily, ceftriaxone 2 g IV twice a day, furosemide 40 mg daily. Resume home medications including Jardiance. Continue diabetic and renal diet. I am going to order physical and occupational therapy. The patient will qualify to go to [facility]. MD VANESSA Sloan/MODL /[id number]
[2018-09-30] VITALS (8 sets, daily range): BP systolic 126–164; BP diastolic 62–77
[2018-09-30] MEDS: IPRATROPIUM BROMIDE 0.02% 2.5 ML NEB NEB SCH ×7 (03:00→23:00)
[2018-09-30] MEDS: ALBUTEROL SULF 0.083% NEB SOLN 3 ML NEB NEB SCH ×7 (03:00→23:00)
[2018-09-30] MEDS: CEFTRIAXONE SOD 1 GM/NS 50 ML 50 ML IV SCH ×2 (03:45→15:18)
[2018-09-30 06:29] LABS: ANION GAP 12.5 mmol/L (8-16); CALCIUM 8.7 mg/dL (8.4-10.2); CREATININE, SERUM 1.19 mg/dL (0.72-1.25); POTASSIUM 3.5 mmol/L (3.5-5.1)
--- NOTE | 2018-09-30 07:34 | NUR ---
PATIENT IN BED WITH HEAD OF BED ELEVATED RECEIVING NEB TREATMENT, NO DISTRESS NOTED. BRUISES TO BILATERAL LOWER EXTREMITIES. BED IN LOWER POSITION, CALL LIGHT AT REACH.
[2018-09-30] MEDS: JARDIANCE 25MG PO SCH (09:00)
[2018-09-30] MEDS: HYDRALAZINE HCL 25 MG TAB PO SCH ×3 (09:23→21:00)
[2018-09-30] MEDS: CLOPIDOGREL BISULFATE 75 MG TAB PO SCH (09:23)
[2018-09-30] MEDS: VENLAFAXINE HCL 75 MG TAB PO SCH (09:23)
[2018-09-30] MEDS: FUROSEMIDE 20 MG TAB PO SCH (09:23)
[2018-09-30] MEDS: AMIODARONE HCL 200 MG TAB PO SCH (09:23)
[2018-09-30] MEDS: METOPROLOL SUCCINATE 50 MG TAB XL PO SCH (09:23)
[2018-09-30] MEDS: LEVETIRACETAM 500 MG TAB PO SCH ×2 (09:23→17:29)
[2018-09-30] MEDS: DOCUSATE SODIUM 100 MG CAP PO SCH ×2 (09:23→21:00)
--- NOTE | 2018-09-30 12:25 | NUR ---
SPUTUM SPECIMEN COLLECTED AND SENT TO THE LAB.
--- NOTE | 2018-09-30 15:30 | NUR ---
RECEIVED ORDER FOR LTAC. MET W THE PT AND STRATEGIC PARTNERSHIP SPECIALISTBELKIS TO DISCUSS CHOICE. PT STATES HE WOULD LIKE TO GO TO [facility]. CHOICE LETTER WAS SIGNED. COPY TO PT AND COPY TO CHART. MOT WAS INITIATED. [facility] NOTIFIED; LIASON.
--- NOTE | 2018-09-30 15:35 | Progress Note ---
DATE: Internal Medicine Progress Note SUBJECTIVE: The patient is doing better. PHYSICAL EXAMINATION: VITAL SIGNS: Blood pressure 141/72, temperature 95.9, heart rate 56 per minute, respiratory rate 19 per minute, oxygen saturation 97%. HEART: Showed regular rhythm. Normal S1, S2 sound. LUNGS: Clear bilaterally. ABDOMEN: Soft. LABORATORY DATA: BMP; sodium 138, potassium 3.5, chloride 101, CO2 28, BUN 27, creatinine 1.19, glucose 95. On CBC; white blood count 6.29, hemoglobin 13.3, hematocrit 41.3, platelet count 129,000. PT 14.3, INR 1.06, PTT 26.8. AST 27, ALT 23, total bilirubin 0.5, alkaline phosphatase 107. FINAL IMPRESSION: 1. Right middle lobe pneumonia. 2. Hypoxic respiratory failure, which is resolved. 3. 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 4. Obesity. 5. Coronary artery disease. PLAN OF TREATMENT: Continue oxygen. Continue albuterol and Atrovent q.4 hours around the clock, Zithromax 250 mg IV daily, ceftriaxone 2 g IV twice a day, hydralazine 50 mg three times a day, Lipitor 20 mg at bedtime, amiodarone 200 mg daily, Keppra 750 mg twice a day. Continue Plavix 75 mg daily, metoprolol 50 mg daily, Colace 100 mg twice a day, furosemide 20 mg daily, Effexor 75 mg daily. The patient is going to be transferred to [facility] MD VANESSA Sloan/IVELISSE /[id number]
--- NOTE | 2018-09-30 16:18 | NUR ---
PATIENT ASSISTED WITH SHOWER AND LINEN CHANGED. BACK IN BED WITH CALL LIGHT AT REACH.
[2018-09-30] MEDS: AZITHROMYCIN 500MG/NS 250 ML 250 ML IV SCH (16:30)
--- NOTE | 2018-09-30 19:00 | NUR ---
patient received awake, alert, lying quietly in bed. no c/o pain noted. pm assessment complete. patient instructed to call for assistance when needed.
[2018-09-30] MEDS: ATORVASTATIN 20 MG TAB PO SCH (21:00)
[2018-10-01] VITALS (8 sets, daily range): BP systolic 109–156; BP diastolic 58–74
--- NOTE | 2018-10-01 | NUR ---
patient appears to be resting quietly. no c/o pain noted. CBI continues. urine remains clear to light pink in color.
[2018-10-01] MEDS: CEFTRIAXONE SOD 1 GM/NS 50 ML 50 ML IV SCH ×2 (03:45→15:22)
[2018-10-01] MEDS: IPRATROPIUM BROMIDE 0.02% 2.5 ML NEB NEB SCH ×6 (03:45→23:05)
[2018-10-01] MEDS: ALBUTEROL SULF 0.083% NEB SOLN 3 ML NEB NEB SCH ×6 (03:45→23:05)
--- NOTE | 2018-10-01 07:30 | NUR ---
PATIENT SITTING UP IN BED TALKING ON THE PHONE, NO DISTRESS NOTED. 400 CC OF CLEAR YELLOW URINE EMPTIED FROM URINAL. BED IN LOWER POSITION, CALL LIGHT AT REACH.
[2018-10-01] MEDS: FUROSEMIDE 20 MG TAB PO SCH (08:58)
[2018-10-01] MEDS: CLOPIDOGREL BISULFATE 75 MG TAB PO SCH (08:58)
[2018-10-01] MEDS: LISINOPRIL 10 MG TAB PO SCH (08:58)
[2018-10-01] MEDS: METOPROLOL SUCCINATE 50 MG TAB XL PO SCH (08:58)
[2018-10-01] MEDS: HYDRALAZINE HCL 25 MG TAB PO SCH ×3 (08:58→20:11)
[2018-10-01] MEDS: LEVETIRACETAM 500 MG TAB PO SCH ×2 (08:58→17:14)
[2018-10-01] MEDS: VENLAFAXINE HCL 75 MG TAB PO SCH (08:58)
[2018-10-01] MEDS: DOCUSATE SODIUM 100 MG CAP PO SCH ×2 (08:58→20:11)
[2018-10-01] MEDS: AMIODARONE HCL 200 MG TAB PO SCH (08:58)
[2018-10-01] MEDS: JARDIANCE 25MG PO SCH (08:58)
--- NOTE | 2018-10-01 11:02 | NUR ---
PATIENT AMBULATING IN HALLWAY WITH PHYSICAL THERAPY, NO DISTRESS NOTED. WILL CONTINUE TO MONITOR.
--- NOTE | 2018-10-01 14:40 | NUR ---
DISCUSSED IN BARRIER ROUNDS, PT PENDING AUTH FROM [facility].
--- NOTE | 2018-10-01 16:35 | NUR ---
PATIENT ASSISTED WITH SHOWER, BACK IN BED WATCHING TV. ALL PERSONAL ITEMS CLOSE TO PATIENT, CALL LIGHT AT REACH.
[2018-10-01] MEDS: AZITHROMYCIN 500MG/NS 250 ML 250 ML IV SCH (16:52)
--- NOTE | 2018-10-01 18:04 | Progress Note ---
DATE: Internal Medicine Progress Note He is doing better. PHYSICAL EXAMINATION: HEART: Regular rhythm. Normal S1, S2 sound. LUNGS: Clear bilaterally. ABDOMEN: Soft. EXTREMITIES: No evidence of cyanosis or hematoma. VITAL SIGNS: Blood pressure 109/61, temperature 97.9, heart rate 64 per minute, respiratory rate 19 per minute, and oxygen saturation 96%. LABORATORY STUDIES: On the blood work, we have BMP; sodium 138, potassium 3.5, chloride 101, CO2 28, BUN 27, creatinine 1.10, glucose 95. CBC; white count 6.29, hemoglobin 13.3, hematocrit 41.3, platelet count of 129,000. PT 14.3, PTT 26.8, INR 1.06. AST 27, ALT 23, total bilirubin 0.5, alkaline phosphatase 107. IMPRESSION: 1. Right middle lobe pneumonia. 2. Hypoxia, respiratory failure. 3. 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 4. Obesity. 5. Coronary artery disease. PLAN OF TREATMENT: 1. Continue albuterol and Atrovent q.4 hours. 2. Continue Zithromax 250 mg IV once a day. 3. Ceftriaxone 2 g IV twice a day. 4. Hydralazine 50 mg three times a day. 5. Lipitor 20 mg daily. 6. Amiodarone 200 mg daily. 7. Keppra 750 mg twice a day. 8. Continue Plavix 75 mg daily. 9. Metoprolol 50 mg daily. 10. Colace 100 mg twice a day. 11. Furosemide 20 mg daily. 12. Effexor 75 mg daily. 13. Lisinopril 10 mg daily. 14. Lipitor has been placed on hold because of Zithromax. We are waiting on the decision from the insurance to see if the patient can go to [facility] due to the fact that he had hypoxemia. When he came he had pneumonia. He has multiple comorbidities. MD VANESSA Sloan/IVELISSE /[id number]
--- NOTE | 2018-10-01 19:15 | NUR ---
patient received awake, alert, sitting up in chair at the bedside. respirations even and unlabored. 02/2l/nc in use. no c/o pain noted at this time. iv site to left ac red. iv to be replaced. pm assessment complete. patient instructed to call for assistance when needed.
--- NOTE | 2018-10-01 21:50 | NUR ---
new iv #20 gauge placed to left upper arm x 1 stick. iv to left ac d/c'd due to redness at site. clean, dry dressing applied.
[2018-10-02] MEDS: ALBUTEROL SULF 0.083% NEB SOLN 3 ML NEB NEB SCH ×4 (02:46→15:27)
[2018-10-02] MEDS: IPRATROPIUM BROMIDE 0.02% 2.5 ML NEB NEB SCH ×4 (02:46→15:27)
[2018-10-02] MEDS: CEFTRIAXONE SOD 1 GM/NS 50 ML 50 ML IV SCH ×2 (02:51→15:45)
[2018-10-02 04:27] VITALS: BP 147/79
--- NOTE | 2018-10-02 07:30 | NUR ---
Pt sitting AAOx3, respiration even and unlabored. No acute distress noted.
[2018-10-02 08:00] VITALS: BP 148/75
[2018-10-02] MEDS: AMIODARONE HCL 200 MG TAB PO SCH (09:00)
[2018-10-02] MEDS: JARDIANCE 25MG PO SCH (09:00)
[2018-10-02] MEDS: FUROSEMIDE 20 MG TAB PO SCH (09:00)
[2018-10-02] MEDS: VENLAFAXINE HCL 75 MG TAB PO SCH (09:00)
[2018-10-02] MEDS: CLOPIDOGREL BISULFATE 75 MG TAB PO SCH (09:00)
[2018-10-02] MEDS: METOPROLOL SUCCINATE 50 MG TAB XL PO SCH (09:00)
[2018-10-02] MEDS: HYDRALAZINE HCL 25 MG TAB PO SCH ×2 (09:00→16:00)
[2018-10-02] MEDS: DOCUSATE SODIUM 100 MG CAP PO SCH (09:00)
[2018-10-02] MEDS: LISINOPRIL 10 MG TAB PO SCH (09:00)
[2018-10-02] MEDS: LEVETIRACETAM 500 MG TAB PO SCH ×2 (10:29→16:20)
[2018-10-02 12:00] VITALS: BP 139/65
[2018-10-02 16:00] VITALS: BP 147/75
[2018-10-02] MEDS: AZITHROMYCIN 500MG/NS 250 ML 250 ML IV SCH (16:12)
[2018-10-02] MEDS ORDERED: LEVOFLOXACIN 500MG/D5W 100ML 100 ML IV SCH (16:15)
--- NOTE | 2018-10-02 16:26 | NUR ---
LONG-TERM ACUTE CARE DISCHARGE INFORMATION PATIENT HAS BEEN ACCEPTED TO: NAME: [facility] ADDRESS: [address], [place] [address] ACCEPTING VP ACCOUNT DIRECTOR: KYLE KWON, BANQUET CAPTAIN ACCEPTING MD: RENE HAYES MD ROOM: 321 NURSE CALL REPORT TO: [phone] THE FOLLOWING DOCUMENTS MUST ACCOMPANY PATIENT FOR TRANSFER: COPIED CHART: BY MOT INFO RECEIVED FROM: [facility] ORDER/RECONCILED MED LIST: MARIA LUISA ODONNELL [id number] DNR: N/A
--- NOTE | 2018-10-02 18:39 | NUR ---
pt is sitting in chair, AAOx3 in no acute distress noted, respiration even and unlabored. 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
--- NOTE | 2018-10-02 19:20 | NUR ---
Patient visited in room during nursing rounds. Patient sitting at bedside chair. Pt alert and oriented x3. Pt aware he is scheduled to be transferred to [facility]. 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 V/S stable at this time. Pt denies any discomfort or pain. Call lay within reach.
--- NOTE | 2018-10-02 19:28 | Progress Note ---
DATE: Internal Medicine Progress Note SUBJECTIVE: The patient is doing well. OBJECTIVE: HEART: Regular rhythm. Normal S1, S2 sound. LUNGS: Clear bilaterally. EXTREMITIES: 2+ bilateral pedal edema. VITAL SIGNS: Blood pressure 139/65, temperature 93.1, heart rate 64 per minute, respiratory rate 16 per minute, and oxygen saturation 99%. LABORATORY DATA: On the blood work, we have BMP; sodium 138, potassium 3.5, chloride 101, CO2 28, BUN 27, creatinine 1.19, glucose 95. On the CBC, white blood count 6.29, hemoglobin 13.3, hematocrit 41.3, platelet count a 129,000. PT 14.3, INR 1.06, PTT 26.8. AST 27, ALT 23, total bilirubin 0.5, alkaline phosphatase 107. IMPRESSION: 1. Right middle lobe pneumonia. 2. Hypoxic respiratory failure, which is resolving. 3. Uncontrolled diabetes mellitus type 2 with chronic renal insufficiency, neuropathy. 4. Obesity. 5. Coronary artery disease. 6. Chronic renal failure, stage 3. PLAN OF TREATMENT: 1. We are going to continue albuterol and Atrovent q.4 hours. 2. Continue with Zithromax 250 mg IV once a day. 3. We are going to discontinue the ceftriaxone because apparently the patient had a reaction. 4. We are going to put him on Levaquin 500 mg IV daily. 5. Continue hydralazine 50 mg q.8 hours. 6. Lipitor 20 mg daily, going to be placed on hold because the patient is on Zithromax. 7. Continue amiodarone 200 mg daily. 8. Keppra 750 mg twice a day. 9. Continue Plavix 75 mg daily. 10. Metoprolol 50 mg daily. 11. Colace 100 mg twice a day. 12. Furosemide 20 mg daily. 13. Effexor 75 mg daily. 14. Lisinopril 10 mg daily. We are still waiting on the insurance to see if they can approve long-term care hospital due to the fact the patient has pneumonia and hypoxemia. MD VANESSA Sloan/IVELISSE /[id number]
[2018-10-02 20:08] VITALS: BP 143/64
--- NOTE | 2018-10-02 20:44 | NUR ---
Patient just left unit being escorted by EMT on stretcher bed. Pt left in stable condition. Pt left hospital via ambulance and headed to [place] [facility]
[2018-10-03] MEDS ORDERED: POTASSIUM CHLORIDE 20 MEQ TAB CR PO SCH (09:00)
[2018-10-03] MEDS ORDERED: FUROSEMIDE 40 MG TAB PO SCH (09:00)
--- NOTE | 2018-10-03 15:52 | Discharge Summary ---
HISTORY: A 78-year-old male with past medical history positive for coronary artery disease, hypertension, diabetes, came here with pneumonia, hypoxemia. He was started on IV antibiotics. He is going to be transferred to [facility]. PHYSICAL EXAMINATION: HEART: Showed regular rhythm. Normal S1, S2 sound. LUNGS: Clear bilaterally. ABDOMEN: Soft. FINAL IMPRESSION: 1. Lobar pneumonia. 2. Hypoxemia. 3. Hypertension. 4. Coronary artery disease. 5. Diabetes mellitus type 2 with chronic renal failure. 6. Coronary artery disease. PLAN OF TREATMENT: Continue current medications . MD VANESSA Sloan/IVELISSE /[id number]
== END 2018-10-02 20:38 | DRG 193 ==
LOC: ER 12:45 → ERHOLD 15:36 → MED/SURG3 17:03
PROVIDERS: ADMIT Internal Medicine; ATTEND Internal Medicine
DX: J18.1 Lobar pneumonia, unspecified organism (principal); J96.91 Respiratory failure, unspecified with hypoxia; I25.10 Atherosclerotic heart disease of native coronary artery without angina pectoris; E11.22 Type 2 diabetes mellitus with diabetic chronic kidney disease; I12.9 Hypertensive chronic kidney disease with stage 1 through stage 4 chronic kidney disease, or unspecified chronic kidney disease; N18.3 Chronic kidney disease, stage 3 (moderate); E11.65 Type 2 diabetes mellitus with hyperglycemia; E66.9 Obesity, unspecified; Z68.27 Body mass index [BMI] 27.0-27.9, adult; E11.40 Type 2 diabetes mellitus with diabetic neuropathy, unspecified
CPT/HCPCS: 36415; 70450; 71045; 80048; 80053; 81001; 82550; 82553; 82948; 83518; 83605; 83735; 83880; 84484; 85025; 85610; 85730; 87040; 87070; 87086; 87205; 87400; 93005; 94640; 97139; 99284; J0456; J0696; J1940; J1956; J7030; J7050